=== PATIENT | male | born 1965 | race Caucasian/White ===

== ENCOUNTER 2017-04-05 12:28 | Emergency (ER) | payer SELFPAY ==
[~2017-04-05] VITALS: Ht 190.5 cm; Wt 96.5 kg
[~2017-04-05 12:28] MED LIST: AMLO5TAB2; ASPI-496 PO; HYDR12.58; INSU100I13; INSU100I18; METF750T PO; OMEP-110; SIMV20TA3 PO; VALS80TA3
[2017-04-05 13:25] LABS: HEMATOCRIT 49.4 % (39.2-51.8); HEMOGLOBIN 16.8 g/dL (13.7-18.0); WHITE BLOOD COUNT 11.8 x10^3/uL (3.4-10)
[2017-04-05] MEDS ORDERED: ONDANSETRON 2MG/ML, 2ML IVPush ONE (13:30)
[2017-04-05] MEDS ORDERED: KETOROLAC 30 MG/1 ML IVPush ONE (13:30)
[2017-04-05] MEDS ORDERED: LORazepam 2 MG/ML, 1ML IVPush ONE (13:30)
[2017-04-05 13:37] LABS: BLOOD UREA NITROGEN 16 mg/dL (7-18)
[2017-04-05 13:41] LABS: IS PT STATUS REG ER OR PRE ER? YES
[2017-04-05] MEDS ORDERED: ONDANSETRON 2MG/ML, 2ML ONE (13:44)
[2017-04-05] MEDS ORDERED: KETOROLAC 30 MG/1 ML ONE (13:44)
[2017-04-05] MEDS ORDERED: LORazepam 2 MG/ML, 1ML ONE (13:45)
[2017-04-05 13:58] VITALS: BP 147/69
== END 2017-04-05 14:53 | disposition home or self-care (01) ==
LOC: ED 14:47
DX: R07.9 Chest pain, unspecified (principal); F17.210 Nicotine dependence, cigarettes, uncomplicated; E11.9 Type 2 diabetes mellitus without complications; I10 Essential (primary) hypertension
CPT/HCPCS: 36415; 71020; 80048; 82040; 84484; 85025; 93005; 96374; 96375; 99285; J1885; J2060; J2405

== ENCOUNTER 2017-06-22 18:38 | Emergency (ER) | payer MEDICAID, OTHER ==
[~2017-06-22] VITALS: Ht 170.2 cm; Wt 98.3 kg
[2017-06-22 18:49] VITALS: BP 135/86
[2017-06-22] MEDS ORDERED: OXYcodone/APAP 5/325MG TABLET PO ONE (19:30)
[2017-06-22] MEDS ORDERED: DIAZEPAM 5 MG TABLET PO ONE (19:30)
[2017-06-22] MEDS ORDERED: KETOROLAC 30 MG/1 ML IM ONE (19:30)
[2017-06-22] MEDS ORDERED: KETOROLAC 30 MG/1 ML ONE (20:15)
[2017-06-22] MEDS ORDERED: DIAZEPAM 5 MG TABLET ONE (20:15)
[2017-06-22] MEDS ORDERED: OXYcodone/APAP 5/325MG TABLET ONE (20:15)
[2017-06-22] MEDS ORDERED: HYDROmorphone 1 MG/ML, 1ML IM ONE (21:30)
[2017-06-22] MEDS ORDERED: HYDROmorphone 2 MG/ML, 1ML ONE (22:32)
== END 2017-06-23 02:46 | disposition home or self-care (01) ==
LOC: ED 23:59
DX: S39.012A Strain of muscle, fascia and tendon of lower back, initial encounter (principal); M62.830 Muscle spasm of back; I10 Essential (primary) hypertension; E11.9 Type 2 diabetes mellitus without complications; F17.200 Nicotine dependence, unspecified, uncomplicated; Z90.49 Acquired absence of other specified parts of digestive tract; Z95.5 Presence of coronary angioplasty implant and graft
CPT/HCPCS: 72110; 72148; 96372; 99284; J1170; J1885

== ENCOUNTER 2017-07-07 16:05 | Observation (INO) | payer MEDICAID, OTHER ==
[~2017-07-07] VITALS: Ht 170.2 cm; Wt 97.8 kg
[~2017-07-07 16:05] MED LIST changes: -AMLO5TAB2; +AMLO5TAB2 PO; -HYDR12.58; +HYDR12.58 PO; -OMEP-110; +OMEP-110 PO; -VALS80TA3; +VALS80TA3 PO
[2017-07-07] MEDS ORDERED: ASPIRIN 81 MG TABLET CHEW ONE (16:24)
[2017-07-07] MEDS ORDERED: ASPIRIN 81 MG TABLET CHEW PO ONE (16:30)
[2017-07-07 16:51] LABS: BASOPHILS # (AUTO) 0.03 x10^3/uL (0-0.1); BASOPHILS % (AUTO) 0 % (0-1); EOSINOPHILS # (AUTO) 0.01 x10^3/uL (0-0.4); EOSINOPHILS % (AUTO) 0 % (1-7); LYMPHOCYTES % (AUTO) 15 % (22-44); MD NO; MEAN CORPUSCULAR HEMOGLOBIN 29.9 pg (27.5-34.5); MEAN CORPUSCULAR HGB CONC 33.3 g/dL (33.2-36.2); MEAN CORPUSCULAR VOLUME 89.7 fL (81-97); MEAN PLATELET VOLUME 8.9 fL (7.4-10.4); MONOCYTES # (AUTO) 0.37 x10^3/uL (0.2-0.8); MONOCYTES % (AUTO) 5 % (2-9); NEUTROPHILS # (AUTO) 6.38 x10^3/uL (1.8-6.8); NEUTROPHILS % (AUTO) 80 % (42-75); PLATELET COUNT 169 x10^3/uL (130-400); RED BLOOD COUNT 5.58 x10^6/uL (4.38-5.82); RED CELL DISTRIBUTION WIDTH 13.1 % (9.4-14.8)
[2017-07-07] MEDS ORDERED: INSU100V8 SQ (16:52)
[2017-07-07] MEDS ORDERED: HUM100VI6 SQ-INSULIN (16:52)
[2017-07-07] MEDS ORDERED: ONDANSETRON 2MG/ML, 2ML IVPush ONE (17:00)
[2017-07-07 17:01] LABS: ALANINE AMINOTRANSFERASE 52 U/L (12-78); ALBUMIN 4.1 g/dL (3.4-5.0); ANION GAP 10 mmol/L (5-15); CALCIUM 9.1 mg/dL (8.5-10.1); CHLORIDE 106 mmol/L (98-107); CREATININE 1.22 mg/dL (0.7-1.3)
[2017-07-07 17:05] LABS: ALKALINE PHOSPHATASE 72 U/L (45-117); BILIRUBIN,TOTAL 0.6 mg/dL (0.2-1.0); TOTAL PROTEIN 7.6 g/dL (6.4-8.2); TROPONIN I < 0.015 ng/mL (0.000-0.045)
[2017-07-07] MEDS ORDERED: MORPHINE SULFATE 4 MG/ML, 1ML ONE ×2 (17:05→17:44)
[2017-07-07] MEDS ORDERED: ONDANSETRON 2MG/ML, 2ML ONE (17:05)
[2017-07-07] MEDS: MORPHINE SULFATE 4 MG/ML, 1ML IVPush PRN ×2 (17:09→17:46)
[2017-07-07] MEDS ORDERED: BISACODYL 10 MG SUPP PR PRN (18:00)
[2017-07-07] MEDS ORDERED: NITROGLYCERIN 0.4 MG BOTTLE (25 TABS) SL PRN (18:00)
[2017-07-07] MEDS ORDERED: ONDANSETRON 2MG/ML, 2ML IVPush PRN (18:00)
[2017-07-07] MEDS ORDERED: TEMAZEPAM 15 MG CAPSULE PO PRN (18:00)
[2017-07-07] MEDS ORDERED: ENALAPRILAT 1.25 MG/ML, 2ML IVPush PRN (18:00)
[2017-07-07] MEDS ORDERED: ACETAMINOPHEN 325 MG TABLET PO PRN (18:00)
[2017-07-07] MEDS ORDERED: OXYcodone/APAP 10/325MG TABLET ONE (18:41)
[2017-07-07] MEDS ORDERED: OXYcodone/APAP 10/325MG TABLET PO ONE (19:00)
[2017-07-07 19:20] VITALS: BP 134/80
[2017-07-07] MEDS: HEPARIN 5,000 UNITS/ML, 1ML SQ SCH (19:55)
[2017-07-07 22:48] LABS: TROPONIN I < 0.015 ng/mL (0.000-0.045)
[2017-07-07] MEDS: INSULIN LISPRO 100 UNITS/ML, PEN SQ-INSULIN SCH (22:57)
[2017-07-07 23:34] LABS: MICROSCOPIC NOT IND
[2017-07-07 23:39] LABS: CULTURE INDICATED? NO
[2017-07-07] MEDS: HYDROcodone/APAP 10/325 MG TABLET PO PRN (23:52)
[2017-07-08 01:25] VITALS: BP 145/71
[2017-07-08] MEDS: HYDROcodone/APAP 10/325 MG TABLET PO PRN ×3 (03:52→14:15)
[2017-07-08] MEDS: HEPARIN 5,000 UNITS/ML, 1ML SQ SCH ×2 (03:53→12:31)
[2017-07-08 05:10] LABS: BASOPHILS # (AUTO) 0.05 x10^3/uL (0-0.1); BASOPHILS % (AUTO) 1 % (0-1); EOSINOPHILS # (AUTO) 0.08 x10^3/uL (0-0.4); EOSINOPHILS % (AUTO) 1 % (1-7); LYMPHOCYTES # (AUTO) 2.86 x10^3/uL (1-3.4); LYMPHOCYTES % (AUTO) 36 % (22-44); MD NO; MEAN CORPUSCULAR HEMOGLOBIN 30.7 pg (27.5-34.5); MEAN CORPUSCULAR HGB CONC 34.2 g/dL (33.2-36.2); MEAN CORPUSCULAR VOLUME 89.7 fL (81-97); MEAN PLATELET VOLUME 9.1 fL (7.4-10.4); MONOCYTES % (AUTO) 8 % (2-9); NEUTROPHILS # (AUTO) 4.38 x10^3/uL (1.8-6.8); NEUTROPHILS % (AUTO) 55 % (42-75); PLATELET COUNT 141 x10^3/uL (130-400); RED BLOOD COUNT 4.95 x10^6/uL (4.38-5.82); RED CELL DISTRIBUTION WIDTH 13.4 % (9.4-14.8)
[2017-07-08 05:13] LABS: ANION GAP 9 mmol/L (5-15); CALCIUM 8.7 mg/dL (8.5-10.1); CHLORIDE 106 mmol/L (98-107)
[2017-07-08 05:19] LABS: CREATININE 0.83 mg/dL (0.7-1.3); TROPONIN I < 0.015 ng/mL (0.000-0.045)
[2017-07-08 07:19] VITALS: BP 130/83
[2017-07-08] MEDS: INSULIN LISPRO 100 UNITS/ML, PEN SQ-INSULIN SCH ×2 (08:41→12:30)
[2017-07-08] MEDS ORDERED: HYDROCHLOROTHIAZIDE 12.5 MG CAPSULE PO SCH (09:00)
[2017-07-08] MEDS ORDERED: AMLODIPINE 5 MG TABLET PO SCH (09:00)
[2017-07-08] MEDS ORDERED: INSULIN GLARGINE 100 UNITS/ML, PEN SQ-INSULIN SCH (09:00)
[2017-07-08] MEDS ORDERED: OMEPRAZOLE 20 MG CAPSULE.DR PO SCH (09:00)
[2017-07-08] MEDS ORDERED: IBUPROFEN 600 MG TABLET PO SCH (09:30)
[2017-07-08] MEDS ORDERED: IBUPROFEN 200 MG TABLET ONE (09:57)
[2017-07-08 13:03] VITALS: BP 121/72
== END 2017-07-08 16:44 | disposition home or self-care (01) ==
LOC: ED 17:21 → INTOOBSV 17:22 → EDIP 17:22 → ED 17:47 → 5SO 19:42 → DCLOUNGE 07-08 16:30
PROVIDERS: ADMIT Family Medicine; ATTEND Family Medicine
DX: R07.89 Other chest pain (principal); N45.1 Epididymitis; E11.65 Type 2 diabetes mellitus with hyperglycemia; I25.10 Atherosclerotic heart disease of native coronary artery without angina pectoris; I11.9 Hypertensive heart disease without heart failure; H72.92 Unspecified perforation of tympanic membrane, left ear; E66.9 Obesity, unspecified; Z72.0 Tobacco use; Z95.5 Presence of coronary angioplasty implant and graft; Z83.3 Family history of diabetes mellitus; Z79.82 Long term (current) use of aspirin; Z79.4 Long term (current) use of insulin
CPT/HCPCS: 36415; 70450; 71045; 80048; 80053; 81003; 82962; 83735; 83880; 84484; 85025; 93005; 96372; 96374; 96375; 96376; 99285; G0378; J1644; J1815; J2405

== ENCOUNTER 2017-07-09 20:56 | Emergency (ER) | payer MEDICAID, OTHER ==
[~2017-07-09] VITALS: Ht 170.2 cm; Wt 100.0 kg
[~2017-07-09 20:56] MED LIST changes: +HUM100VI6 SQ-INSULIN; +INSU100V8 SQ
[2017-07-09] MEDS ORDERED: ASPIRIN 81 MG TABLET CHEW PO ONE (22:00)
[2017-07-09] MEDS ORDERED: SODIUM CHLORIDE FLUSH 10ML SYR IVF ONE (22:00)
[2017-07-09] MEDS ORDERED: ONDANSETRON 2MG/ML, 2ML IVPush ONE (22:00)
[2017-07-09 22:20] LABS: BASOPHILS # (AUTO) 0.03 x10^3/uL (0-0.1); BASOPHILS % (AUTO) 0 % (0-1); EOSINOPHILS # (AUTO) 0.03 x10^3/uL (0-0.4); EOSINOPHILS % (AUTO) 0 % (1-7); LYMPHOCYTES # (AUTO) 2.27 x10^3/uL (1-3.4); LYMPHOCYTES % (AUTO) 22 % (22-44); MD NO; MEAN CORPUSCULAR HEMOGLOBIN 30.8 pg (27.5-34.5); MEAN CORPUSCULAR HGB CONC 34.4 g/dL (33.2-36.2); MEAN CORPUSCULAR VOLUME 89.5 fL (81-97); MEAN PLATELET VOLUME 8.8 fL (7.4-10.4); MONOCYTES # (AUTO) 0.74 x10^3/uL (0.2-0.8); MONOCYTES % (AUTO) 7 % (2-9); NEUTROPHILS % (AUTO) 71 % (42-75); PLATELET COUNT 176 x10^3/uL (130-400); RED BLOOD COUNT 5.56 x10^6/uL (4.38-5.82); RED CELL DISTRIBUTION WIDTH 13.4 % (9.4-14.8)
[2017-07-09] MEDS ORDERED: ONDANSETRON 2MG/ML, 2ML ONE (22:23)
[2017-07-09] MEDS ORDERED: ASPIRIN 81 MG TABLET CHEW ONE (22:23)
[2017-07-09 22:31] LABS: ALBUMIN 4.1 g/dL (3.4-5.0); ANION GAP 9 mmol/L (5-15); CALCIUM 9.1 mg/dL (8.5-10.1); CHLORIDE 106 mmol/L (98-107); CREATININE 1.07 mg/dL (0.7-1.3)
[2017-07-09 22:35] LABS: TROPONIN I < 0.015 ng/mL (0.000-0.045)
[2017-07-09 22:41] LABS: MICROSCOPIC NOT IND
[2017-07-09] MEDS ORDERED: OMNIPAQUE 350 MG/ML, 100ML BOTTLE ONE (22:47)
[2017-07-09 22:54] LABS: CULTURE INDICATED? NO
[2017-07-09] MEDS ORDERED: ACETAMINOPHEN 325 MG TABLET PO ONE (23:00)
[2017-07-09] MEDS ORDERED: ACETAMINOPHEN 325 MG TABLET ONE (23:01)
[2017-07-09] MEDS ORDERED: morphine SULFATE 10 MG/ML, 1ML ONE (23:52)
[2017-07-09 23:59] VITALS: BP 126/79
[2017-07-10] MEDS ORDERED: MORPHINE SULFATE 4 MG/ML, 1ML IVPush ONE
[2017-09-01] MEDS ORDERED: BISM262T9 PO (21:35)
[2017-09-01] MEDS ORDERED: METR500T PO (21:35)
[2017-09-01] MEDS ORDERED: DOXY100C15 PO (21:35)
== END 2017-07-10 00:46 | disposition home or self-care (01) ==
LOC: ED 21:39
DX: R07.89 Other chest pain (principal); N43.3 Hydrocele, unspecified; I10 Essential (primary) hypertension; E11.9 Type 2 diabetes mellitus without complications; Z90.49 Acquired absence of other specified parts of digestive tract; Z95.5 Presence of coronary angioplasty implant and graft
CPT/HCPCS: 36415; 71045; 71275; 76870; 80048; 81003; 82040; 84484; 85025; 93005; 96374; 96375; 99285; J2405; Q9967

== ENCOUNTER 2017-08-07 15:51 | Observation (INO) | payer MEDICAID, OTHER ==
[~2017-08-07] VITALS: Ht 170.2 cm; Wt 103.0 kg
[2017-08-07 16:12] LABS: BASOPHILS # (AUTO) 0.02 x10^3/uL (0-0.1); BASOPHILS % (AUTO) 0 % (0-1); EOSINOPHILS # (AUTO) 0.01 x10^3/uL (0-0.4); EOSINOPHILS % (AUTO) 0 % (1-7); LYMPHOCYTES % (AUTO) 21 % (22-44); MD NO; MEAN CORPUSCULAR HEMOGLOBIN 28.8 pg (27.5-34.5); MEAN CORPUSCULAR HGB CONC 32.3 g/dL (33.2-36.2); MEAN CORPUSCULAR VOLUME 89.3 fL (81-97); MEAN PLATELET VOLUME 9.2 fL (7.4-10.4); MONOCYTES # (AUTO) 0.42 x10^3/uL (0.2-0.8); MONOCYTES % (AUTO) 6 % (2-9); NEUTROPHILS # (AUTO) 5.27 x10^3/uL (1.8-6.8); NEUTROPHILS % (AUTO) 73 % (42-75); PLATELET COUNT 159 x10^3/uL (130-400); RED CELL DISTRIBUTION WIDTH 13.5 % (9.4-14.8)
[2017-08-07 16:21] LABS: INTERNATIONAL NORMALIZED RATIO 1.03 (0.93-1.1); PROTHROMBIN TIME 10.6 Seconds (9.6-11.5)
[2017-08-07 16:25] LABS: ALANINE AMINOTRANSFERASE 51 U/L (12-78); ALBUMIN 3.7 g/dL (3.4-5.0); ANION GAP 9 mmol/L (5-15); CALCIUM 8.8 mg/dL (8.5-10.1); CHLORIDE 106 mmol/L (98-107); CREATININE 0.88 mg/dL (0.7-1.3)
[2017-08-07 16:29] LABS: ALKALINE PHOSPHATASE 81 U/L (45-117); BILIRUBIN,TOTAL 0.5 mg/dL (0.2-1.0); TOTAL PROTEIN 6.8 g/dL (6.4-8.2); TROPONIN I < 0.015 ng/mL (0.000-0.045)
[2017-08-07] MEDS ORDERED: SODIUM CHLORIDE FLUSH 10ML SYR IVF ONE (16:30)
[2017-08-07] MEDS ORDERED: MAALOX/HYOSCYAMINE/LIDOCAINE 45 ML BTL PO ONE (16:30)
[2017-08-07] MEDS ORDERED: ONDANSETRON 2MG/ML, 2ML IVPush ONE (16:30)
[2017-08-07] MEDS: PLEASE ENTER HEIGHT AND WEIGHT MC SCH (16:30)
[2017-08-07] MEDS ORDERED: FAMOTIDINE 20 MG/2 ML IVPush ONE (16:30)
[2017-08-07] MEDS ORDERED: MORPHINE SULFATE 4 MG/ML, 1ML IVPush PRN (16:30)
[2017-08-07] MEDS ORDERED: MAALOX/HYOSCYAMINE/LIDOCAINE 45 ML BTL ONE (16:45)
[2017-08-07] MEDS ORDERED: MORPHINE SULFATE 4 MG/ML, 1ML ONE ×2 (16:45→18:00)
[2017-08-07] MEDS ORDERED: FAMOTIDINE 20 MG/2 ML ONE (16:46)
[2017-08-07] MEDS ORDERED: AMLO5TAB2 PO (18:11)
[2017-08-07] MEDS ORDERED: LISI40TA PO (18:11)
[2017-08-07] MEDS ORDERED: HYDR12.53 PO (18:11)
[2017-08-07] MEDS ORDERED: OMEP-110 PO (18:11)
[2017-08-07] MEDS ORDERED: METF1000 PO (18:11)
[2017-08-07] MEDS ORDERED: HYDR-883 PO (18:13)
[2017-08-07] MEDS ORDERED: NITROGLYCERIN 0.4 MG/SPRAY SL PRN (19:00)
[2017-08-07] MEDS ORDERED: ONDANSETRON ODT 4 MG PO PRN (19:00)
[2017-08-07] MEDS ORDERED: NITROGLYCERIN 0.4 MG BOTTLE (25 TABS) SL PRN (19:00)
[2017-08-07] MEDS ORDERED: DOCUSATE 100 MG CAPSULE PO PRN (19:00)
[2017-08-07] MEDS ORDERED: ACETAMINOPHEN 325 MG TABLET PO PRN (19:00)
[2017-08-07] MEDS ORDERED: ENALAPRILAT 1.25 MG/ML, 2ML IVPush PRN (19:00)
[2017-08-07] MEDS ORDERED: TEMAZEPAM 15 MG CAPSULE PO PRN (19:00)
[2017-08-07 19:10] VITALS: BP 138/79
[2017-08-07] MEDS: OMEPRAZOLE 20 MG CAPSULE.DR PO SCH (21:32)
[2017-08-07] MEDS: HYDROCHLOROTHIAZIDE 25 MG TABLET PO SCH (21:33)
[2017-08-07] MEDS: INSULIN HUMULIN 70/30, 3ML PEN SQ-INSULIN SCH (22:15)
[2017-08-07 22:18] VITALS: BP 143/81
[2017-08-07 22:23] LABS: TROPONIN I < 0.015 ng/mL (0.000-0.045)
[2017-08-07 22:24] VITALS: BP 132/77
[2017-08-07 22:30] VITALS: BP 152/77
[2017-08-07 22:35] VITALS: BP 115/67
[2017-08-07 22:41] VITALS: BP 116/70
[2017-08-08] MEDS: PLEASE ENTER HEIGHT AND WEIGHT MC SCH ×3 (00:30→16:30)
[2017-08-08 01:55] VITALS: BP 130/75
[2017-08-08 04:23] LABS: BASOPHILS # (AUTO) 0.06 x10^3/uL (0-0.1); BASOPHILS % (AUTO) 1 % (0-1); EOSINOPHILS # (AUTO) 0.05 x10^3/uL (0-0.4); EOSINOPHILS % (AUTO) 1 % (1-7); LYMPHOCYTES # (AUTO) 2.48 x10^3/uL (1-3.4); LYMPHOCYTES % (AUTO) 38 % (22-44); MD NO; MEAN CORPUSCULAR HEMOGLOBIN 30.5 pg (27.5-34.5); MEAN CORPUSCULAR HGB CONC 34.5 g/dL (33.2-36.2); MEAN CORPUSCULAR VOLUME 88.3 fL (81-97); MEAN PLATELET VOLUME 8.8 fL (7.4-10.4); MONOCYTES # (AUTO) 0.57 x10^3/uL (0.2-0.8); MONOCYTES % (AUTO) 9 % (2-9); NEUTROPHILS # (AUTO) 3.31 x10^3/uL (1.8-6.8); NEUTROPHILS % (AUTO) 51 % (42-75); PLATELET COUNT 151 x10^3/uL (130-400); RED BLOOD COUNT 5.13 x10^6/uL (4.38-5.82); RED CELL DISTRIBUTION WIDTH 13.7 % (9.4-14.8)
[2017-08-08 04:34] LABS: ANION GAP 5 mmol/L (5-15); CALCIUM 8.6 mg/dL (8.5-10.1); CHLORIDE 105 mmol/L (98-107); CHOLESTEROL, TOTAL 173 mg/dL (140-239); CREATININE 0.98 mg/dL (0.7-1.3); TRIGLYCERIDES 254 mg/dL (50-200); VLDL CHOLESTEROL 51 mg/dL (0-25)
[2017-08-08 04:38] LABS: CHOL/HDL RATIO 5.1; HDL CHOL % 20 % (26-37); HDL CHOLESTEROL (DIRECT) 34 mg/dL (40-60); LDL CHOLESTEROL,CALCULATED 88 mg/dL (54-169); LDL/HDL RATIO 2.6 (0.5-3.0); TROPONIN I < 0.015 ng/mL (0.000-0.045)
[2017-08-08] MEDS: ASPIRIN 81 MG TABLET EC PO SCH (06:11)
[2017-08-08 07:23] VITALS: BP 130/79
[2017-08-08] MEDS: INSULIN HUMULIN 70/30, 3ML PEN SQ-INSULIN SCH ×3 (08:09→16:18)
[2017-08-08] MEDS ORDERED: AMLODIPINE 5 MG TABLET PO SCH (09:00)
[2017-08-08] MEDS: ISOSORBIDE MONONITRATE ER 60 MG TABLET PO SCH (09:10)
[2017-08-08] MEDS: LISINOPRIL 20 MG TABLET PO SCH ×2 (09:10→21:16)
[2017-08-08] MEDS: HYDROCHLOROTHIAZIDE 25 MG TABLET PO SCH ×2 (09:10→21:16)
[2017-08-08] MEDS: OMEPRAZOLE 20 MG CAPSULE.DR PO SCH ×2 (09:10→21:16)
[2017-08-08] MEDS: INSULIN GLARGINE 100 UNITS/ML, PEN SQ-INSULIN SCH (09:43)
[2017-08-08] MEDS ORDERED: IBUPROFEN 600 MG TABLET ONE (11:18)
[2017-08-08] MEDS: IBUPROFEN 200 MG TABLET PO SCH ×3 (11:19→21:15)
[2017-08-08 14:10] VITALS: BP 108/64
[2017-08-08] MEDS ORDERED: CALCIUM CARBONATE 500 MG TAB.CHEW PO PRN (16:30)
[2017-08-08 20:00] VITALS: BP 117/65
[2017-08-09 01:12] VITALS: BP 112/69
[2017-08-09] MEDS: ASPIRIN 81 MG TABLET EC PO SCH (05:19)
[2017-08-09 07:52] VITALS: BP 130/77
[2017-08-09] MEDS: IBUPROFEN 200 MG TABLET PO SCH (07:57)
[2017-08-09] MEDS: LISINOPRIL 20 MG TABLET PO SCH (07:57)
[2017-08-09] MEDS: ISOSORBIDE MONONITRATE ER 60 MG TABLET PO SCH (07:58)
[2017-08-09] MEDS: OMEPRAZOLE 20 MG CAPSULE.DR PO SCH (07:58)
[2017-08-09] MEDS: INSULIN GLARGINE 100 UNITS/ML, PEN SQ-INSULIN SCH (07:59)
[2017-08-09] MEDS: HYDROCHLOROTHIAZIDE 25 MG TABLET PO SCH (07:59)
[2017-08-09] MEDS: INSULIN HUMULIN 70/30, 3ML PEN SQ-INSULIN SCH ×2 (08:00→12:04)
[2017-08-09] MEDS ORDERED: ISOS60TA36 PO (12:04)
== END 2017-08-09 14:20 | disposition home or self-care (01) ==
LOC: ED 16:34 → EDIP 18:05 → INTOOBSV 18:05 → 5SO 19:31 → DCLOUNGE 08-09 14:16
PROVIDERS: ADMIT Hospitalist; ATTEND Family Medicine
DX: R07.9 Chest pain, unspecified (principal); I25.10 Atherosclerotic heart disease of native coronary artery without angina pectoris; I11.9 Hypertensive heart disease without heart failure; Z87.891 Personal history of nicotine dependence; E11.65 Type 2 diabetes mellitus with hyperglycemia; K21.9 Gastro-esophageal reflux disease without esophagitis; E78.5 Hyperlipidemia, unspecified; R00.1 Bradycardia, unspecified; Z83.3 Family history of diabetes mellitus
CPT/HCPCS: 36415; 71045; 80048; 80053; 80061; 82962; 83690; 83735; 83880; 84484; 85025; 85610; 85730; 93005; 93306; 96372; 96374; 96375; 99285; G0378; J1815; S0028

== ENCOUNTER 2017-08-16 16:48 | Inpatient (IN) | payer MEDICAID, OTHER ==
[~2017-08-16] VITALS: Ht 170.2 cm; Wt 101.0 kg
[~2017-08-16 16:48] MED LIST changes: +HYDR-883 PO; +HYDR12.53 PO; +ISOS60TA36 PO; +LISI40TA PO; +METF1000 PO
[2017-08-16] MEDS ORDERED: SODIUM CHLORIDE 0.9% 1,000 ML IV ONE (17:41)
[2017-08-16] MEDS ORDERED: SODIUM CHLORIDE 0.9% 1,000ML IVBOLUS ONE (18:00)
[2017-08-16] MEDS ORDERED: ONDANSETRON 2MG/ML, 2ML IVPush ONE (18:00)
[2017-08-16 18:08] LABS: BASOPHILS # (AUTO) 0.03 x10^3/uL (0-0.1); BASOPHILS % (AUTO) 0 % (0-1); EOSINOPHILS # (AUTO) 0.05 x10^3/uL (0-0.4); EOSINOPHILS % (AUTO) 1 % (1-7); LYMPHOCYTES # (AUTO) 1.58 x10^3/uL (1-3.4); LYMPHOCYTES % (AUTO) 23 % (22-44); MD NO; MEAN CORPUSCULAR HEMOGLOBIN 30.6 pg (27.5-34.5); MEAN CORPUSCULAR HGB CONC 34.3 g/dL (33.2-36.2); MEAN CORPUSCULAR VOLUME 89.2 fL (81-97); MEAN PLATELET VOLUME 9.5 fL (7.4-10.4); MONOCYTES # (AUTO) 0.86 x10^3/uL (0.2-0.8); MONOCYTES % (AUTO) 13 % (2-9); NEUTROPHILS # (AUTO) 4.35 x10^3/uL (1.8-6.8); NEUTROPHILS % (AUTO) 63 % (42-75); PLATELET COUNT 174 x10^3/uL (130-400); RED BLOOD COUNT 5.78 x10^6/uL (4.38-5.82); RED CELL DISTRIBUTION WIDTH 13.7 % (9.4-14.8)
[2017-08-16 18:13] LABS: ALANINE AMINOTRANSFERASE 66 U/L (12-78); ALBUMIN 4.2 g/dL (3.4-5.0); ANION GAP 10 mmol/L (5-15); CALCIUM 9.4 mg/dL (8.5-10.1); CHLORIDE 105 mmol/L (98-107); CREATININE 1.13 mg/dL (0.7-1.3)
[2017-08-16 18:16] LABS: ALKALINE PHOSPHATASE 103 U/L (45-117); BILIRUBIN,TOTAL 0.4 mg/dL (0.2-1.0); TOTAL PROTEIN 7.8 g/dL (6.4-8.2)
[2017-08-16] MEDS ORDERED: MORPHINE SULFATE 4 MG/ML, 1ML ONE ×2 (18:49→20:46)
[2017-08-16] MEDS ORDERED: ONDANSETRON 2MG/ML, 2ML ONE (18:49)
[2017-08-16] MEDS: MORPHINE SULFATE 4 MG/ML, 1ML IVPush PRN ×2 (18:58→20:50)
[2017-08-16] MEDS ORDERED: MAALOX/HYOSCYAMINE/LIDOCAINE 45 ML BTL PO ONE (19:30)
[2017-08-16] MEDS ORDERED: MAALOX/HYOSCYAMINE/LIDOCAINE 45 ML BTL ONE (19:48)
[2017-08-16] MEDS ORDERED: PROMETHAZINE 25 MG/ML, 1ML IM ONE (20:30)
[2017-08-16] MEDS ORDERED: OMNIPAQUE 350 MG/ML, 100ML BOTTLE ONE (20:45)
[2017-08-16] MEDS ORDERED: PROMETHAZINE 25 MG/ML, 1ML ONE (20:46)
[2017-08-16 21:16] LABS: MICROSCOPIC NOT IND
[2017-08-16 21:20] LABS: CULTURE INDICATED? NO
[2017-08-16] MEDS ORDERED: CLARITHROMYCIN 500 MG TABLET PO ONE (22:00)
[2017-08-16] MEDS ORDERED: PANTOPRAZOLE 40 MG IV ONE (22:01)
[2017-08-16] MEDS: AMOXICILLIN 500 MG CAPSULE PO SCH (22:21)
[2017-08-16] MEDS ORDERED: GLUCAGON 1 MG IM PRN (22:30)
[2017-08-16] MEDS ORDERED: DEXTROSE 4 GM TAB.CHEW PO PRN (22:30)
[2017-08-16] MEDS ORDERED: hydrALAzine 20 MG/ML, 1ML IVPush PRN (22:30)
[2017-08-16] MEDS ORDERED: ONDANSETRON 2MG/ML, 2ML IVPush PRN (22:30)
[2017-08-16] MEDS ORDERED: DEXTROSE 50%, 50ML SYRINGE IVPush PRN (22:30)
[2017-08-16] MEDS ORDERED: ACETAMINOPHEN 325 MG TABLET PO PRN (22:30)
[2017-08-16] MEDS: INSULIN LISPRO 100 UNITS/ML, PEN SQ-INSULIN SCH (23:00)
[2017-08-17] MEDS ORDERED: HYDR-879 PO (00:01)
[2017-08-17] MEDS: SODIUM CHLORIDE 0.9% 1,000 ML IV SCH ×3 (00:16→22:52)
[2017-08-17] MEDS ORDERED: morphine SULFATE 10 MG/ML, 1ML IVPush ONE (03:10)
[2017-08-17 03:14] VITALS: BP 125/78
[2017-08-17 06:51] VITALS: BP 137/82
[2017-08-17] MEDS ORDERED: PANTOPRAZOLE 40 MG IV IVPush SCH ×2 (07:30→09:00)
[2017-08-17] MEDS: INSULIN LISPRO 100 UNITS/ML, PEN SQ-INSULIN SCH ×4 (08:07→20:13)
[2017-08-17] MEDS: SODIUM CHLORIDE FLUSH 10ML SYR IVF SCH ×2 (09:00→20:09)
[2017-08-17] MEDS: morphine SULFATE 10 MG/ML, 1ML IVPush PRN ×2 (10:30→17:31)
[2017-08-17] MEDS: AMOXICILLIN 500 MG CAPSULE PO SCH ×2 (10:30→20:08)
[2017-08-17 13:09] VITALS: BP 127/88
[2017-08-17] MEDS ORDERED: FENTANYL PF 100 MCG/2ML ONE (15:12)
[2017-08-17] MEDS ORDERED: MIDAZOLAM 1 MG/ML, 2ML ONE (15:12)
[2017-08-17] MEDS: PANTOPRAZOLE 40 MG IV IVPush SCH (18:29)
[2017-08-17] MEDS ORDERED: HYDROcodone/APAP 10/325 MG TABLET ONE (18:50)
[2017-08-17] MEDS: HYDROcodone/APAP 10/325 MG TABLET PO PRN ×2 (18:53→20:08)
[2017-08-17 20:29] VITALS: BP 134/72
[2017-08-18] MEDS: HYDROcodone/APAP 10/325 MG TABLET PO PRN ×4 (01:28→15:02)
[2017-08-18 01:55] VITALS: BP 127/77
[2017-08-18] MEDS: PANTOPRAZOLE 40 MG IV IVPush SCH (06:20)
[2017-08-18] MEDS: SODIUM CHLORIDE FLUSH 10ML SYR IVF SCH (07:30)
[2017-08-18] MEDS: AMOXICILLIN 500 MG CAPSULE PO SCH (07:31)
[2017-08-18] MEDS: INSULIN LISPRO 100 UNITS/ML, PEN SQ-INSULIN SCH ×2 (07:31→12:18)
[2017-08-18 08:19] VITALS: BP 147/84
[2017-08-18] MEDS: SODIUM CHLORIDE 0.9% 1,000 ML IV SCH (08:30)
[2017-08-18 13:38] VITALS: BP 135/72
== END 2017-08-18 15:45 | disposition home or self-care (01) | DRG 379 ==
LOC: ED 21:12 → EDIP 21:30 → 4NOR 23:39 → DCLOUNGE 08-18 15:35
PROVIDERS: ADMIT Hospitalist; ATTEND Hospitalist
PROC: 0DJ08ZZ Inspection of Upper Intestinal Tract, Via Natural or Artificial Opening Endoscopic (ICD-10-PCS; principal; 2017-08-17 15:30)
DX: K28.0 Acute gastrojejunal ulcer with hemorrhage (principal); E11.65 Type 2 diabetes mellitus with hyperglycemia; I11.9 Hypertensive heart disease without heart failure; B96.81 Helicobacter pylori [H. pylori] as the cause of diseases classified elsewhere; E66.9 Obesity, unspecified; E78.5 Hyperlipidemia, unspecified; K31.89 Other diseases of stomach and duodenum; F17.210 Nicotine dependence, cigarettes, uncomplicated; I25.10 Atherosclerotic heart disease of native coronary artery without angina pectoris; K29.60 Other gastritis without bleeding; Z79.891 Long term (current) use of opiate analgesic; Z83.3 Family history of diabetes mellitus; Z86.19 Personal history of other infectious and parasitic diseases; Z90.49 Acquired absence of other specified parts of digestive tract; Z95.5 Presence of coronary angioplasty implant and graft; Z68.34 Body mass index [BMI] 34.0-34.9, adult
CPT/HCPCS: 36415; 74022; 74177; 76705; 80053; 81003; 82962; 83690; 85025; 86677; 96361; 96372; 96374; 96375; 96376; 99152; 99153; J2250; J2405; J2550; J3010; Q9967; C9113; J1815; J2270; J7030

== ENCOUNTER 2017-09-05 21:04 | Emergency (ER) | payer SELFPAY ==
[~2017-09-05] VITALS: Ht 170.2 cm; Wt 99.0 kg
[~2017-09-05 21:04] MED LIST changes: +BISM262T9 PO; +DOXY100C15 PO; +HYDR-879 PO; +METR500T PO
[2017-09-05 22:20] LABS: BASOPHILS # (AUTO) 0.04 x10^3/uL (0-0.1); BASOPHILS % (AUTO) 1 % (0-1); EOSINOPHILS # (AUTO) 0.06 x10^3/uL (0-0.4); EOSINOPHILS % (AUTO) 1 % (1-7); LYMPHOCYTES # (AUTO) 2.13 x10^3/uL (1-3.4); LYMPHOCYTES % (AUTO) 31 % (22-44); MD NO; MEAN CORPUSCULAR HEMOGLOBIN 29.8 pg (27.5-34.5); MEAN CORPUSCULAR HGB CONC 33.9 g/dL (33.2-36.2); MEAN CORPUSCULAR VOLUME 87.9 fL (81-97); MEAN PLATELET VOLUME 8.5 fL (7.4-10.4); MONOCYTES # (AUTO) 0.54 x10^3/uL (0.2-0.8); MONOCYTES % (AUTO) 8 % (2-9); NEUTROPHILS # (AUTO) 4.04 x10^3/uL (1.8-6.8); NEUTROPHILS % (AUTO) 59 % (42-75); PLATELET COUNT 164 x10^3/uL (130-400); RED BLOOD COUNT 5.27 x10^6/uL (4.38-5.82); RED CELL DISTRIBUTION WIDTH 13.5 % (9.4-14.8)
[2017-09-05 22:28] LABS: MICROSCOPIC NOT IND
[2017-09-05 22:31] LABS: CULTURE INDICATED? NO
[2017-09-05 22:33] LABS: ALBUMIN 3.8 g/dL (3.4-5.0); ANION GAP 9 mmol/L (5-15); CALCIUM 8.9 mg/dL (8.5-10.1); CHLORIDE 105 mmol/L (98-107)
[2017-09-05 22:39] LABS: ALANINE AMINOTRANSFERASE 59 U/L (12-78); ALKALINE PHOSPHATASE 98 U/L (45-117); BILIRUBIN,TOTAL 0.4 mg/dL (0.2-1.0); CREATININE 0.95 mg/dL (0.7-1.3); TOTAL PROTEIN 7.2 g/dL (6.4-8.2); TROPONIN I < 0.015 ng/mL (0.000-0.045)
[2017-09-05] MEDS ORDERED: MAALOX/HYOSCYAMINE/LIDOCAINE 45 ML BTL ONE (22:49)
[2017-09-05] MEDS ORDERED: MAALOX/HYOSCYAMINE/LIDOCAINE 45 ML BTL PO ONE (23:00)
[2017-09-05 23:29] VITALS: BP 121/80
== END 2017-09-05 23:32 | disposition home or self-care (01) ==
LOC: ED 22:17
DX: R10.13 Epigastric pain (principal); E78.5 Hyperlipidemia, unspecified; E11.9 Type 2 diabetes mellitus without complications; I10 Essential (primary) hypertension; Z90.49 Acquired absence of other specified parts of digestive tract; I25.10 Atherosclerotic heart disease of native coronary artery without angina pectoris; Z95.5 Presence of coronary angioplasty implant and graft
CPT/HCPCS: 36415; 74022; 80053; 81003; 83690; 83880; 84484; 85025; 93005; 99285

== ENCOUNTER 2017-09-28 13:27 | Emergency (ER) | payer MEDICARE, OTHER ==
[~2017-09-28] VITALS: Ht 170.2 cm; Wt 105.3 kg
[2017-09-28] MEDS ORDERED: NITROGLYCERIN (14:18)
[2017-09-28] MEDS ORDERED: antibiotic (14:20)
[2017-09-28] MEDS ORDERED: HYDROcodone/APAP 5/325 TABLET PO ONE (15:30)
[2017-09-28] MEDS ORDERED: MAALOX/HYOSCYAMINE/LIDOCAINE 45 ML BTL PO ONE (15:30)
[2017-09-28] MEDS ORDERED: HYDROcodone/APAP 5/325 TABLET ONE (15:39)
[2017-09-28] MEDS ORDERED: MAALOX/HYOSCYAMINE/LIDOCAINE 45 ML BTL ONE (15:40)
[2017-09-28] MEDS ORDERED: AMLO10TA2 PO (15:45)
[2017-09-28] MEDS ORDERED: LOSA1TAB25 PO (15:45)
[2017-09-28 15:53] LABS: BASOPHILS # (AUTO) 0.04 x10^3/uL (0-0.1); BASOPHILS % (AUTO) 1 % (0-1); EOSINOPHILS # (AUTO) 0.07 x10^3/uL (0-0.4); EOSINOPHILS % (AUTO) 1 % (1-7); LYMPHOCYTES # (AUTO) 2.45 x10^3/uL (1-3.4); LYMPHOCYTES % (AUTO) 34 % (22-44); MD NO; MEAN CORPUSCULAR HEMOGLOBIN 29.8 pg (27.5-34.5); MEAN CORPUSCULAR VOLUME 87.5 fL (81-97); MEAN PLATELET VOLUME 8.8 fL (7.4-10.4); MONOCYTES # (AUTO) 0.56 x10^3/uL (0.2-0.8); MONOCYTES % (AUTO) 8 % (2-9); NEUTROPHILS # (AUTO) 4.14 x10^3/uL (1.8-6.8); NEUTROPHILS % (AUTO) 57 % (42-75); PLATELET COUNT 156 x10^3/uL (130-400); RED BLOOD COUNT 5.33 x10^6/uL (4.38-5.82); RED CELL DISTRIBUTION WIDTH 13.5 % (9.4-14.8)
[2017-09-28 16:03] LABS: ALANINE AMINOTRANSFERASE 72 U/L (12-78); ALBUMIN 4.1 g/dL (3.4-5.0); ANION GAP 10 mmol/L (5-15); CALCIUM 8.8 mg/dL (8.5-10.1); CHLORIDE 98 mmol/L (98-107); CREATININE 1.01 mg/dL (0.7-1.3)
[2017-09-28 16:07] LABS: ALKALINE PHOSPHATASE 119 U/L (45-117); BILIRUBIN,TOTAL 0.3 mg/dL (0.2-1.0); TOTAL PROTEIN 7.7 g/dL (6.4-8.2); TROPONIN I < 0.015 ng/mL (0.000-0.045)
[2017-09-28 17:49] VITALS: BP 120/90
== END 2017-09-28 18:32 | disposition home or self-care (01) ==
LOC: ED 17:24
DX: K21.9 Gastro-esophageal reflux disease without esophagitis (principal); I10 Essential (primary) hypertension; R07.89 Other chest pain; E11.9 Type 2 diabetes mellitus without complications; I25.10 Atherosclerotic heart disease of native coronary artery without angina pectoris; Z90.49 Acquired absence of other specified parts of digestive tract; Z87.891 Personal history of nicotine dependence
CPT/HCPCS: 36415; 71045; 80053; 83690; 84484; 85025; 93005; 99285

== ENCOUNTER 2017-10-17 20:30 | Emergency (ER) | payer SELFPAY ==
[~2017-10-17] VITALS: Ht 167.6 cm; Wt 102.0 kg
[~2017-10-17 20:30] MED LIST changes: +AMLO10TA2 PO; +LOSA1TAB25 PO; +NITROGLYCERIN; +antibiotic
[2017-10-17] MEDS ORDERED: LISI2.5T PO (20:50)
[2017-10-17] MEDS ORDERED: HYDR12.53 PO (20:50)
[2017-10-17] MEDS ORDERED: MORPHINE SULFATE 4 MG/ML, 1ML ONE (21:08)
[2017-10-17] MEDS ORDERED: SODIUM CHLORIDE FLUSH 10ML SYR IVF ONE (21:30)
[2017-10-17] MEDS ORDERED: MORPHINE SULFATE 4 MG/ML, 1ML IVPush PRN (21:30)
[2017-10-17 21:37] LABS: BASOPHILS # (AUTO) 0.04 x10^3/uL (0-0.1); BASOPHILS % (AUTO) 1 % (0-1); EOSINOPHILS # (AUTO) 0.02 x10^3/uL (0-0.4); EOSINOPHILS % (AUTO) 0 % (1-7); LYMPHOCYTES # (AUTO) 2.16 x10^3/uL (1-3.4); LYMPHOCYTES % (AUTO) 26 % (22-44); MD NO; MEAN CORPUSCULAR HEMOGLOBIN 30.2 pg (27.5-34.5); MEAN CORPUSCULAR HGB CONC 34.3 g/dL (33.2-36.2); MEAN CORPUSCULAR VOLUME 88.1 fL (81-97); MEAN PLATELET VOLUME 9.6 fL (7.4-10.4); MONOCYTES # (AUTO) 0.67 x10^3/uL (0.2-0.8); MONOCYTES % (AUTO) 8 % (2-9); NEUTROPHILS # (AUTO) 5.35 x10^3/uL (1.8-6.8); NEUTROPHILS % (AUTO) 65 % (42-75); PLATELET COUNT 163 x10^3/uL (130-400); RED CELL DISTRIBUTION WIDTH 13.9 % (9.4-14.8)
[2017-10-17 21:46] LABS: ALBUMIN 3.9 g/dL (3.4-5.0); ANION GAP 13 mmol/L (5-15); CALCIUM 9.2 mg/dL (8.5-10.1); CHLORIDE 107 mmol/L (98-107)
[2017-10-17 21:48] VITALS: BP 142/70
[2017-10-17 21:51] LABS: ALANINE AMINOTRANSFERASE 106 U/L (12-78); ALKALINE PHOSPHATASE 89 U/L (45-117); BILIRUBIN,TOTAL 0.6 mg/dL (0.2-1.0); CREATININE 0.96 mg/dL (0.7-1.3); TROPONIN I < 0.015 ng/mL (0.000-0.045)
== END 2017-10-17 22:38 | disposition home or self-care (01) ==
LOC: ED 21:22
DX: R07.2 Precordial pain (principal); I25.2 Old myocardial infarction; I25.10 Atherosclerotic heart disease of native coronary artery without angina pectoris
CPT/HCPCS: 36415; 71045; 80053; 83880; 84484; 85025; 93005; 96374

== ENCOUNTER 2017-11-06 12:33 | Emergency (ER) | payer SELFPAY ==
[~2017-11-06] VITALS: Ht 167.6 cm; Wt 93.0 kg
[~2017-11-06 12:33] MED LIST changes: +LISI2.5T PO
[2017-11-06 12:42] VITALS: BP 142/79
[2017-11-06] MEDS ORDERED: METO25TA35 PO (12:45)
[2017-11-06] MEDS ORDERED: MORPHINE SULFATE 4 MG/ML, 1ML IVPush PRN (13:00)
[2017-11-06] MEDS ORDERED: SODIUM CHLORIDE FLUSH 10ML SYR IVF ONE (13:00)
[2017-11-06] MEDS ORDERED: ONDANSETRON ODT 4 MG PO ONE (13:00)
[2017-11-06] MEDS ORDERED: MORPHINE SULFATE 4 MG/ML, 1ML ONE (13:04)
[2017-11-06] MEDS ORDERED: ONDANSETRON ODT 4 MG ONE (13:04)
[2017-11-06 13:14] LABS: BASOPHILS # (AUTO) 0.03 x10^3/uL (0-0.1); BASOPHILS % (AUTO) 1 % (0-1); EOSINOPHILS # (AUTO) 0.03 x10^3/uL (0-0.4); EOSINOPHILS % (AUTO) 1 % (1-7); LYMPHOCYTES # (AUTO) 1.43 x10^3/uL (1-3.4); LYMPHOCYTES % (AUTO) 24 % (22-44); MD NO; MEAN CORPUSCULAR HEMOGLOBIN 30.5 pg (27.5-34.5); MEAN CORPUSCULAR HGB CONC 34.6 g/dL (33.2-36.2); MEAN CORPUSCULAR VOLUME 88.3 fL (81-97); MEAN PLATELET VOLUME 9.2 fL (7.4-10.4); MONOCYTES # (AUTO) 0.39 x10^3/uL (0.2-0.8); MONOCYTES % (AUTO) 7 % (2-9); NEUTROPHILS # (AUTO) 4.14 x10^3/uL (1.8-6.8); NEUTROPHILS % (AUTO) 69 % (42-75); PLATELET COUNT 148 x10^3/uL (130-400); RED BLOOD COUNT 5.15 x10^6/uL (4.38-5.82); RED CELL DISTRIBUTION WIDTH 13.5 % (9.4-14.8)
[2017-11-06 13:24] LABS: ALANINE AMINOTRANSFERASE 69 U/L (12-78); ALBUMIN 3.8 g/dL (3.4-5.0); ANION GAP 10 mmol/L (5-15); CALCIUM 8.9 mg/dL (8.5-10.1); CHLORIDE 106 mmol/L (98-107); CREATININE 0.95 mg/dL (0.7-1.3)
[2017-11-06 13:29] LABS: ALKALINE PHOSPHATASE 97 U/L (45-117); BILIRUBIN,TOTAL 0.4 mg/dL (0.2-1.0); TROPONIN I < 0.015 ng/mL (0.000-0.045)
== END 2017-11-06 15:04 | disposition home or self-care (01) ==
LOC: ED 13:54
DX: R07.89 Other chest pain (principal); K21.9 Gastro-esophageal reflux disease without esophagitis; I25.10 Atherosclerotic heart disease of native coronary artery without angina pectoris; E78.5 Hyperlipidemia, unspecified; E11.65 Type 2 diabetes mellitus with hyperglycemia; I10 Essential (primary) hypertension
CPT/HCPCS: 36415; 71045; 80053; 83880; 84484; 85025; 93005; 96374; 99285; Q0162

== ENCOUNTER 2017-11-09 14:16 | Emergency (ER) | payer MEDICAID ==
[~2017-11-09] VITALS: Ht 172.7 cm; Wt 100.0 kg
[~2017-11-09 14:16] MED LIST changes: +METO25TA35 PO
[2017-11-09] MEDS ORDERED: KETOROLAC 30 MG/1 ML ONE (14:54)
[2017-11-09] MEDS ORDERED: MORPHINE SULFATE 4 MG/ML, 1ML ONE (14:55)
[2017-11-09] MEDS ORDERED: MAALOX/HYOSCYAMINE/LIDOCAINE 45 ML BTL ONE (14:55)
[2017-11-09] MEDS ORDERED: MORPHINE SULFATE 4 MG/ML, 1ML IVPush PRN (15:00)
[2017-11-09] MEDS ORDERED: KETOROLAC 30 MG/1 ML IVPush ONE (15:00)
[2017-11-09] MEDS ORDERED: MAALOX/HYOSCYAMINE/LIDOCAINE 45 ML BTL PO ONE (15:00)
[2017-11-09 15:23] LABS: BASOPHILS # (AUTO) 0.04 x10^3/uL (0-0.1); BASOPHILS % (AUTO) 1 % (0-1); EOSINOPHILS # (AUTO) 0.01 x10^3/uL (0-0.4); EOSINOPHILS % (AUTO) 0 % (1-7); LYMPHOCYTES # (AUTO) 1.45 x10^3/uL (1-3.4); LYMPHOCYTES % (AUTO) 20 % (22-44); MD NO; MEAN CORPUSCULAR HEMOGLOBIN 30.6 pg (27.5-34.5); MEAN CORPUSCULAR HGB CONC 34.4 g/dL (33.2-36.2); MEAN CORPUSCULAR VOLUME 88.8 fL (81-97); MEAN PLATELET VOLUME 9.6 fL (7.4-10.4); MONOCYTES # (AUTO) 0.57 x10^3/uL (0.2-0.8); MONOCYTES % (AUTO) 8 % (2-9); NEUTROPHILS # (AUTO) 5.26 x10^3/uL (1.8-6.8); NEUTROPHILS % (AUTO) 72 % (42-75); PLATELET COUNT 153 x10^3/uL (130-400); RED CELL DISTRIBUTION WIDTH 14.4 % (9.4-14.8)
[2017-11-09 15:34] LABS: ANION GAP 11 mmol/L (5-15); CALCIUM 8.9 mg/dL (8.5-10.1); CHLORIDE 109 mmol/L (98-107)
[2017-11-09 15:38] LABS: ALANINE AMINOTRANSFERASE 70 U/L (12-78); ALBUMIN 3.6 g/dL (3.4-5.0); CREATININE 0.95 mg/dL (0.7-1.3); TROPONIN I < 0.015 ng/mL (0.000-0.045)
[2017-11-09 15:40] LABS: ALKALINE PHOSPHATASE 85 U/L (45-117); BILIRUBIN,TOTAL 0.4 mg/dL (0.2-1.0); TOTAL PROTEIN 6.6 g/dL (6.4-8.2)
[2017-11-09 15:55] LABS: D-DIMER < 0.19 ug/mlFEU (0.00-0.52); INTERNATIONAL NORMALIZED RATIO 1.02 (0.93-1.1); PARTIAL THROMBOPLASTIN TIME 25 Seconds (25-31); PROTHROMBIN TIME 10.6 Seconds (9.6-11.5)
[2017-11-09] MEDS ORDERED: HYDROmorphone 2 MG/ML, 1ML ONE (16:32)
[2017-11-09] MEDS ORDERED: HYDROmorphone 1 MG/ML, 1ML IV ONE (17:00)
[2017-11-09 17:09] VITALS: BP 158/75
== END 2017-11-09 17:12 | disposition home or self-care (01) ==
LOC: ED 17:06
DX: M94.0 Chondrocostal junction syndrome [Tietze] (principal); E11.9 Type 2 diabetes mellitus without complications; E78.5 Hyperlipidemia, unspecified; I10 Essential (primary) hypertension; I25.10 Atherosclerotic heart disease of native coronary artery without angina pectoris; K21.9 Gastro-esophageal reflux disease without esophagitis; Z90.49 Acquired absence of other specified parts of digestive tract; Z87.891 Personal history of nicotine dependence
CPT/HCPCS: 36415; 71045; 80053; 83880; 84484; 85025; 85379; 85610; 85730; 93005; 96374; 96375; 99285; J1170; J1885

== ENCOUNTER 2017-12-23 12:21 | Emergency (ER) | payer SELFPAY ==
[~2017-12-23] VITALS: Ht 170.2 cm; Wt 102.1 kg
[2017-12-23 13:22] LABS: BASOPHILS # (AUTO) 0.04 x10^3/uL (0-0.1); BASOPHILS % (AUTO) 1 % (0-1); EOSINOPHILS # (AUTO) 0.02 x10^3/uL (0-0.4); EOSINOPHILS % (AUTO) 0 % (1-7); LYMPHOCYTES # (AUTO) 1.26 x10^3/uL (1-3.4); LYMPHOCYTES % (AUTO) 24 % (22-44); MD NO; MEAN CORPUSCULAR HEMOGLOBIN 29.9 pg (27.5-34.5); MEAN CORPUSCULAR HGB CONC 34.3 g/dL (33.2-36.2); MEAN CORPUSCULAR VOLUME 87.1 fL (81-97); MEAN PLATELET VOLUME 9.5 fL (7.4-10.4); MONOCYTES # (AUTO) 0.42 x10^3/uL (0.2-0.8); MONOCYTES % (AUTO) 8 % (2-9); NEUTROPHILS # (AUTO) 3.53 x10^3/uL (1.8-6.8); NEUTROPHILS % (AUTO) 67 % (42-75); PLATELET COUNT 123 x10^3/uL (130-400); RED BLOOD COUNT 5.23 x10^6/uL (4.38-5.82); RED CELL DISTRIBUTION WIDTH 13.5 % (9.4-14.8)
[2017-12-23] MEDS ORDERED: DIPHENHYDRAMINE 50 MG/ML, 1ML ONE (13:22)
[2017-12-23] MEDS ORDERED: MORPHINE SULFATE 4 MG/ML, 1ML ONE ×2 (13:23→14:57)
[2017-12-23] MEDS ORDERED: SODIUM CHLORIDE FLUSH 10ML SYR IVF ONE (13:30)
[2017-12-23] MEDS ORDERED: DIPHENHYDRAMINE 50 MG/ML, 1ML IVPush ONE (13:30)
[2017-12-23] MEDS ORDERED: SODIUM CHLORIDE 0.9% 1,000ML IVBOLUS ONE (13:30)
[2017-12-23 13:33] LABS: ALANINE AMINOTRANSFERASE 54 U/L (12-78); ALBUMIN 3.8 g/dL (3.4-5.0); ANION GAP 10 mmol/L (5-15); CALCIUM 8.7 mg/dL (8.5-10.1); CHLORIDE 102 mmol/L (98-107)
[2017-12-23] MEDS: MORPHINE SULFATE 4 MG/ML, 1ML IVPush PRN ×2 (13:34→15:00)
[2017-12-23 13:35] LABS: ALKALINE PHOSPHATASE 102 U/L (45-117); BILIRUBIN,TOTAL 0.5 mg/dL (0.2-1.0); TOTAL PROTEIN 6.8 g/dL (6.4-8.2)
[2017-12-23 13:59] LABS: MICROSCOPIC NOT IND
[2017-12-23 14:06] LABS: CULTURE INDICATED? NO
[2017-12-23] MEDS ORDERED: OMNIPAQUE 350 MG/ML, 100ML BOTTLE ONE (14:13)
[2017-12-23 15:50] VITALS: BP 150/77
== END 2017-12-23 16:00 | disposition home or self-care (01) ==
LOC: ED 13:49
DX: R10.32 Left lower quadrant pain (principal); I10 Essential (primary) hypertension; E78.5 Hyperlipidemia, unspecified; I25.119 Atherosclerotic heart disease of native coronary artery with unspecified angina pectoris; E11.65 Type 2 diabetes mellitus with hyperglycemia; F17.200 Nicotine dependence, unspecified, uncomplicated
CPT/HCPCS: 36415; 74177; 80053; 81003; 82962; 83690; 85025; 93005; 96361; 96374; 96375; 96376; 99285; J1200; J7030; Q9967

== ENCOUNTER 2018-01-03 19:36 | Emergency (ER) | payer SELFPAY ==
[~2018-01-03] VITALS: Ht 170.2 cm; Wt 98.9 kg
[2018-01-03 20:29] LABS: BASOPHILS # (AUTO) 0.06 x10^3/uL (0-0.1); BASOPHILS % (AUTO) 1 % (0-1); EOSINOPHILS # (AUTO) 0.04 x10^3/uL (0-0.4); EOSINOPHILS % (AUTO) 0 % (1-7); LYMPHOCYTES # (AUTO) 1.95 x10^3/uL (1-3.4); LYMPHOCYTES % (AUTO) 23 % (22-44); MD NO; MEAN CORPUSCULAR HEMOGLOBIN 30.1 pg (27.5-34.5); MEAN CORPUSCULAR HGB CONC 34.1 g/dL (33.2-36.2); MEAN CORPUSCULAR VOLUME 88.2 fL (81-97); MEAN PLATELET VOLUME 9.4 fL (7.4-10.4); MONOCYTES % (AUTO) 9 % (2-9); NEUTROPHILS # (AUTO) 5.83 x10^3/uL (1.8-6.8); NEUTROPHILS % (AUTO) 67 % (42-75); PLATELET COUNT 166 x10^3/uL (130-400); RED BLOOD COUNT 5.56 x10^6/uL (4.38-5.82); RED CELL DISTRIBUTION WIDTH 14.2 % (9.4-14.8)
[2018-01-03 20:39] LABS: ALANINE AMINOTRANSFERASE 52 U/L (12-78); ALBUMIN 4.1 g/dL (3.4-5.0); ANION GAP 12 mmol/L (5-15); CALCIUM 9.3 mg/dL (8.5-10.1); CHLORIDE 109 mmol/L (98-107); CREATININE 1.15 mg/dL (0.7-1.3)
[2018-01-03 20:41] LABS: ALKALINE PHOSPHATASE 125 U/L (45-117); BILIRUBIN,TOTAL 0.4 mg/dL (0.2-1.0); TOTAL PROTEIN 7.7 g/dL (6.4-8.2)
[2018-01-03] MEDS ORDERED: MORPHINE SULFATE 4 MG/ML, 1ML IVPush ONE ×2 (21:00→22:30)
[2018-01-03] MEDS ORDERED: ONDANSETRON ODT 4 MG ONE (21:01)
[2018-01-03] MEDS ORDERED: MORPHINE SULFATE 4 MG/ML, 1ML ONE (21:01)
[2018-01-03] MEDS ORDERED: ONDANSETRON ODT 4 MG PO ONE (21:30)
[2018-01-03 21:34] LABS: HCT (SEDRATE) 49.1 % (39.2-51.8)
[2018-01-03] MEDS ORDERED: OMNIPAQUE 350 MG/ML, 100ML BOTTLE ONE (21:37)
[2018-01-03 21:56] VITALS: BP 124/64
== END 2018-01-03 22:29 | disposition home or self-care (01) ==
LOC: ED 22:15
DX: G43.C0 Periodic headache syndromes in child or adult, not intractable (principal); E11.65 Type 2 diabetes mellitus with hyperglycemia; I10 Essential (primary) hypertension; I25.10 Atherosclerotic heart disease of native coronary artery without angina pectoris; K21.9 Gastro-esophageal reflux disease without esophagitis
CPT/HCPCS: 36415; 70450; 70496; 70498; 80053; 85025; 85651; 93005; 96374; 99285; Q0162; Q9967

== ENCOUNTER 2018-01-04 18:34 | Emergency (ER) | payer OTHER ==
[~2018-01-04] VITALS: Ht 170.2 cm; Wt 99.6 kg
[2018-01-04] MEDS ORDERED: ONDANSETRON ODT 4 MG ONE (19:47)
[2018-01-04] MEDS ORDERED: GABAPENTIN 300 MG CAPSULE ONE (19:47)
[2018-01-04] MEDS ORDERED: GABAPENTIN 300 MG CAPSULE PO ONE (20:00)
[2018-01-04] MEDS ORDERED: ONDANSETRON ODT 4 MG PO ONE (20:00)
[2018-01-04] MEDS ORDERED: SODIUM CHLORIDE 0.9% 1,000ML IVBOLUS ONE (20:00)
[2018-01-04] MEDS ORDERED: SODIUM CHLORIDE FLUSH 10ML SYR IVF ONE (20:00)
[2018-01-04] MEDS ORDERED: CAPSAICIN CRM 0.075%, 60GM TP ONE (20:00)
[2018-01-04 20:07] LABS: BASOPHILS # (AUTO) 0.08 x10^3/uL (0-0.1); BASOPHILS % (AUTO) 1 % (0-1); EOSINOPHILS # (AUTO) 0.04 x10^3/uL (0-0.4); EOSINOPHILS % (AUTO) 1 % (1-7); LYMPHOCYTES # (AUTO) 1.68 x10^3/uL (1-3.4); LYMPHOCYTES % (AUTO) 23 % (22-44); MD NO; MEAN CORPUSCULAR HEMOGLOBIN 30.3 pg (27.5-34.5); MEAN CORPUSCULAR HGB CONC 34.6 g/dL (33.2-36.2); MEAN CORPUSCULAR VOLUME 87.6 fL (81-97); MEAN PLATELET VOLUME 9.5 fL (7.4-10.4); MONOCYTES # (AUTO) 0.64 x10^3/uL (0.2-0.8); MONOCYTES % (AUTO) 9 % (2-9); NEUTROPHILS # (AUTO) 4.77 x10^3/uL (1.8-6.8); NEUTROPHILS % (AUTO) 66 % (42-75); PLATELET COUNT 162 x10^3/uL (130-400); RED BLOOD COUNT 5.36 x10^6/uL (4.38-5.82); RED CELL DISTRIBUTION WIDTH 13.4 % (9.4-14.8)
[2018-01-04 20:15] LABS: ALBUMIN 3.9 g/dL (3.4-5.0); ANION GAP 8 mmol/L (5-15); CALCIUM 9.3 mg/dL (8.5-10.1); CHLORIDE 110 mmol/L (98-107); CREATININE 1.41 mg/dL (0.7-1.3)
[2018-01-04] MEDS ORDERED: CAPSAICIN CRM 0.025%, 60GM TP ONE (21:00)
[2018-01-04] MEDS ORDERED: PROCHLORPERAZINE 5 MG/ML, 2ML ONE (21:02)
[2018-01-04] MEDS ORDERED: DIPHENHYDRAMINE 50 MG/ML, 1ML ONE (21:02)
[2018-01-04] MEDS ORDERED: DIPHENHYDRAMINE 50 MG/ML, 1ML IVPush ONE (21:30)
[2018-01-04] MEDS ORDERED: PROCHLORPERAZINE 5 MG/ML, 2ML IVPush ONE (21:30)
[2018-01-04 22:25] VITALS: BP 158/76
== END 2018-01-04 22:27 | disposition home or self-care (01) ==
LOC: ED 19:22
DX: R51 Headache (principal); R11.2 Nausea with vomiting, unspecified; E11.9 Type 2 diabetes mellitus without complications; I10 Essential (primary) hypertension; E78.5 Hyperlipidemia, unspecified
CPT/HCPCS: 36415; 80048; 82040; 85025; 96374; 96375; 99284; J0780; J1200; J7030; Q0162

== ENCOUNTER 2018-01-19 20:32 | Emergency (ER) | payer SELFPAY ==
[~2018-01-19] VITALS: Ht 170.2 cm; Wt 101.0 kg
[2018-01-19] MEDS ORDERED: MECLIZINE CHEWABLE 25 MG TAB ONE (21:29)
[2018-01-19] MEDS ORDERED: LORazepam 1MG TABLET ONE (21:29)
[2018-01-19] MEDS ORDERED: HYDROcodone/APAP 5/325 TABLET ONE (21:29)
[2018-01-19] MEDS ORDERED: MECLIZINE CHEWABLE 25 MG TAB PO ONE (21:30)
[2018-01-19] MEDS ORDERED: HYDROcodone/APAP 5/325 TABLET PO ONE (21:30)
[2018-01-19] MEDS ORDERED: LIDOCAINE 1%, 10ML INFIL ONE (21:30)
[2018-01-19] MEDS ORDERED: LORazepam 1MG TABLET PO ONE (21:30)
[2018-01-19 21:35] LABS: BASOPHILS # (AUTO) 0.03 x10^3/uL (0-0.1); BASOPHILS % (AUTO) 1 % (0-1); EOSINOPHILS # (AUTO) 0.04 x10^3/uL (0-0.4); EOSINOPHILS % (AUTO) 1 % (1-7); LYMPHOCYTES # (AUTO) 1.94 x10^3/uL (1-3.4); LYMPHOCYTES % (AUTO) 31 % (22-44); MD NO; MEAN CORPUSCULAR HEMOGLOBIN 30.5 pg (27.5-34.5); MEAN CORPUSCULAR HGB CONC 34.8 g/dL (33.2-36.2); MEAN CORPUSCULAR VOLUME 87.7 fL (81-97); MEAN PLATELET VOLUME 8.9 fL (7.4-10.4); MONOCYTES # (AUTO) 0.62 x10^3/uL (0.2-0.8); MONOCYTES % (AUTO) 10 % (2-9); NEUTROPHILS % (AUTO) 58 % (42-75); PLATELET COUNT 129 x10^3/uL (130-400); RED BLOOD COUNT 5.42 x10^6/uL (4.38-5.82); RED CELL DISTRIBUTION WIDTH 13.4 % (9.4-14.8)
[2018-01-19] MEDS ORDERED: LIDOCAINE-MPF 1%, 2ML ONE (21:37)
[2018-01-19 21:42] LABS: ANION GAP 7 mmol/L (5-15); CALCIUM 8.9 mg/dL (8.5-10.1); CHLORIDE 103 mmol/L (98-107)
[2018-01-19 21:46] LABS: INTERNATIONAL NORMALIZED RATIO 0.97 (0.93-1.1)
[2018-01-19 22:42] LABS: GLUCOSE, CSF 148 mg/dL (40-80); TOTAL PROTEIN,CSF 82 mg/dL (15-45)
[2018-01-19 23:05] VITALS: BP 137/89
== END 2018-01-19 23:05 ==
LOC: ED 21:51
DX: G43.C1 Periodic headache syndromes in child or adult, intractable (principal); E11.65 Type 2 diabetes mellitus with hyperglycemia; I10 Essential (primary) hypertension; K21.9 Gastro-esophageal reflux disease without esophagitis; E78.5 Hyperlipidemia, unspecified; I25.10 Atherosclerotic heart disease of native coronary artery without angina pectoris
CPT/HCPCS: 36415; 62270; 70450; 80048; 82040; 82945; 84157; 85025; 85610; 85730; 87070; 87205; 87252; 89051; 93005; 99285

== ENCOUNTER 2018-01-29 14:23 | Observation (INO) | payer MEDICAID, OTHER ==
[~2018-01-29] VITALS: Ht 170.2 cm; Wt 99.5 kg
[2018-01-29] MEDS ORDERED: METOCLOPRAMIDE 5 MG/ML, 2ML IVPush ONE (15:00)
[2018-01-29] MEDS ORDERED: MORPHINE SULFATE 4 MG/ML, 1ML IVPush PRN (15:00)
[2018-01-29] MEDS ORDERED: SODIUM CHLORIDE FLUSH 10ML SYR IVF ONE (15:00)
[2018-01-29] MEDS ORDERED: DIPHENHYDRAMINE 50 MG/ML, 1ML IVPush ONE (15:00)
[2018-01-29 15:16] LABS: BASOPHILS # (AUTO) 0.04 x10^3/uL (0-0.1); BASOPHILS % (AUTO) 1 % (0-1); EOSINOPHILS # (AUTO) 0.02 x10^3/uL (0-0.4); EOSINOPHILS % (AUTO) 0 % (1-7); LYMPHOCYTES # (AUTO) 1.36 x10^3/uL (1-3.4); LYMPHOCYTES % (AUTO) 22 % (22-44); MD NO; MEAN CORPUSCULAR HEMOGLOBIN 29.9 pg (27.5-34.5); MEAN CORPUSCULAR HGB CONC 34.5 g/dL (33.2-36.2); MEAN CORPUSCULAR VOLUME 86.6 fL (81-97); MEAN PLATELET VOLUME 9.8 fL (7.4-10.4); MONOCYTES # (AUTO) 0.43 x10^3/uL (0.2-0.8); MONOCYTES % (AUTO) 7 % (2-9); NEUTROPHILS # (AUTO) 4.37 x10^3/uL (1.8-6.8); NEUTROPHILS % (AUTO) 70 % (42-75); PLATELET COUNT 125 x10^3/uL (130-400); RED BLOOD COUNT 5.37 x10^6/uL (4.38-5.82); RED CELL DISTRIBUTION WIDTH 13.1 % (9.4-14.8)
[2018-01-29 15:17] LABS: HCT (SEDRATE) 46.4 % (39.2-51.8)
[2018-01-29] MEDS ORDERED: DIPHENHYDRAMINE 50 MG/ML, 1ML ONE (15:19)
[2018-01-29] MEDS ORDERED: METOCLOPRAMIDE 5 MG/ML, 2ML ONE (15:19)
[2018-01-29] MEDS ORDERED: MORPHINE SULFATE 4 MG/ML, 1ML ONE (15:20)
[2018-01-29 15:27] LABS: ALANINE AMINOTRANSFERASE 55 U/L (12-78); ALBUMIN 3.8 g/dL (3.4-5.0); ANION GAP 11 mmol/L (5-15); CALCIUM 8.5 mg/dL (8.5-10.1); CHLORIDE 104 mmol/L (98-107); CREATININE 0.82 mg/dL (0.7-1.3)
[2018-01-29 15:32] LABS: ALKALINE PHOSPHATASE 101 U/L (45-117); BILIRUBIN,TOTAL 0.5 mg/dL (0.2-1.0); TOTAL PROTEIN 7.2 g/dL (6.4-8.2); TROPONIN I < 0.015 ng/mL (0.000-0.045)
[2018-01-29] MEDS ORDERED: ONDANSETRON ODT 4 MG PO PRN (18:30)
[2018-01-29] MEDS ORDERED: LABETALOL 5MG/ML, 20ML IVPush PRN (18:30)
[2018-01-29] MEDS ORDERED: ASA/APAP/ CAFFEINE TABLET PO PRN (18:30)
[2018-01-29] MEDS ORDERED: ACETAMINOPHEN 325 MG TABLET PO PRN (18:30)
[2018-01-29] MEDS ORDERED: morphine SULFATE 10 MG/ML, 1ML IVPush PRN (18:30)
[2018-01-29] MEDS ORDERED: NITROGLYCERIN 0.4 MG/SPRAY SL PRN (18:30)
[2018-01-29] MEDS ORDERED: NITROGLYCERIN 0.4 MG BOTTLE (25 TABS) SL PRN (18:30)
[2018-01-29] MEDS ORDERED: hydrALAzine 20 MG/ML, 1ML IVPush PRN (18:30)
[2018-01-29] MEDS ORDERED: ONDANSETRON 2MG/ML, 2ML IVPush PRN (18:30)
[2018-01-29 18:41] VITALS: BP 128/69
[2018-01-29 20:52] LABS: TROPONIN I < 0.015 ng/mL (0.000-0.045)
[2018-01-29 20:54] LABS: AMPHETAMINE SCREEN, URINE Negative (Negative); BARBITURATE SCREEN, URINE Negative (Negative); BENZODIAZEPINE SCREEN, URINE Negative (Negative); CANNABINOID SCREEN, URINE Negative (Negative); COCAINE SCREEN, URINE Negative (Negative); METHADONE SCREEN, URINE Negative (Negative); OPIATE SCREEN, URINE Positive (Negative)
[2018-01-29] MEDS ORDERED: OMEPRAZOLE 20 MG CAPSULE.DR PO SCH (21:00)
[2018-01-29 21:56] VITALS: BP 151/69
[2018-01-29] MEDS: HEPARIN 5,000 UNITS/ML, 1ML SQ SCH (21:59)
[2018-01-29] MEDS: HYDROcodone/APAP 5/325 TABLET PO PRN (21:59)
[2018-01-29] MEDS: OMEPRAZOLE 20 MG CAPSULE.DR PO SCH (21:59)
[2018-01-29] MEDS: METOPROLOL TARTRATE 25 MG TABLET PO SCH (21:59)
[2018-01-29] MEDS: INSULIN LISPRO 100 UNITS/ML, PEN SQ-INSULIN SCH (22:39)
[2018-01-30 02:36] VITALS: BP 141/68
[2018-01-30] MEDS: HYDROcodone/APAP 5/325 TABLET PO PRN ×3 (02:39→13:36)
[2018-01-30 02:46] LABS: BASOPHILS # (AUTO) 0.04 x10^3/uL (0-0.1); BASOPHILS % (AUTO) 1 % (0-1); EOSINOPHILS # (AUTO) 0.04 x10^3/uL (0-0.4); EOSINOPHILS % (AUTO) 1 % (1-7); LYMPHOCYTES # (AUTO) 1.97 x10^3/uL (1-3.4); LYMPHOCYTES % (AUTO) 35 % (22-44); MD NO; MEAN CORPUSCULAR HGB CONC 34.6 g/dL (33.2-36.2); MEAN CORPUSCULAR VOLUME 86.7 fL (81-97); MEAN PLATELET VOLUME 9.4 fL (7.4-10.4); MONOCYTES # (AUTO) 0.48 x10^3/uL (0.2-0.8); MONOCYTES % (AUTO) 9 % (2-9); NEUTROPHILS # (AUTO) 3.07 x10^3/uL (1.8-6.8); NEUTROPHILS % (AUTO) 55 % (42-75); PLATELET COUNT 109 x10^3/uL (130-400); RED BLOOD COUNT 5.05 x10^6/uL (4.38-5.82); RED CELL DISTRIBUTION WIDTH 13.4 % (9.4-14.8)
[2018-01-30 03:01] LABS: ANION GAP 6 mmol/L (5-15); CALCIUM 8.3 mg/dL (8.5-10.1); CHLORIDE 110 mmol/L (98-107); CHOLESTEROL, TOTAL 174 mg/dL (140-239); CREATININE 0.93 mg/dL (0.7-1.3)
[2018-01-30 03:04] LABS: TROPONIN I < 0.015 ng/mL (0.000-0.045)
[2018-01-30 03:06] LABS: HEMOGLOBIN A1C 10.1 % (4.2-6.3)
[2018-01-30 03:11] LABS: CHOL/HDL RATIO 5.8; HDL CHOL % 17 % (26-37); HDL CHOLESTEROL (DIRECT) 30 mg/dL (40-60); THYROID STIMULATING HORMONE 0.637 mIU/L (0.358-3.740); TRIGLYCERIDES 421 mg/dL (50-200)
[2018-01-30] MEDS: HEPARIN 5,000 UNITS/ML, 1ML SQ SCH ×2 (05:50→13:35)
[2018-01-30 06:35] VITALS: BP 132/70
[2018-01-30] MEDS: OMEPRAZOLE 20 MG CAPSULE.DR PO SCH ×2 (08:11→17:07)
[2018-01-30] MEDS: INSULIN LISPRO 100 UNITS/ML, PEN SQ-INSULIN SCH ×4 (08:14→17:07)
[2018-01-30] MEDS ORDERED: REGADENOSON 0.4 MG/5 ML SYRINGE ONE (08:47)
[2018-01-30] MEDS ORDERED: INSULIN GLARGINE 100 UNITS/ML, PEN SQ-INSULIN SCH (09:00)
[2018-01-30] MEDS ORDERED: LOSARTAN 50MG TABLET PO SCH (09:00)
[2018-01-30] MEDS ORDERED: AMLODIPINE 5 MG TABLET PO SCH (09:00)
[2018-01-30] MEDS ORDERED: HYDROCHLOROTHIAZIDE 12.5 MG CAPSULE PO SCH (09:00)
[2018-01-30] MEDS: METOPROLOL TARTRATE 25 MG TABLET PO SCH (09:00)
[2018-01-30 12:34] VITALS: BP 130/78
[2018-01-30] MEDS ORDERED: MAALOX/HYOSCYAMINE/LIDOCAINE 45 ML BTL PO ONE (15:45)
[2018-01-30] MEDS ORDERED: INSU100I11 SQ-INSULIN (16:02)
[2018-01-30] MEDS ORDERED: ONDA4TAB13 PO (16:02)
[2018-01-30] MEDS ORDERED: NITR0.4T SL (16:02)
[2018-01-30] MEDS ORDERED: SUCR1TAB33 PO (16:02)
[2018-01-30] MEDS ORDERED: INSU100V8 SQ (16:02)
[2018-01-30] MEDS ORDERED: ATOR40TA78 PO (16:02)
[2018-01-30] MEDS ORDERED: OMEP-110 PO (16:02)
[2018-01-30] MEDS ORDERED: METO25TA35 PO (16:02)
[2018-01-30] MEDS ORDERED: GABA300C10 PO (17:52)
[2018-01-30] MEDS ORDERED: METOPROLOL TARTRATE 25 MG TABLET PO SCH (18:00)
[2018-01-30] MEDS ORDERED: ATORVASTATIN 40 MG TABLET PO SCH (21:00)
[2018-01-31] MEDS ORDERED: INSULIN GLARGINE 100 UNITS/ML, PEN SQ-INSULIN SCH (09:00)
== END 2018-01-30 18:56 | disposition home or self-care (01) ==
LOC: ED 15:25 → 5SO 16:13 → INTOOBSV 16:13
PROVIDERS: ADMIT Internal Medicine; ATTEND Internal Medicine
DX: R07.89 Other chest pain (principal); I25.10 Atherosclerotic heart disease of native coronary artery without angina pectoris; I11.9 Hypertensive heart disease without heart failure; E11.65 Type 2 diabetes mellitus with hyperglycemia; E78.5 Hyperlipidemia, unspecified; E66.9 Obesity, unspecified; G43.909 Migraine, unspecified, not intractable, without status migrainosus; F17.200 Nicotine dependence, unspecified, uncomplicated
CPT/HCPCS: 36415; 71045; 78452; 80048; 80053; 80061; 80307; 82962; 83036; 83690; 83880; 84443; 84484; 85025; 85610; 85651; 85730; 93005; 93017; 93306; 96372; 99285; A9502; G0378; J1644; J1815; J2785

== ENCOUNTER 2018-06-24 17:52 | Emergency (ER) | payer MEDICAID, OTHER ==
[~2018-06-24] VITALS: Ht 167.6 cm; Wt 106.0 kg
[~2018-06-24 17:52] MED LIST changes: +AMLO-150 PO; -AMLO10TA2 PO; +AMLO10TA6 PO; -AMLO5TAB2 PO; +ATOR40TA78 PO; +GABA300C10 PO; +HYDR-3622 PO; +HYDR-3652 PO; -HYDR-879 PO; -HYDR-883 PO; +HYDR12.517 PO; -HYDR12.53 PO; -HYDR12.58 PO; +HYDROCHLOROTH12.5 MG PO; +INSU100I11 SQ-INSULIN; +NITR0.4T SL; +ONDA4TAB13 PO; +SUCR1TAB33 PO
[2018-06-24] MEDS ORDERED: SODIUM CHLORIDE FLUSH 10ML SYR IVF ONE (18:30)
--- NOTE | 2018-06-24 18:34 | NUR ---
IV ESTABLISHED, LABS DRAWN AND SENT TO LAB
[2018-06-24 18:42] LABS: BASOPHILS # (AUTO) 0.06 x10^3/uL (0-0.1); BASOPHILS % (AUTO) 1 % (0-1); EOSINOPHILS # (AUTO) 0.07 x10^3/uL (0-0.4); EOSINOPHILS % (AUTO) 1 % (1-7); LYMPHOCYTES # (AUTO) 1.39 x10^3/uL (1-3.4); LYMPHOCYTES % (AUTO) 21 % (22-44); MD NO; MEAN CORPUSCULAR HEMOGLOBIN 29.7 pg (27.5-34.5); MEAN CORPUSCULAR HGB CONC 34.4 g/dL (33.2-36.2); MEAN CORPUSCULAR VOLUME 86.3 fL (81-97); MEAN PLATELET VOLUME 9.4 fL (7.4-10.4); MONOCYTES # (AUTO) 0.69 x10^3/uL (0.2-0.8); MONOCYTES % (AUTO) 10 % (2-9); NEUTROPHILS # (AUTO) 4.54 x10^3/uL (1.8-6.8); NEUTROPHILS % (AUTO) 67 % (42-75); PLATELET COUNT 137 x10^3/uL (130-400); RED CELL DISTRIBUTION WIDTH 14.9 % (9.4-14.8)
[2018-06-24 18:50] LABS: ALBUMIN 3.9 g/dL (3.4-5.0); ANION GAP 7 mmol/L (5-15); CALCIUM 8.9 mg/dL (8.5-10.1); CHLORIDE 105 mmol/L (98-107)
[2018-06-24] MEDS ORDERED: OMNIPAQUE 350 MG/ML, 75ML BOTTLE ONE (19:05)
[2018-06-24] MEDS ORDERED: HYDROmorphone 2 MG/ML, 1ML IVPush ONE (20:00)
[2018-06-24] MEDS ORDERED: HYDROmorphone 2 MG/ML, 1ML ONE (20:00)
[2018-06-24 20:07] VITALS: BP 168/78
--- NOTE | 2018-06-24 20:26 | NUR ---
PT REPORTS MILD IMPROVEMENT IN PAIN WITH MEDICATION. SPO2 >90% ON RA. RR WNL. DC EDUCATION PROVIDED, PT DEMONSTRATES UNDERSTANDING. PT AMBULATED STEADILY TO DC WITH RN AND SON. SON TO TRANSPORT PT HOME
== END 2018-06-24 20:28 | disposition home or self-care (01) ==
LOC: ED 18:12
DX: K02.9 Dental caries, unspecified (principal); K04.7 Periapical abscess without sinus; K21.9 Gastro-esophageal reflux disease without esophagitis; I10 Essential (primary) hypertension; I25.10 Atherosclerotic heart disease of native coronary artery without angina pectoris; E11.9 Type 2 diabetes mellitus without complications; Z87.11 Personal history of peptic ulcer disease; Z87.19 Personal history of other diseases of the digestive system; Z90.49 Acquired absence of other specified parts of digestive tract; Z87.891 Personal history of nicotine dependence
CPT/HCPCS: 36415; 70487; 80048; 82040; 85025; 96374; 99284; J1170; Q9967

== ENCOUNTER 2018-10-17 14:08 | Emergency (ER) | payer SELFPAY ==
[~2018-10-17] VITALS: Ht 167.6 cm; Wt 102.9 kg
[~2018-10-17 14:08] MED LIST changes: -AMLO10TA6 PO; +AMLO10TA8 PO
[2018-10-17 14:11] VITALS: BP 155/97
[2018-10-17] MEDS ORDERED: ACETAMINOPHEN 500 MG TABLET PO ONE (14:30)
[2018-10-17] MEDS ORDERED: ASPIRIN 81 MG TABLET CHEW PO ONE (14:30)
[2018-10-17] MEDS ORDERED: CYCLOBENZAPRINE 10 MG TABLET PO ONE (14:30)
[2018-10-17] MEDS ORDERED: ACETAMINOPHEN 500 MG TABLET ONE (14:49)
[2018-10-17] MEDS ORDERED: CYCLOBENZAPRINE 10 MG TABLET ONE (14:49)
[2018-10-17] MEDS ORDERED: ASPIRIN 81 MG TABLET CHEW ONE (14:49)
[2018-10-17 14:52] LABS: BASOPHILS # (AUTO) 0.05 x10^3/uL (0-0.1); BASOPHILS % (AUTO) 1 % (0-1); EOSINOPHILS # (AUTO) 0.01 x10^3/uL (0-0.4); EOSINOPHILS % (AUTO) 0 % (1-7); LYMPHOCYTES # (AUTO) 1.24 x10^3/uL (1-3.4); LYMPHOCYTES % (AUTO) 21 % (22-44); MD NO; MEAN CORPUSCULAR HGB CONC 33.5 g/dL (33.2-36.2); MEAN CORPUSCULAR VOLUME 86.8 fL (81-97); MEAN PLATELET VOLUME 9.4 fL (7.4-10.4); MONOCYTES % (AUTO) 7 % (2-9); NEUTROPHILS # (AUTO) 4.33 x10^3/uL (1.8-6.8); NEUTROPHILS % (AUTO) 72 % (42-75); PLATELET COUNT 140 x10^3/uL (130-400); RED BLOOD COUNT 5.38 x10^6/uL (4.38-5.82); RED CELL DISTRIBUTION WIDTH 14.2 % (9.4-14.8)
[2018-10-17 14:56] LABS: ALANINE AMINOTRANSFERASE 49 U/L (12-78); ALBUMIN 4.2 g/dL (3.4-5.0); ANION GAP 11 mmol/L (5-15); CHLORIDE 108 mmol/L (98-107); CREATININE 0.87 mg/dL (0.7-1.3)
[2018-10-17 15:01] LABS: ALKALINE PHOSPHATASE 108 U/L (45-117); BILIRUBIN,TOTAL 0.7 mg/dL (0.2-1.0); TOTAL PROTEIN 7.5 g/dL (6.4-8.2); TROPONIN I < 0.015 ng/mL (0.000-0.045)
[2018-10-17] MEDS ORDERED: ONDANSETRON ODT 4 MG ONE (15:01)
--- NOTE | 2018-10-17 15:17 | NUR ---
VOMITED AFTER TYLENOL/FLEXERIL. ZOFRAN GIVEN PER
[2018-10-17] MEDS ORDERED: ONDANSETRON ODT 4 MG PO ONE (15:30)
[2018-10-17] MEDS ORDERED: SODIUM CHLORIDE 0.9% 1,000ML IVBOLUS ONE (15:30)
== END 2018-10-17 16:30 | disposition home or self-care (01) ==
LOC: ED 16:15
DX: M94.0 Chondrocostal junction syndrome [Tietze] (principal); G89.4 Chronic pain syndrome; R07.2 Precordial pain; E86.0 Dehydration; E11.65 Type 2 diabetes mellitus with hyperglycemia; E78.5 Hyperlipidemia, unspecified; E11.9 Type 2 diabetes mellitus without complications; I10 Essential (primary) hypertension; I25.10 Atherosclerotic heart disease of native coronary artery without angina pectoris; K21.9 Gastro-esophageal reflux disease without esophagitis; Z90.49 Acquired absence of other specified parts of digestive tract; Z88.1 Allergy status to other antibiotic agents; Z88.8 Allergy status to other drugs, medicaments and biological substances
CPT/HCPCS: 36415; 71045; 80053; 83735; 84484; 85025; 93005; 96360; 99284; J7030; Q0162

== ENCOUNTER 2018-11-17 20:27 | Inpatient (IN) | payer MEDICAID, OTHER ==
[~2018-11-17] VITALS: Ht 167.6 cm; Wt 99.0 kg
[~2018-11-17 20:27] MED LIST changes: -NITR0.4T SL; +NITR0.4T41 SL
--- NOTE | 2018-11-17 20:41 | NUR ---
EKG COMPLETED IN TRIAGE, REVIEWED BY EDMD.
[2018-11-17 21:15] LABS: BASOPHILS # (AUTO) 0.05 x10^3/uL (0-0.1); BASOPHILS % (AUTO) 1 % (0-1); EOSINOPHILS # (AUTO) 0.03 x10^3/uL (0-0.4); EOSINOPHILS % (AUTO) 0 % (1-7); LYMPHOCYTES # (AUTO) 1.51 x10^3/uL (1-3.4); LYMPHOCYTES % (AUTO) 18 % (22-44); MD NO; MEAN CORPUSCULAR HEMOGLOBIN 29.4 pg (27.5-34.5); MEAN CORPUSCULAR HGB CONC 33.2 g/dL (33.2-36.2); MEAN CORPUSCULAR VOLUME 88.4 fL (81-97); MEAN PLATELET VOLUME 9.7 fL (7.4-10.4); MONOCYTES # (AUTO) 0.65 x10^3/uL (0.2-0.8); MONOCYTES % (AUTO) 8 % (2-9); NEUTROPHILS # (AUTO) 6.11 x10^3/uL (1.8-6.8); NEUTROPHILS % (AUTO) 73 % (42-75); PLATELET COUNT 130 x10^3/uL (130-400); RED BLOOD COUNT 5.47 x10^6/uL (4.38-5.82); RED CELL DISTRIBUTION WIDTH 14.2 % (9.4-14.8)
[2018-11-17 21:24] LABS: ALBUMIN 4.1 g/dL (3.4-5.0); ANION GAP 8 mmol/L (5-15); CALCIUM 8.9 mg/dL (8.5-10.1); CHLORIDE 105 mmol/L (98-107); CREATININE 1.15 mg/dL (0.7-1.3)
[2018-11-17 21:28] LABS: TROPONIN I < 0.015 ng/mL (0.000-0.045)
[2018-11-17] MEDS ORDERED: MAALOX/HYOSCYAMINE/LIDOCAINE 45 ML BTL ONE (22:16)
--- NOTE | 2018-11-17 22:20 | NUR ---
PT MEDICATED WITH ORDRED GI COCKTAIL. PT ON ALL MONITORS. CALL LIGHT WITHIN REACH. WILL CONTINUE TO MONITOR.
[2018-11-17] MEDS ORDERED: MAALOX/HYOSCYAMINE/LIDOCAINE 45 ML BTL PO ONE (22:30)
[2018-11-17] MEDS ORDERED: ONDANSETRON ODT 4 MG ONE (23:08)
--- NOTE | 2018-11-17 23:14 | NUR ---
PT MEDICATED FOR NAUSEA PT VOMITED UP GI COCKTAIL. ERP ABLE TO COMMUNICATE WITH PT THAT HE WILL BE ADMITTED TO HOSPITAL. ALL PT QUESTIONS ANSWERED.
[2018-11-17 23:28] LABS: BILIRUBIN, DIRECT 0.1 mg/dL (0.1-0.2)
[2018-11-17 23:30] LABS: BILIRUBIN,INDIRECT 0.3 mg/dL (0.0-2.0); BILIRUBIN,TOTAL 0.4 mg/dL (0.2-1.0); TOTAL PROTEIN 7.3 g/dL (6.4-8.2)
[2018-11-17] MEDS ORDERED: ONDANSETRON ODT 4 MG PO ONE (23:30)
--- NOTE | 2018-11-17 23:33 | NUR ---
REPORT TO ZOILA IQBAL FOR ROOM 503
[2018-11-17 23:50] VITALS: BP 146/89
[2018-11-18] MEDS ORDERED: LIDODERM 5% PATCH TD PRN
[2018-11-18] MEDS ORDERED: ENALAPRILAT 1.25 MG/ML, 2ML IVPush PRN
[2018-11-18] MEDS ORDERED: ONDANSETRON 2MG/ML, 2ML IVPush PRN
[2018-11-18] MEDS ORDERED: GABAPENTIN 300 MG CAPSULE PO PRN
[2018-11-18] MEDS ORDERED: ENOXAPARIN 40 MG/0.4 ML SQ SCH
[2018-11-18] MEDS ORDERED: hydrALAzine 20 MG/ML, 1ML IVPush PRN
[2018-11-18] MEDS ORDERED: ATORVASTATIN 40 MG TABLET PO SCH
[2018-11-18] MEDS ORDERED: ACETAMINOPHEN 325 MG TABLET PO PRN
[2018-11-18] MEDS: OMEPRAZOLE 20 MG CAPSULE.DR PO SCH ×2 (00:11→08:48)
[2018-11-18] MEDS: morphine SULFATE 10 MG/ML, 1ML IVPush PRN ×3 (00:11→13:01)
[2018-11-18 00:24] LABS: HEMOGLOBIN A1C 9.8 % (4.2-6.3)
[2018-11-18] MEDS ORDERED: HYDROcodone/APAP 10/325 MG TABLET PO PRN (01:00)
[2018-11-18] MEDS: HYDROcodone/APAP 10/325 MG TABLET PO PRN ×4 (01:05→11:16)
[2018-11-18 02:47] VITALS: BP 163/79
[2018-11-18 03:14] LABS: TROPONIN I < 0.015 ng/mL (0.000-0.045)
[2018-11-18] MEDS ORDERED: ASPIRIN 325 MG TABLET EC PO SCH (06:00)
[2018-11-18 06:35] VITALS: BP 145/68
[2018-11-18 08:37] LABS: TROPONIN I < 0.015 ng/mL (0.000-0.045)
[2018-11-18] MEDS ORDERED: OMNIPAQUE 350 MG/ML, 100ML BOTTLE ONE (08:47)
[2018-11-18] MEDS ORDERED: CIPROFLOXACIN LACTATE 200 MG in DEXTROSE 5% 100 ML IV SCH (09:00)
[2018-11-18] MEDS ORDERED: LOSARTAN 50MG TABLET PO SCH (09:00)
[2018-11-18] MEDS ORDERED: HYDROCHLOROTHIAZIDE 12.5 MG CAPSULE PO SCH (09:00)
[2018-11-18] MEDS ORDERED: INSULIN GLARGINE 100 UNITS/ML, PEN SQ-INSULIN SCH ×3 (09:00)
[2018-11-18] MEDS ORDERED: AMLODIPINE 10 MG TAB PO SCH (09:00)
[2018-11-18 10:58] LABS: RAPID INFLUENZA A Negative (Negative); RAPID INFLUENZA B Negative (Negative)
[2018-11-18] MEDS ORDERED: INSULIN LISPRO 100 UNITS/ML, PEN SQ-INSULIN SCH ×2 (11:00)
[2018-11-18] MEDS ORDERED: INSU100V8 SQ (11:55)
[2018-11-18] MEDS ORDERED: CIPR500T3 PO (11:55)
[2018-11-18] MEDS ORDERED: METO25TA35 PO (11:55)
[2018-11-18 14:05] VITALS: BP 137/71
== END 2018-11-18 14:20 | disposition home or self-care (01) | DRG 313 ==
LOC: ED 22:38 → EDIP 23:17 → 5SO 23:47 → DCLOUNGE 11-18 14:14
PROVIDERS: ADMIT Family Medicine; ATTEND Internal Medicine
DX: R07.9 Chest pain, unspecified (principal); E11.65 Type 2 diabetes mellitus with hyperglycemia; E66.9 Obesity, unspecified; E78.00 Pure hypercholesterolemia, unspecified; E78.5 Hyperlipidemia, unspecified; F17.210 Nicotine dependence, cigarettes, uncomplicated; I10 Essential (primary) hypertension; I25.10 Atherosclerotic heart disease of native coronary artery without angina pectoris; K21.9 Gastro-esophageal reflux disease without esophagitis; G89.29 Other chronic pain; J20.9 Acute bronchitis, unspecified; Z79.4 Long term (current) use of insulin; Z82.49 Family history of ischemic heart disease and other diseases of the circulatory system; Z86.19 Personal history of other infectious and parasitic diseases; Z83.3 Family history of diabetes mellitus; Z90.49 Acquired absence of other specified parts of digestive tract; Z88.1 Allergy status to other antibiotic agents; Z88.8 Allergy status to other drugs, medicaments and biological substances; Z71.3 Dietary counseling and surveillance; Z68.35 Body mass index [BMI] 35.0-35.9, adult
CPT/HCPCS: 36415; 71045; 71275; 80048; 80076; 82040; 82962; 83036; 83690; 84484; 85025; 85379; 87400; 93005; 99285; G0378; J1650; J2405; Q0162; Q9967; J0744; J1815; J2270

== ENCOUNTER 2018-12-12 21:13 | Inpatient (IN) | payer MEDICAID, OTHER ==
[~2018-12-12] VITALS: Ht 170.2 cm; Wt 98.7 kg
[~2018-12-12 21:13] MED LIST changes: +CIPR500T3 PO
--- NOTE | 2018-12-12 21:47 | NUR ---
PT IS HERE FOR LEFT EAR PAIN X 1 DAY. PT REPORTS THAT THE PAIN IS GIVING HIM A HEADACHE. PT DENIES ANY TRUAMA. PT HAS POOR CONTORLLED DIABETES-2. PT REPORTS SOME DIZZY SPELLS EARLIER TODAY. PT RESTING IN BED AND NAND. VSS.
[2018-12-12] MEDS ORDERED: MORPHINE SULFATE 4 MG/ML, 1ML IVPush PRN (22:00)
[2018-12-12] MEDS ORDERED: ONDANSETRON 2MG/ML, 2ML IVPush ONE (22:00)
--- NOTE | 2018-12-12 22:03 | NUR ---
PT MOVED TO ROOM 22, PT HAVING TENDER MANDIBULARE JOINT. PT TO HAVE PIV PLACED.
[2018-12-12] MEDS ORDERED: ONDANSETRON 2MG/ML, 2ML ONE (22:19)
[2018-12-12] MEDS ORDERED: MORPHINE SULFATE 4 MG/ML, 1ML ONE (22:20)
--- NOTE | 2018-12-12 22:30 | NUR ---
PIV PLACED AND PT MEDICATED PER EMAR.
[2018-12-12 22:35] LABS: BASOPHILS # (AUTO) 0.03 x10^3/uL (0-0.1); BASOPHILS % (AUTO) 0 % (0-1); EOSINOPHILS # (AUTO) 0.03 x10^3/uL (0-0.4); EOSINOPHILS % (AUTO) 1 % (1-7); LYMPHOCYTES # (AUTO) 1.54 x10^3/uL (1-3.4); LYMPHOCYTES % (AUTO) 22 % (22-44); MD NO; MEAN CORPUSCULAR HEMOGLOBIN 29.6 pg (27.5-34.5); MEAN CORPUSCULAR HGB CONC 32.9 g/dL (33.2-36.2); MEAN CORPUSCULAR VOLUME 89.9 fL (81-97); MEAN PLATELET VOLUME 9.1 fL (7.4-10.4); MONOCYTES # (AUTO) 0.41 x10^3/uL (0.2-0.8); MONOCYTES % (AUTO) 6 % (2-9); NEUTROPHILS # (AUTO) 4.92 x10^3/uL (1.8-6.8); NEUTROPHILS % (AUTO) 71 % (42-75); PLATELET COUNT 120 x10^3/uL (130-400); RED BLOOD COUNT 5.43 x10^6/uL (4.38-5.82); RED CELL DISTRIBUTION WIDTH 14.5 % (9.4-14.8)
--- NOTE | 2018-12-12 22:38 | NUR ---
CT PENDING LAB/CREATINE
[2018-12-12 22:39] LABS: ANION GAP 9 mmol/L (5-15); CALCIUM 9.1 mg/dL (8.5-10.1); CHLORIDE 109 mmol/L (98-107); CREATININE 0.98 mg/dL (0.7-1.3)
[2018-12-12] MEDS ORDERED: OMNIPAQUE 350 MG/ML, 100ML BOTTLE ONE (23:19)
--- NOTE | 2018-12-13 00:13 | NUR ---
PT WALKED TO BATHROOM. PT RESTING. LATASHA.
[2018-12-13] MEDS ORDERED: AMPICILLIN/SULBACTAM 3 GM in SODIUM CHLORIDE 0.9% 100 ML IV ONE (00:30)
[2018-12-13] MEDS ORDERED: VANCOMYCIN PER PHARMACY MC PRN (01:00)
[2018-12-13] MEDS ORDERED: CIPROFLOXACIN DEXAMETHASONE EAR SUSP 7.5ML LEFT EAR SCH ×2 (01:00→09:00)
[2018-12-13] MEDS ORDERED: NITROGLYCERIN SINGLE TAB 0.4 MG SL PRN (01:30)
[2018-12-13] MEDS ORDERED: PHARMACOKINETIC MONITORING MC PRN (01:30)
[2018-12-13] MEDS ORDERED: PHARMACOKINETIC CONSULTATION MC ONE (01:30)
[2018-12-13 01:40] VITALS: BP 136/78
[2018-12-13] MEDS: OXYcodone IR 5MG TABLET PO PRN ×3 (01:55→22:12)
[2018-12-13] MEDS: CEFTRIAXONE PMX 2GM/50ML 50 ML IV SCH (01:56)
[2018-12-13] MEDS: SODIUM CHLORIDE 0.9% 1,000 ML IV SCH ×2 (01:56→20:05)
[2018-12-13 02:10] LABS: HEMOGLOBIN A1C 9.5 % (4.2-6.3)
[2018-12-13] MEDS: VANCOMYCIN 1,700 MG in SODIUM CHLORIDE 0.9% 250 ML IV SCH ×2 (03:18→14:23)
[2018-12-13] MEDS: morphine SULFATE 10 MG/ML, 1ML IVPush PRN ×5 (03:18→20:36)
[2018-12-13 06:09] VITALS: BP 148/79
[2018-12-13] MEDS: METOPROLOL TARTRATE 25 MG TABLET PO SCH ×2 (06:15→17:31)
[2018-12-13] MEDS: OMEPRAZOLE 20 MG CAPSULE.DR PO SCH ×2 (07:43→20:30)
[2018-12-13] MEDS: AMLODIPINE 10 MG TAB PO SCH (07:43)
[2018-12-13] MEDS: LOSARTAN 50MG TABLET PO SCH (07:43)
[2018-12-13] MEDS ORDERED: INSULIN GLARGINE HUM REC ANLOG 50 UNIT SQ SCH (09:00)
[2018-12-13] MEDS: INSULIN LISPRO 100 UNITS/ML, PEN SQ-INSULIN SCH ×4 (09:10→20:36)
[2018-12-13] MEDS: FLUTICASONE NASAL SPRAY 16GM NAS SCH ×2 (10:46→20:30)
[2018-12-13] MEDS: SODIUM CHLORIDE NASAL SPRAY 45ML BOTTLE NAS SCH ×2 (10:46→20:30)
[2018-12-13] MEDS: INSULIN GLARGINE 100 UNITS/ML, PEN SQ-INSULIN SCH (10:46)
[2018-12-13] MEDS: ENOXAPARIN 40 MG/0.4 ML SQ SCH (10:47)
[2018-12-13 13:03] VITALS: BP 137/73
[2018-12-13 19:01] VITALS: BP 130/74
[2018-12-13] MEDS: ATORVASTATIN 40 MG TABLET PO SCH (20:30)
[2018-12-13] MEDS: ACETAMINOPHEN 325 MG TABLET PO PRN (22:12)
[2018-12-14] MEDS: morphine SULFATE 10 MG/ML, 1ML IVPush PRN ×7 (01:01→22:17)
[2018-12-14] MEDS: CEFTRIAXONE PMX 2GM/50ML 50 ML IV SCH (01:02)
[2018-12-14 01:31] VITALS: BP 140/71
[2018-12-14] MEDS: VANCOMYCIN 1,700 MG in SODIUM CHLORIDE 0.9% 250 ML IV SCH (02:16)
[2018-12-14 06:13] LABS: ALBUMIN 3.2 g/dL (3.4-5.0); ANION GAP 8 mmol/L (5-15); CALCIUM 8.6 mg/dL (8.5-10.1); CHLORIDE 109 mmol/L (98-107)
[2018-12-14 06:16] LABS: ALANINE AMINOTRANSFERASE 30 U/L (12-78); ALKALINE PHOSPHATASE 89 U/L (45-117); BILIRUBIN,TOTAL 0.6 mg/dL (0.2-1.0); CREATININE 0.75 mg/dL (0.7-1.3); TOTAL PROTEIN 6.1 g/dL (6.4-8.2)
[2018-12-14] MEDS: INSULIN LISPRO 100 UNITS/ML, PEN SQ-INSULIN SCH ×4 (06:17→22:08)
[2018-12-14] MEDS: METOPROLOL TARTRATE 25 MG TABLET PO SCH ×2 (06:17→18:02)
[2018-12-14] MEDS: OXYcodone IR 5MG TABLET PO PRN ×2 (06:20→12:46)
[2018-12-14] MEDS: ACETAMINOPHEN 325 MG TABLET PO PRN (06:20)
[2018-12-14 06:38] VITALS: BP 130/73
[2018-12-14 07:43] LABS: MD YES; MEAN CORPUSCULAR HGB CONC 32.9 g/dL (33.2-36.2); MEAN CORPUSCULAR VOLUME 88.1 fL (81-97); MEAN PLATELET VOLUME 8.9 fL (7.4-10.4); PLATELET COUNT 93 x10^3/uL (130-400); RED BLOOD COUNT 4.77 x10^6/uL (4.38-5.82); RED CELL DISTRIBUTION WIDTH 14.3 % (9.4-14.8)
[2018-12-14 07:46] LABS: BASOS#(MANUAL) 0.11 x10^3/uL (0-0.1); BASOS% (MANUAL) 2 % (0-1); EOS#(MANUAL) 0.05 x10^3/uL (0.0-0.4); EOS% (MANUAL) 1 % (1-7); LYMPH#(MANUAL) 1.91 x10^3/uL (1-3.4); LYMPHS% (MANUAL) 36 % (22-44); MONOS#(MANUAL) 0.27 x10^3/uL (0.3-2.7); MONOS% (MANUAL) 5 % (2-9); SEG#(MANUAL) 2.97 x10^3/uL (1.8-6.8); SEGS% (MANUAL) 56 % (42-75)
[2018-12-14 07:47] LABS: <PLATELET ESTIMATE> DECREASED; <PLT MORPHOLOGY> NORMAL PLT MORPH; <RBC MORPHOLOGY> NORMAL
[2018-12-14 07:48] LABS: HEMOGRAM NOTE RECHECKED
[2018-12-14] MEDS: LOSARTAN 50MG TABLET PO SCH (08:16)
[2018-12-14] MEDS: FLUTICASONE NASAL SPRAY 16GM NAS SCH ×2 (08:16→22:07)
[2018-12-14] MEDS: AMLODIPINE 10 MG TAB PO SCH (08:16)
[2018-12-14] MEDS: SODIUM CHLORIDE NASAL SPRAY 45ML BOTTLE NAS SCH ×2 (08:16→22:07)
[2018-12-14] MEDS: OMEPRAZOLE 20 MG CAPSULE.DR PO SCH ×2 (08:16→22:08)
[2018-12-14] MEDS: INSULIN GLARGINE 100 UNITS/ML, PEN SQ-INSULIN SCH (08:16)
[2018-12-14] MEDS: ENOXAPARIN 40 MG/0.4 ML SQ SCH (08:22)
[2018-12-14 10:22] LABS: HCT (SEDRATE) 42.9 % (39.2-51.8)
[2018-12-14] MEDS: SODIUM CHLORIDE 0.9% 1,000 ML IV SCH (11:18)
[2018-12-14 12:25] VITALS: BP 142/83
[2018-12-14] MEDS ORDERED: MORPHINE SULFATE 4 MG/ML, 1ML ONE (14:27)
[2018-12-14] MEDS: CEFEPIME 2 GM in DEXTROSE 5% 100 ML IV SCH ×2 (14:29→22:09)
[2018-12-14] MEDS ORDERED: GADOBUTROL 10 MMOL/10 ML PFS ONE (17:09)
[2018-12-14] MEDS: HYDROcodone/APAP 10/325 MG TABLET PO PRN (18:01)
[2018-12-14 20:14] VITALS: BP 126/58
[2018-12-14] MEDS: ATORVASTATIN 40 MG TABLET PO SCH (22:08)
[2018-12-15] MEDS: HYDROcodone/APAP 10/325 MG TABLET PO PRN ×4 (00:03→19:13)
[2018-12-15 01:36] VITALS: BP 149/77
[2018-12-15] MEDS: morphine SULFATE 10 MG/ML, 1ML IVPush PRN ×5 (02:13→21:02)
[2018-12-15 05:25] LABS: MEAN CORPUSCULAR HEMOGLOBIN 29.4 pg (27.5-34.5); MEAN CORPUSCULAR HGB CONC 33.5 g/dL (33.2-36.2); MEAN CORPUSCULAR VOLUME 87.9 fL (81-97); MEAN PLATELET VOLUME 9.1 fL (7.4-10.4); PLATELET COUNT 92 x10^3/uL (130-400); RED BLOOD COUNT 4.75 x10^6/uL (4.38-5.82); RED CELL DISTRIBUTION WIDTH 14.1 % (9.4-14.8)
[2018-12-15 05:30] LABS: ANION GAP 8 mmol/L (5-15); CALCIUM 8.4 mg/dL (8.5-10.1); CHLORIDE 112 mmol/L (98-107)
[2018-12-15 06:07] LABS: BASOPHILS # (AUTO) 0.01 x10^3/uL (0-0.1); BASOPHILS % (AUTO) 0 % (0-1); EOSINOPHILS # (AUTO) 0.09 x10^3/uL (0-0.4); EOSINOPHILS % (AUTO) 2 % (1-7); LYMPHOCYTES # (AUTO) 1.59 x10^3/uL (1-3.4); LYMPHOCYTES % (AUTO) 37 % (22-44); MD SCAN; MONOCYTES # (AUTO) 0.38 x10^3/uL (0.2-0.8); MONOCYTES % (AUTO) 9 % (2-9); NEUTROPHILS # (AUTO) 2.25 x10^3/uL (1.8-6.8); NEUTROPHILS % (AUTO) 52 % (42-75)
[2018-12-15 06:22] VITALS: BP 150/83
[2018-12-15] MEDS: METOPROLOL TARTRATE 25 MG TABLET PO SCH (06:28)
[2018-12-15] MEDS: SODIUM CHLORIDE 0.9% 1,000 ML IV SCH ×2 (06:28→20:50)
[2018-12-15] MEDS: CEFEPIME 2 GM in DEXTROSE 5% 100 ML IV SCH ×3 (06:28→22:12)
[2018-12-15] MEDS: INSULIN LISPRO 100 UNITS/ML, PEN SQ-INSULIN SCH ×4 (06:30→20:50)
[2018-12-15] MEDS: LOSARTAN 50MG TABLET PO SCH (08:54)
[2018-12-15] MEDS: OMEPRAZOLE 20 MG CAPSULE.DR PO SCH ×2 (08:54→20:49)
[2018-12-15] MEDS: SODIUM CHLORIDE NASAL SPRAY 45ML BOTTLE NAS SCH ×2 (08:55→20:50)
[2018-12-15] MEDS: INSULIN GLARGINE 100 UNITS/ML, PEN SQ-INSULIN SCH (08:55)
[2018-12-15] MEDS: FLUTICASONE NASAL SPRAY 16GM NAS SCH ×2 (08:55→20:49)
[2018-12-15] MEDS: ENOXAPARIN 40 MG/0.4 ML SQ SCH (08:55)
[2018-12-15] MEDS: AMLODIPINE 10 MG TAB PO SCH (08:58)
[2018-12-15 14:02] VITALS: BP 163/89
[2018-12-15 19:51] VITALS: BP 173/73
[2018-12-15] MEDS: ATORVASTATIN 40 MG TABLET PO SCH (20:49)
[2018-12-16] MEDS: morphine SULFATE 10 MG/ML, 1ML IVPush PRN ×5 (00:39→22:05)
[2018-12-16 01:40] VITALS: BP 177/94
[2018-12-16] MEDS: HYDROcodone/APAP 10/325 MG TABLET PO PRN ×3 (01:46→20:08)
[2018-12-16 01:56] VITALS: BP 164/80
[2018-12-16] MEDS: ACETAMINOPHEN 325 MG TABLET PO PRN (04:21)
[2018-12-16 04:35] LABS: MEAN CORPUSCULAR HEMOGLOBIN 29.6 pg (27.5-34.5); MEAN CORPUSCULAR HGB CONC 33.4 g/dL (33.2-36.2); MEAN CORPUSCULAR VOLUME 88.8 fL (81-97); MEAN PLATELET VOLUME 9.5 fL (7.4-10.4); PLATELET COUNT 96 x10^3/uL (130-400); RED BLOOD COUNT 4.87 x10^6/uL (4.38-5.82); RED CELL DISTRIBUTION WIDTH 14.2 % (9.4-14.8)
[2018-12-16 04:39] LABS: ANION GAP 7 mmol/L (5-15); CALCIUM 8.4 mg/dL (8.5-10.1); CHLORIDE 111 mmol/L (98-107)
[2018-12-16 04:42] LABS: C-REACTIVE PROTEIN, QUANT 0.06 mg/dL (0.02-0.49); CREATININE 0.78 mg/dL (0.7-1.3)
[2018-12-16 04:57] LABS: HCT (SEDRATE) 43.3 % (39.2-51.8)
[2018-12-16] MEDS: CEFEPIME 2 GM in DEXTROSE 5% 100 ML IV SCH ×3 (06:02→22:05)
[2018-12-16 06:59] LABS: BASOPHILS # (AUTO) 0.03 x10^3/uL (0-0.1); BASOPHILS % (AUTO) 1 % (0-1); EOSINOPHILS # (AUTO) 0.11 x10^3/uL (0-0.4); EOSINOPHILS % (AUTO) 3 % (1-7); LYMPHOCYTES # (AUTO) 1.61 x10^3/uL (1-3.4); LYMPHOCYTES % (AUTO) 37 % (22-44); MD SCAN; MONOCYTES # (AUTO) 0.44 x10^3/uL (0.2-0.8); MONOCYTES % (AUTO) 10 % (2-9); NEUTROPHILS # (AUTO) 2.21 x10^3/uL (1.8-6.8); NEUTROPHILS % (AUTO) 50 % (42-75)
[2018-12-16 08:10] VITALS: BP 165/94
[2018-12-16 08:40] VITALS: BP 160/83
[2018-12-16] MEDS: ENOXAPARIN 40 MG/0.4 ML SQ SCH (08:55)
[2018-12-16] MEDS: INSULIN GLARGINE 100 UNITS/ML, PEN SQ-INSULIN SCH (08:55)
[2018-12-16] MEDS: SODIUM CHLORIDE NASAL SPRAY 45ML BOTTLE NAS SCH ×2 (08:56→20:14)
[2018-12-16] MEDS: FLUTICASONE NASAL SPRAY 16GM NAS SCH ×2 (08:56→20:14)
[2018-12-16] MEDS: INSULIN LISPRO 100 UNITS/ML, PEN SQ-INSULIN SCH ×4 (08:56→20:14)
[2018-12-16] MEDS: OMEPRAZOLE 20 MG CAPSULE.DR PO SCH ×2 (08:57→20:07)
[2018-12-16] MEDS: LOSARTAN 50MG TABLET PO SCH (09:07)
[2018-12-16] MEDS: AMLODIPINE 10 MG TAB PO SCH (09:08)
[2018-12-16] MEDS: SODIUM CHLORIDE 0.9% 1,000 ML IV SCH (12:31)
[2018-12-16 13:54] VITALS: BP 149/79
[2018-12-16 18:51] VITALS: BP 172/81
[2018-12-16] MEDS: ATORVASTATIN 40 MG TABLET PO SCH (20:08)
[2018-12-17 01:50] VITALS: BP 173/98
[2018-12-17 02:14] VITALS: BP 156/83
[2018-12-17] MEDS: SODIUM CHLORIDE 0.9% 1,000 ML IV SCH (02:15)
[2018-12-17] MEDS: HYDROcodone/APAP 10/325 MG TABLET PO PRN ×2 (04:57→11:49)
[2018-12-17 05:03] LABS: BASOPHILS # (AUTO) 0.03 x10^3/uL (0-0.1); BASOPHILS % (AUTO) 1 % (0-1); EOSINOPHILS # (AUTO) 0.11 x10^3/uL (0-0.4); EOSINOPHILS % (AUTO) 2 % (1-7); LYMPHOCYTES # (AUTO) 1.72 x10^3/uL (1-3.4); LYMPHOCYTES % (AUTO) 34 % (22-44); MD NO; MEAN CORPUSCULAR HGB CONC 33.7 g/dL (33.2-36.2); MEAN CORPUSCULAR VOLUME 88.9 fL (81-97); MEAN PLATELET VOLUME 9.3 fL (7.4-10.4); MONOCYTES # (AUTO) 0.42 x10^3/uL (0.2-0.8); MONOCYTES % (AUTO) 8 % (2-9); NEUTROPHILS # (AUTO) 2.75 x10^3/uL (1.8-6.8); NEUTROPHILS % (AUTO) 55 % (42-75); PLATELET COUNT 101 x10^3/uL (130-400); RED BLOOD COUNT 4.91 x10^6/uL (4.38-5.82); RED CELL DISTRIBUTION WIDTH 14.4 % (9.4-14.8)
[2018-12-17 05:12] LABS: HCT (SEDRATE) 43.6 % (39.2-51.8)
[2018-12-17 05:17] LABS: ANION GAP 10 mmol/L (5-15); CHLORIDE 113 mmol/L (98-107)
[2018-12-17] MEDS: CEFEPIME 2 GM in DEXTROSE 5% 100 ML IV SCH ×2 (05:38→14:14)
[2018-12-17 07:02] VITALS: BP 155/82
[2018-12-17] MEDS: FLUTICASONE NASAL SPRAY 16GM NAS SCH (08:51)
[2018-12-17] MEDS: INSULIN GLARGINE 100 UNITS/ML, PEN SQ-INSULIN SCH (08:52)
[2018-12-17] MEDS: INSULIN LISPRO 100 UNITS/ML, PEN SQ-INSULIN SCH ×2 (08:52→11:59)
[2018-12-17] MEDS: OMEPRAZOLE 20 MG CAPSULE.DR PO SCH (08:53)
[2018-12-17] MEDS: AMLODIPINE 10 MG TAB PO SCH (08:53)
[2018-12-17] MEDS: LOSARTAN 50MG TABLET PO SCH (08:53)
[2018-12-17] MEDS: SODIUM CHLORIDE NASAL SPRAY 45ML BOTTLE NAS SCH (08:54)
[2018-12-17] MEDS: ENOXAPARIN 40 MG/0.4 ML SQ SCH (08:54)
[2018-12-17] MEDS: morphine SULFATE 10 MG/ML, 1ML IVPush PRN (09:03)
[2018-12-17] MEDS ORDERED: OMNIPAQUE 350 MG/ML, 100ML BOTTLE ONE (09:28)
[2018-12-17 12:25] VITALS: BP 156/81
[2018-12-17] MEDS ORDERED: CIPR7.5D OT ×3 (14:37→16:20)
[2018-12-17] MEDS ORDERED: AMOX1TAB64 PO (14:37)
[2018-12-17] MEDS: ACETAMINOPHEN 325 MG TABLET PO PRN (15:08)
== END 2018-12-17 16:33 | disposition home or self-care (01) | DRG 153 ==
LOC: ED 22:02 → 4NOR 12-13 00:56 → ED 12-13 06:25 → 4WST 12-15 12:33
PROVIDERS: ADMIT Family Medicine; ATTEND Family Medicine
DX: H70.002 Acute mastoiditis without complications, left ear (principal); F11.20 Opioid dependence, uncomplicated; H66.92 Otitis media, unspecified, left ear; N61.0 Mastitis without abscess; D69.6 Thrombocytopenia, unspecified; E11.65 Type 2 diabetes mellitus with hyperglycemia; E78.5 Hyperlipidemia, unspecified; E87.6 Hypokalemia; F17.200 Nicotine dependence, unspecified, uncomplicated; F41.1 Generalized anxiety disorder; G89.29 Other chronic pain; H72.92 Unspecified perforation of tympanic membrane, left ear; H91.90 Unspecified hearing loss, unspecified ear; I10 Essential (primary) hypertension; I25.10 Atherosclerotic heart disease of native coronary artery without angina pectoris; J32.0 Chronic maxillary sinusitis; K21.9 Gastro-esophageal reflux disease without esophagitis; Z79.4 Long term (current) use of insulin; Z83.3 Family history of diabetes mellitus; Z87.11 Personal history of peptic ulcer disease; Z90.49 Acquired absence of other specified parts of digestive tract; Z88.8 Allergy status to other drugs, medicaments and biological substances; Z79.899 Other long term (current) drug therapy
CPT/HCPCS: 36415; 70460; 70480; 70553; 72127; 80048; 80053; 82040; 82962; 83036; 85025; 85651; 86140; 87081; 96365; 96375; A9585; G0378; J0295; J0696; J1650; J2405; J3370; Q9967; J1815; J2270; J7030; J7050

== ENCOUNTER 2018-12-21 12:09 | Emergency (ER) | payer MEDICAID ==
[~2018-12-21] VITALS: Ht 170.2 cm; Wt 98.0 kg
[~2018-12-21 12:09] MED LIST changes: +AMOX1TAB64 PO; +CIPR7.5D OT
--- NOTE | 2018-12-21 13:11 | NUR ---
PT AMBULATORY WITH STEADY GAIT TO ROOM AT THIS TIME.
--- NOTE | 2018-12-21 13:13 | NUR ---
53 y/o male PRESENTS TO ED WITH C/O LEFT EAR PAIN AND DRAINAGE. per son "He has an ear infection going on. He was here about a week ago and admitted for 5 days. HE GOT DISCHARGED TUESDAY. WE HAVE BEEN TAKING ABX AT HOME AND IT SEEMS TO BE WORSE. THERE IS MORE DISCHARGE FROM HIS EAR." NO ACUTE DISTRESS NOTED. NO C/O TRAUMA, SYNCOPE.
[2018-12-21] MEDS ORDERED: MORPHINE SULFATE 4 MG/ML, 1ML IVPush PRN (13:30)
[2018-12-21] MEDS ORDERED: ONDANSETRON 2MG/ML, 2ML IVPush ONE (13:30)
[2018-12-21] MEDS ORDERED: SODIUM CHLORIDE FLUSH 10ML SYR IVF ONE (13:30)
[2018-12-21 13:38] LABS: BASOPHILS # (AUTO) 0.05 x10^3/uL (0-0.1); BASOPHILS % (AUTO) 1 % (0-1); EOSINOPHILS # (AUTO) 0.01 x10^3/uL (0-0.4); EOSINOPHILS % (AUTO) 0 % (1-7); LYMPHOCYTES % (AUTO) 19 % (22-44); MD NO; MEAN CORPUSCULAR HEMOGLOBIN 29.2 pg (27.5-34.5); MEAN CORPUSCULAR HGB CONC 33.4 g/dL (33.2-36.2); MEAN CORPUSCULAR VOLUME 87.4 fL (81-97); MEAN PLATELET VOLUME 9.2 fL (7.4-10.4); MONOCYTES # (AUTO) 0.44 x10^3/uL (0.2-0.8); MONOCYTES % (AUTO) 6 % (2-9); NEUTROPHILS # (AUTO) 5.14 x10^3/uL (1.8-6.8); NEUTROPHILS % (AUTO) 74 % (42-75); PLATELET COUNT 141 x10^3/uL (130-400); RED BLOOD COUNT 5.41 x10^6/uL (4.38-5.82); RED CELL DISTRIBUTION WIDTH 14.5 % (9.4-14.8)
[2018-12-21 13:45] LABS: ALBUMIN 4.2 g/dL (3.4-5.0); ANION GAP 8 mmol/L (5-15); CALCIUM 9.2 mg/dL (8.5-10.1); CHLORIDE 105 mmol/L (98-107)
[2018-12-21 13:49] LABS: ALANINE AMINOTRANSFERASE 40 U/L (12-78); ALKALINE PHOSPHATASE 128 U/L (45-117); BILIRUBIN,TOTAL 0.6 mg/dL (0.2-1.0); CREATININE 1.09 mg/dL (0.7-1.3); TOTAL PROTEIN 7.6 g/dL (6.4-8.2)
[2018-12-21] MEDS ORDERED: OXYcodone/APAP 10/325MG TABLET ONE (13:53)
[2018-12-21] MEDS ORDERED: DIAZEPAM 5 MG TABLET ONE (13:53)
--- NOTE | 2018-12-21 13:57 | NUR ---
PT RESTING ONGURNEY. MEDICATIONS ADMINISTERED PER EMAR. FAMILY BEDSIDE. NO ACUTE DSITRESS NOTED. NO OTHER NEEDS REQUESTED AT THIS TIME.
[2018-12-21] MEDS ORDERED: DIAZEPAM 5 MG TABLET PO ONE (14:00)
[2018-12-21] MEDS ORDERED: OXYcodone/APAP 10/325MG TABLET PO ONE (14:00)
--- NOTE | 2018-12-21 14:05 | NUR ---
PT PLACED ON CONT PULSE OX,NIBP.
--- NOTE | 2018-12-21 14:31 | NUR ---
PT STATES "I'M FEELING THE SAME." FAMILY BEDSIDE. NO ACUTE DISTRESS NOTED.
[2018-12-21] MEDS ORDERED: MECLIZINE CHEWABLE 25 MG TAB PO ONE (15:00)
[2018-12-21] MEDS ORDERED: MECLIZINE CHEWABLE 25 MG TAB ONE (15:27)
[2018-12-21 15:28] VITALS: BP 144/69
--- NOTE | 2018-12-21 15:29 | NUR ---
PT RESTING ON GURNEY. FAMILY BEDSIDE. NO ACUTE DISTRESS NOTED. NO OTHER NEEDS REQUESTED AT THIS TIME. MEDICATION ADMINISTERED PER EMAR.
--- NOTE | 2018-12-21 16:10 | NUR ---
PT STATES MEDICATION HELPED AND HE FEELS BETTER.
--- NOTE | 2018-12-21 16:25 | NUR ---
Patient/Caregiver given discharge instructions and they have confirmed that they understand the instructions. Patient ambulatory with steady gait. PT LEFT WITH ALL PERSONAL BELONGINGS.
== END 2018-12-21 16:28 | disposition home or self-care (01) ==
LOC: ED 13:11
DX: H72.92 Unspecified perforation of tympanic membrane, left ear (principal); H81.12 Benign paroxysmal vertigo, left ear; K21.9 Gastro-esophageal reflux disease without esophagitis; I25.10 Atherosclerotic heart disease of native coronary artery without angina pectoris; I10 Essential (primary) hypertension; E11.65 Type 2 diabetes mellitus with hyperglycemia
CPT/HCPCS: 36415; 80053; 85025; 99284

== ENCOUNTER 2018-12-26 09:46 | Inpatient (IN) | payer MEDICAID ==
[~2018-12-26] VITALS: Ht 167.6 cm; Wt 101.9 kg
--- NOTE | 2018-12-26 09:53 | NUR ---
EKG IN TRIAGE
[2018-12-26] MEDS ORDERED: ASPI-496 PO (10:29)
[2018-12-26 10:53] LABS: BASOPHILS # (AUTO) 0.04 x10^3/uL (0-0.1); BASOPHILS % (AUTO) 1 % (0-1); EOSINOPHILS # (AUTO) 0.01 x10^3/uL (0-0.4); EOSINOPHILS % (AUTO) 0 % (1-7); LYMPHOCYTES # (AUTO) 0.76 x10^3/uL (1-3.4); LYMPHOCYTES % (AUTO) 13 % (22-44); MD NO; MEAN CORPUSCULAR HEMOGLOBIN 29.1 pg (27.5-34.5); MEAN CORPUSCULAR HGB CONC 33.3 g/dL (33.2-36.2); MEAN CORPUSCULAR VOLUME 87.5 fL (81-97); MEAN PLATELET VOLUME 9.1 fL (7.4-10.4); MONOCYTES # (AUTO) 0.33 x10^3/uL (0.2-0.8); MONOCYTES % (AUTO) 6 % (2-9); NEUTROPHILS # (AUTO) 4.76 x10^3/uL (1.8-6.8); NEUTROPHILS % (AUTO) 81 % (42-75); PLATELET COUNT 144 x10^3/uL (130-400); RED BLOOD COUNT 5.21 x10^6/uL (4.38-5.82); RED CELL DISTRIBUTION WIDTH 14.3 % (9.4-14.8)
[2018-12-26] MEDS ORDERED: NITROGLYCERIN SINGLE TAB 0.4 MG SL ONE (10:57)
[2018-12-26] MEDS: NITROGLYCERIN SINGLE TAB 0.4 MG SL PRN ×2 (10:59→11:18)
--- NOTE | 2018-12-26 11:02 | NUR ---
Medicated for 8/10 chest pain, vss.
[2018-12-26 11:03] LABS: ALBUMIN 4.1 g/dL (3.4-5.0); ANION GAP 9 mmol/L (5-15); CALCIUM 9.2 mg/dL (8.5-10.1); CHLORIDE 109 mmol/L (98-107); CREATININE 1.12 mg/dL (0.7-1.3)
[2018-12-26 11:08] LABS: TROPONIN I < 0.015 ng/mL (0.000-0.045)
--- NOTE | 2018-12-26 11:21 | NUR ---
PIV placed, states no change in pain, repeat SL nitro administered, vss.
[2018-12-26] MEDS ORDERED: morphine SULFATE 10 MG/ML, 1ML IVPush ONE (12:00)
[2018-12-26] MEDS ORDERED: LACTATED RINGERS 1,000 ML IVBOLUS ONE (12:00)
--- NOTE | 2018-12-26 12:09 | NUR ---
LUNCH RN: PT MEDICATED PER EMAR.
[2018-12-26] MEDS ORDERED: MORPHINE SULFATE 4 MG/ML, 1ML ONE (12:29)
--- NOTE | 2018-12-26 12:36 | NUR ---
PT MEDICATED WITH MORPHINE FOR PAIN CONTROL.
--- NOTE | 2018-12-26 12:36 | NUR ---
Report called to recieving Ana Paula Gonzalez. Pt recieved medication for unrelieved pain, vss.
[2018-12-26 13:00] VITALS: BP 170/83
[2018-12-26] MEDS ORDERED: ONDANSETRON 2MG/ML, 2ML IVPush PRN (13:30)
[2018-12-26] MEDS ORDERED: NITROGLYCERIN 0.4 MG BOTTLE (25 TABS) SL PRN (13:30)
[2018-12-26] MEDS ORDERED: DEXTROSE 50%, 50ML SYRINGE IVPush PRN (13:30)
[2018-12-26] MEDS ORDERED: NITROGLYCERIN 0.4 MG/SPRAY SL PRN (13:30)
[2018-12-26] MEDS ORDERED: ACETAMINOPHEN 325 MG TABLET PO PRN (13:30)
[2018-12-26] MEDS ORDERED: LABETALOL 5MG/ML, 20ML IVPush PRN (13:30)
[2018-12-26] MEDS ORDERED: GLUCAGON 1 MG IM PRN (13:30)
[2018-12-26] MEDS ORDERED: DEXTROSE 4 GM TAB.CHEW PO PRN (13:30)
[2018-12-26] MEDS ORDERED: ENALAPRILAT 1.25 MG/ML, 2ML IVPush PRN (13:30)
[2018-12-26 13:52] LABS: TROPONIN I < 0.015 ng/mL (0.000-0.045)
[2018-12-26 14:46] VITALS: BP 151/75
[2018-12-26] MEDS: HYDROcodone/APAP 10/325 MG TABLET PO PRN ×2 (15:08→22:09)
[2018-12-26] MEDS: ENOXAPARIN 40 MG/0.4 ML SQ SCH (15:08)
[2018-12-26 15:42] VITALS: BP 166/87
[2018-12-26] MEDS: INSULIN LISPRO 100 UNITS/ML, PEN SQ-INSULIN SCH ×2 (17:39→21:24)
[2018-12-26] MEDS: METOPROLOL TARTRATE 25 MG TABLET PO SCH (17:40)
[2018-12-26 19:24] VITALS: BP 156/82
[2018-12-26 19:26] LABS: TROPONIN I < 0.015 ng/mL (0.000-0.045)
[2018-12-26] MEDS: ATORVASTATIN 40 MG TABLET PO SCH (20:00)
[2018-12-26] MEDS: MORPHINE SULFATE 4 MG/ML, 1ML IVPush PRN (20:01)
[2018-12-26] MEDS: SODIUM CHLORIDE FLUSH 10ML SYR IVF SCH (21:23)
[2018-12-26] MEDS: INSULIN GLARGINE 100 UNITS/ML, PEN SQ-INSULIN SCH (21:23)
[2018-12-27 00:55] VITALS: BP 153/78
[2018-12-27] MEDS: HYDROcodone/APAP 10/325 MG TABLET PO PRN ×4 (04:37→23:24)
[2018-12-27] MEDS: METOPROLOL TARTRATE 25 MG TABLET PO SCH ×2 (05:42→17:06)
[2018-12-27 06:08] LABS: ALANINE AMINOTRANSFERASE 32 U/L (12-78); ALBUMIN 3.4 g/dL (3.4-5.0); ANION GAP 8 mmol/L (5-15); CALCIUM 8.8 mg/dL (8.5-10.1); CHLORIDE 108 mmol/L (98-107); CHOLESTEROL, TOTAL 135 mg/dL (140-239); CREATININE 0.71 mg/dL (0.7-1.3)
[2018-12-27 06:11] LABS: BASOPHILS # (AUTO) 0.05 x10^3/uL (0-0.1); BASOPHILS % (AUTO) 1 % (0-1); EOSINOPHILS # (AUTO) 0.07 x10^3/uL (0-0.4); EOSINOPHILS % (AUTO) 1 % (1-7); LYMPHOCYTES # (AUTO) 1.75 x10^3/uL (1-3.4); LYMPHOCYTES % (AUTO) 34 % (22-44); MD NO; MEAN CORPUSCULAR HEMOGLOBIN 29.9 pg (27.5-34.5); MEAN CORPUSCULAR HGB CONC 33.3 g/dL (33.2-36.2); MEAN CORPUSCULAR VOLUME 89.8 fL (81-97); MONOCYTES # (AUTO) 0.41 x10^3/uL (0.2-0.8); MONOCYTES % (AUTO) 8 % (2-9); NEUTROPHILS # (AUTO) 2.93 x10^3/uL (1.8-6.8); NEUTROPHILS % (AUTO) 56 % (42-75); PLATELET COUNT 113 x10^3/uL (130-400); RED CELL DISTRIBUTION WIDTH 14.6 % (9.4-14.8)
[2018-12-27 06:16] LABS: ALKALINE PHOSPHATASE 92 U/L (45-117); BILIRUBIN,TOTAL 0.6 mg/dL (0.2-1.0); CHOL/HDL RATIO 3.3; HDL CHOL % 30 % (26-37); HDL CHOLESTEROL (DIRECT) 41 mg/dL (40-60); LDL CHOLESTEROL,CALCULATED 72 mg/dL (54-169); LDL/HDL RATIO 1.8 (0.5-3.0); THYROID STIMULATING HORMONE 0.621 mIU/L (0.358-3.740); TOTAL PROTEIN 6.5 g/dL (6.4-8.2); TRIGLYCERIDES 109 mg/dL (50-200); VLDL CHOLESTEROL 22 mg/dL (0-25)
[2018-12-27 06:55] VITALS: BP 167/84
[2018-12-27] MEDS: INSULIN LISPRO 100 UNITS/ML, PEN SQ-INSULIN SCH ×4 (07:00→21:40)
[2018-12-27] MEDS ORDERED: POTASSIUM CHLORIDE 40 MEQ in SODIUM CHLORIDE 0.9% 500 ML IV ONE (08:00)
[2018-12-27] MEDS ORDERED: MAGNESIUM SULFATE PMX 2GM/50ML 50 ML IV ONE (08:00)
[2018-12-27] MEDS ORDERED: REGADENOSON 0.4 MG/5 ML SYRINGE ONE (09:20)
[2018-12-27] MEDS: ASPIRIN 81 MG TABLET EC PO SCH (11:20)
[2018-12-27] MEDS: LOSARTAN 50MG TABLET PO SCH (11:20)
[2018-12-27] MEDS: HYDROCHLOROTHIAZIDE 12.5 MG CAPSULE PO SCH (11:20)
[2018-12-27] MEDS: AMLODIPINE 10 MG TAB PO SCH (11:20)
[2018-12-27] MEDS: SODIUM CHLORIDE FLUSH 10ML SYR IVF SCH ×2 (11:32→21:35)
[2018-12-27] MEDS: INSULIN GLARGINE 100 UNITS/ML, PEN SQ-INSULIN SCH ×2 (11:32→21:39)
[2018-12-27 12:46] VITALS: BP 176/85
[2018-12-27] MEDS ORDERED: ENALAPRILAT 1.25 MG/ML, 1ML ONE (13:04)
[2018-12-27 13:45] VITALS: BP 168/81
[2018-12-27] MEDS: MORPHINE SULFATE 4 MG/ML, 1ML IVPush PRN (14:00)
[2018-12-27] MEDS: ENOXAPARIN 40 MG/0.4 ML SQ SCH (17:05)
[2018-12-27 19:22] VITALS: BP 172/74
[2018-12-27] MEDS ORDERED: PHARMACOKINETIC CONSULTATION MC ONE (19:30)
[2018-12-27] MEDS ORDERED: VANCOMYCIN PER PHARMACY MC PRN (19:30)
[2018-12-27] MEDS ORDERED: VANCOMYCIN PMX 1GM/200ML 200 ML IV ONE (19:30)
[2018-12-27] MEDS ORDERED: PHARMACOKINETIC MONITORING MC PRN (19:30)
[2018-12-27] MEDS: PIPERACILLIN/TAZO/PMX 3.375GM 50 ML IV SCH (21:34)
[2018-12-27] MEDS: ATORVASTATIN 40 MG TABLET PO SCH (21:35)
[2018-12-27] MEDS: VANCOMYCIN 1,800 MG in SODIUM CHLORIDE 0.9% 250 ML IV SCH (23:24)
[2018-12-28 01:13] VITALS: BP 135/71
[2018-12-28] MEDS: PIPERACILLIN/TAZO/PMX 3.375GM 50 ML IV SCH ×4 (04:20→21:31)
[2018-12-28 04:55] LABS: BASOPHILS # (AUTO) 0.03 x10^3/uL (0-0.1); BASOPHILS % (AUTO) 1 % (0-1); EOSINOPHILS # (AUTO) 0.08 x10^3/uL (0-0.4); EOSINOPHILS % (AUTO) 2 % (1-7); LYMPHOCYTES # (AUTO) 1.99 x10^3/uL (1-3.4); LYMPHOCYTES % (AUTO) 40 % (22-44); MD NO; MEAN PLATELET VOLUME 8.9 fL (7.4-10.4); MONOCYTES # (AUTO) 0.52 x10^3/uL (0.2-0.8); MONOCYTES % (AUTO) 10 % (2-9); NEUTROPHILS # (AUTO) 2.37 x10^3/uL (1.8-6.8); NEUTROPHILS % (AUTO) 48 % (42-75); PLATELET COUNT 119 x10^3/uL (130-400); RED CELL DISTRIBUTION WIDTH 14.3 % (9.4-14.8)
[2018-12-28 05:04] LABS: ANION GAP 6 mmol/L (5-15); CALCIUM 8.8 mg/dL (8.5-10.1); CHLORIDE 107 mmol/L (98-107); CREATININE 0.86 mg/dL (0.7-1.3)
[2018-12-28] MEDS: HYDROcodone/APAP 10/325 MG TABLET PO PRN ×4 (05:24→23:08)
[2018-12-28] MEDS: METOPROLOL TARTRATE 25 MG TABLET PO SCH ×2 (05:51→16:45)
[2018-12-28] MEDS: INSULIN LISPRO 100 UNITS/ML, PEN SQ-INSULIN SCH ×4 (07:00→21:30)
[2018-12-28 07:21] VITALS: BP 142/82
[2018-12-28] MEDS: INSULIN GLARGINE 100 UNITS/ML, PEN SQ-INSULIN SCH ×2 (08:20→21:31)
[2018-12-28] MEDS: HYDROCHLOROTHIAZIDE 12.5 MG CAPSULE PO SCH (08:21)
[2018-12-28] MEDS: LOSARTAN 50MG TABLET PO SCH (08:21)
[2018-12-28] MEDS: SODIUM CHLORIDE FLUSH 10ML SYR IVF SCH ×2 (08:21→21:31)
[2018-12-28] MEDS: ASPIRIN 81 MG TABLET EC PO SCH (08:21)
[2018-12-28] MEDS: AMLODIPINE 10 MG TAB PO SCH (08:21)
[2018-12-28 13:29] VITALS: BP 145/79
[2018-12-28] MEDS: VANCOMYCIN 1,800 MG in SODIUM CHLORIDE 0.9% 250 ML IV SCH (14:25)
[2018-12-28] MEDS: ENOXAPARIN 40 MG/0.4 ML SQ SCH (16:45)
[2018-12-28 19:16] VITALS: BP_SYST 120; BP_SYST 144; BP_DIAS 78; BP_DIAS 79
[2018-12-28] MEDS: ATORVASTATIN 40 MG TABLET PO SCH (21:30)
[2018-12-29 00:34] VITALS: BP 124/76
[2018-12-29] MEDS: PIPERACILLIN/TAZO/PMX 3.375GM 50 ML IV SCH ×4 (04:37→23:04)
[2018-12-29] MEDS: HYDROcodone/APAP 10/325 MG TABLET PO PRN ×4 (05:11→23:04)
[2018-12-29 05:47] LABS: ANION GAP 8 mmol/L (5-15); BASOPHILS # (AUTO) 0.04 x10^3/uL (0-0.1); BASOPHILS % (AUTO) 1 % (0-1); CALCIUM 8.8 mg/dL (8.5-10.1); CHLORIDE 106 mmol/L (98-107); EOSINOPHILS # (AUTO) 0.06 x10^3/uL (0-0.4); EOSINOPHILS % (AUTO) 1 % (1-7); LYMPHOCYTES # (AUTO) 1.76 x10^3/uL (1-3.4); LYMPHOCYTES % (AUTO) 38 % (22-44); MD NO; MEAN CORPUSCULAR HEMOGLOBIN 29.7 pg (27.5-34.5); MEAN CORPUSCULAR HGB CONC 33.2 g/dL (33.2-36.2); MEAN CORPUSCULAR VOLUME 89.5 fL (81-97); MEAN PLATELET VOLUME 9.4 fL (7.4-10.4); MONOCYTES # (AUTO) 0.47 x10^3/uL (0.2-0.8); MONOCYTES % (AUTO) 10 % (2-9); NEUTROPHILS # (AUTO) 2.35 x10^3/uL (1.8-6.8); NEUTROPHILS % (AUTO) 50 % (42-75); PLATELET COUNT 115 x10^3/uL (130-400); RED BLOOD COUNT 4.88 x10^6/uL (4.38-5.82); RED CELL DISTRIBUTION WIDTH 14.1 % (9.4-14.8)
[2018-12-29 05:48] LABS: CREATININE 0.89 mg/dL (0.7-1.3)
[2018-12-29] MEDS: METOPROLOL TARTRATE 25 MG TABLET PO SCH ×2 (06:00→17:08)
[2018-12-29 07:01] VITALS: BP 135/82
[2018-12-29] MEDS: HYDROCHLOROTHIAZIDE 12.5 MG CAPSULE PO SCH (08:25)
[2018-12-29] MEDS: VANCOMYCIN 1,800 MG in SODIUM CHLORIDE 0.9% 250 ML IV SCH (08:25)
[2018-12-29] MEDS: AMLODIPINE 10 MG TAB PO SCH (08:26)
[2018-12-29] MEDS: ASPIRIN 81 MG TABLET EC PO SCH (08:26)
[2018-12-29] MEDS: LOSARTAN 50MG TABLET PO SCH (08:26)
[2018-12-29] MEDS: INSULIN LISPRO 100 UNITS/ML, PEN SQ-INSULIN SCH ×4 (08:26→20:24)
[2018-12-29] MEDS: SODIUM CHLORIDE FLUSH 10ML SYR IVF SCH ×2 (08:27→20:23)
[2018-12-29] MEDS: INSULIN GLARGINE 100 UNITS/ML, PEN SQ-INSULIN SCH ×2 (08:27→20:24)
[2018-12-29 13:29] VITALS: BP 134/86
[2018-12-29 13:58] VITALS: BP 149/77
[2018-12-29] MEDS: MECLIZINE 25 MG TABLET PO SCH ×2 (16:19→20:22)
[2018-12-29] MEDS: ENOXAPARIN 40 MG/0.4 ML SQ SCH (16:19)
[2018-12-29] MEDS: CIPROFLOXACIN DEXAMETHASONE EAR SUSP 7.5ML EACH EAR SCH ×2 (16:19→23:04)
[2018-12-29 19:02] VITALS: BP 149/77
[2018-12-29] MEDS: ATORVASTATIN 40 MG TABLET PO SCH (20:22)
[2018-12-30 02:23] VITALS: BP 137/73
[2018-12-30] MEDS: VANCOMYCIN 1,800 MG in SODIUM CHLORIDE 0.9% 250 ML IV SCH ×2 (02:56→20:00)
[2018-12-30] MEDS: PIPERACILLIN/TAZO/PMX 3.375GM 50 ML IV SCH ×4 (04:37→22:57)
[2018-12-30] MEDS: CIPROFLOXACIN DEXAMETHASONE EAR SUSP 7.5ML EACH EAR SCH ×4 (05:13→22:58)
[2018-12-30] MEDS: METOPROLOL TARTRATE 25 MG TABLET PO SCH ×3 (05:13→17:10)
[2018-12-30] MEDS: HYDROcodone/APAP 10/325 MG TABLET PO PRN ×4 (05:14→22:59)
[2018-12-30 05:15] VITALS: BP 144/77
[2018-12-30 06:29] VITALS: BP 146/87
[2018-12-30 07:42] LABS: ANION GAP 6 mmol/L (5-15); CALCIUM 8.7 mg/dL (8.5-10.1); CHLORIDE 108 mmol/L (98-107)
[2018-12-30 07:53] LABS: BASOPHILS # (AUTO) 0.02 x10^3/uL (0-0.1); BASOPHILS % (AUTO) 1 % (0-1); EOSINOPHILS # (AUTO) 0.05 x10^3/uL (0-0.4); EOSINOPHILS % (AUTO) 1 % (1-7); LYMPHOCYTES # (AUTO) 1.74 x10^3/uL (1-3.4); LYMPHOCYTES % (AUTO) 44 % (22-44); MD NO; MEAN CORPUSCULAR HEMOGLOBIN 28.7 pg (27.5-34.5); MEAN CORPUSCULAR HGB CONC 32.6 g/dL (33.2-36.2); MEAN CORPUSCULAR VOLUME 88.1 fL (81-97); MEAN PLATELET VOLUME 9.4 fL (7.4-10.4); MONOCYTES # (AUTO) 0.42 x10^3/uL (0.2-0.8); MONOCYTES % (AUTO) 11 % (2-9); NEUTROPHILS # (AUTO) 1.72 x10^3/uL (1.8-6.8); NEUTROPHILS % (AUTO) 44 % (42-75); PLATELET COUNT 111 x10^3/uL (130-400); RED BLOOD COUNT 4.73 x10^6/uL (4.38-5.82); RED CELL DISTRIBUTION WIDTH 14.4 % (9.4-14.8)
[2018-12-30] MEDS: INSULIN LISPRO 100 UNITS/ML, PEN SQ-INSULIN SCH ×4 (08:16→20:15)
[2018-12-30] MEDS: MECLIZINE 25 MG TABLET PO SCH ×3 (08:17→20:15)
[2018-12-30] MEDS: LOSARTAN 50MG TABLET PO SCH (08:17)
[2018-12-30] MEDS: AMLODIPINE 10 MG TAB PO SCH (08:17)
[2018-12-30] MEDS: HYDROCHLOROTHIAZIDE 12.5 MG CAPSULE PO SCH (08:17)
[2018-12-30] MEDS: ASPIRIN 81 MG TABLET EC PO SCH (08:18)
[2018-12-30] MEDS: SODIUM CHLORIDE FLUSH 10ML SYR IVF SCH ×2 (08:19→20:16)
[2018-12-30] MEDS: INSULIN GLARGINE 100 UNITS/ML, PEN SQ-INSULIN SCH ×2 (08:19→20:14)
[2018-12-30 12:15] VITALS: BP 131/70
[2018-12-30] MEDS ORDERED: VANCOMYCIN 1,800 MG in SODIUM CHLORIDE 0.9% 250 ML IV SCH (15:00)
[2018-12-30] MEDS: ENOXAPARIN 40 MG/0.4 ML SQ SCH (16:00)
[2018-12-30 19:01] VITALS: BP 124/83
[2018-12-30] MEDS: ATORVASTATIN 40 MG TABLET PO SCH (20:15)
[2018-12-31] VITALS (7 sets, daily range): BP systolic 124–166; BP diastolic 56–84
[2018-12-31] MEDS: MORPHINE SULFATE 4 MG/ML, 1ML IVPush PRN ×3 (02:38→21:37)
[2018-12-31] MEDS: PIPERACILLIN/TAZO/PMX 3.375GM 50 ML IV SCH ×4 (04:42→23:57)
[2018-12-31] MEDS: CIPROFLOXACIN DEXAMETHASONE EAR SUSP 7.5ML EACH EAR SCH ×4 (04:42→23:57)
[2018-12-31 05:23] LABS: BASOPHILS # (AUTO) 0.04 x10^3/uL (0-0.1); BASOPHILS % (AUTO) 1 % (0-1); EOSINOPHILS # (AUTO) 0.07 x10^3/uL (0-0.4); EOSINOPHILS % (AUTO) 2 % (1-7); LYMPHOCYTES # (AUTO) 1.97 x10^3/uL (1-3.4); LYMPHOCYTES % (AUTO) 43 % (22-44); MD NO; MEAN CORPUSCULAR HEMOGLOBIN 29.2 pg (27.5-34.5); MEAN CORPUSCULAR VOLUME 88.5 fL (81-97); MEAN PLATELET VOLUME 9.2 fL (7.4-10.4); MONOCYTES # (AUTO) 0.45 x10^3/uL (0.2-0.8); MONOCYTES % (AUTO) 10 % (2-9); NEUTROPHILS # (AUTO) 2.01 x10^3/uL (1.8-6.8); NEUTROPHILS % (AUTO) 44 % (42-75); PLATELET COUNT 121 x10^3/uL (130-400); RED BLOOD COUNT 4.81 x10^6/uL (4.38-5.82); RED CELL DISTRIBUTION WIDTH 14.4 % (9.4-14.8)
[2018-12-31] MEDS: HYDROcodone/APAP 10/325 MG TABLET PO PRN ×3 (05:26→18:04)
[2018-12-31 05:35] LABS: ANION GAP 6 mmol/L (5-15); CALCIUM 8.7 mg/dL (8.5-10.1); CHLORIDE 107 mmol/L (98-107)
[2018-12-31 05:37] LABS: CREATININE 0.77 mg/dL (0.7-1.3)
[2018-12-31] MEDS: METOPROLOL TARTRATE 25 MG TABLET PO SCH ×2 (06:00→18:05)
[2018-12-31] MEDS: VANCOMYCIN 1,800 MG in SODIUM CHLORIDE 0.9% 250 ML IV SCH ×2 (08:22→20:16)
[2018-12-31] MEDS: INSULIN LISPRO 100 UNITS/ML, PEN SQ-INSULIN SCH ×4 (08:23→21:34)
[2018-12-31] MEDS: ASPIRIN 81 MG TABLET EC PO SCH (10:00)
[2018-12-31] MEDS: HYDROCHLOROTHIAZIDE 12.5 MG CAPSULE PO SCH (10:00)
[2018-12-31] MEDS: INSULIN GLARGINE 100 UNITS/ML, PEN SQ-INSULIN SCH ×2 (10:00→21:33)
[2018-12-31] MEDS: AMLODIPINE 10 MG TAB PO SCH (10:00)
[2018-12-31] MEDS: LOSARTAN 50MG TABLET PO SCH (10:00)
[2018-12-31] MEDS: MECLIZINE 25 MG TABLET PO SCH ×3 (10:00→21:34)
[2018-12-31] MEDS: SODIUM CHLORIDE FLUSH 10ML SYR IVF SCH ×2 (10:01→20:16)
[2018-12-31] MEDS: ENOXAPARIN 40 MG/0.4 ML SQ SCH (17:00)
[2018-12-31] MEDS: ATORVASTATIN 40 MG TABLET PO SCH (21:34)
[2018-12-31] MEDS: LACTOBACILLUS CHEW TABLET PO SCH (21:34)
[2019-01-01] MEDS: HYDROcodone/APAP 10/325 MG TABLET PO PRN ×3 (00:07→11:50)
[2019-01-01 01:21] VITALS: BP 139/77
[2019-01-01] MEDS: MORPHINE SULFATE 4 MG/ML, 1ML IVPush PRN (02:39)
[2019-01-01 05:32] VITALS: BP 144/77
[2019-01-01] MEDS: METOPROLOL TARTRATE 25 MG TABLET PO SCH (05:35)
[2019-01-01] MEDS: CIPROFLOXACIN DEXAMETHASONE EAR SUSP 7.5ML EACH EAR SCH ×2 (05:35→11:03)
[2019-01-01] MEDS: PIPERACILLIN/TAZO/PMX 3.375GM 50 ML IV SCH ×2 (05:35→11:49)
[2019-01-01 05:46] LABS: BASOPHILS # (AUTO) 0.03 x10^3/uL (0-0.1); BASOPHILS % (AUTO) 1 % (0-1); EOSINOPHILS # (AUTO) 0.08 x10^3/uL (0-0.4); EOSINOPHILS % (AUTO) 2 % (1-7); LYMPHOCYTES % (AUTO) 41 % (22-44); MD NO; MEAN CORPUSCULAR HEMOGLOBIN 29.7 pg (27.5-34.5); MEAN CORPUSCULAR HGB CONC 33.1 g/dL (33.2-36.2); MEAN CORPUSCULAR VOLUME 89.7 fL (81-97); MEAN PLATELET VOLUME 9.4 fL (7.4-10.4); MONOCYTES # (AUTO) 0.53 x10^3/uL (0.2-0.8); MONOCYTES % (AUTO) 10 % (2-9); NEUTROPHILS # (AUTO) 2.35 x10^3/uL (1.8-6.8); NEUTROPHILS % (AUTO) 46 % (42-75); PLATELET COUNT 123 x10^3/uL (130-400); RED BLOOD COUNT 4.88 x10^6/uL (4.38-5.82); RED CELL DISTRIBUTION WIDTH 14.4 % (9.4-14.8)
[2019-01-01 05:55] LABS: CHLORIDE 110 mmol/L (98-107)
[2019-01-01 06:01] LABS: ALANINE AMINOTRANSFERASE 37 U/L (12-78); ALBUMIN 3.7 g/dL (3.4-5.0); ALKALINE PHOSPHATASE 99 U/L (45-117); ANION GAP 6 mmol/L (5-15); BILIRUBIN,TOTAL 0.3 mg/dL (0.2-1.0); CALCIUM 8.9 mg/dL (8.5-10.1); CREATININE 0.92 mg/dL (0.7-1.3); TOTAL PROTEIN 6.8 g/dL (6.4-8.2)
[2019-01-01] MEDS: INSULIN LISPRO 100 UNITS/ML, PEN SQ-INSULIN SCH ×2 (07:00→11:03)
[2019-01-01] MEDS: VANCOMYCIN 1,800 MG in SODIUM CHLORIDE 0.9% 250 ML IV SCH (08:02)
[2019-01-01 08:21] VITALS: BP 169/91
[2019-01-01] MEDS: SODIUM CHLORIDE FLUSH 10ML SYR IVF SCH (09:00)
[2019-01-01] MEDS: AMLODIPINE 10 MG TAB PO SCH (09:45)
[2019-01-01] MEDS: LOSARTAN 50MG TABLET PO SCH (09:45)
[2019-01-01] MEDS: ASPIRIN 81 MG TABLET EC PO SCH (09:45)
[2019-01-01] MEDS: INSULIN GLARGINE 100 UNITS/ML, PEN SQ-INSULIN SCH (09:46)
[2019-01-01] MEDS: LACTOBACILLUS CHEW TABLET PO SCH (09:46)
[2019-01-01] MEDS: HYDROCHLOROTHIAZIDE 12.5 MG CAPSULE PO SCH (09:46)
[2019-01-01] MEDS: MECLIZINE 25 MG TABLET PO SCH (09:47)
[2019-01-01 14:56] VITALS: BP 144/68
[2019-01-01] MEDS ORDERED: INSU100V8 SQ (16:01)
[2019-01-01] MEDS ORDERED: LACT1TAB13 PO (16:01)
[2019-01-01] MEDS ORDERED: CIPR7.5D EACH EAR (16:01)
[2019-01-01] MEDS ORDERED: AMOX1TAB12 PO (16:01)
[2019-01-01] MEDS ORDERED: INSU100I11 SQ-INSULIN (16:01)
== END 2019-01-01 16:53 | disposition home or self-care (01) | DRG 303 ==
LOC: ED 10:04 → EDIP 11:59 → 5SO 13:22 → 3NE 12-29 13:41 → DCLOUNGE 01-01 16:41
PROVIDERS: ADMIT Hospitalist; ATTEND Internal Medicine
DX: I25.119 Atherosclerotic heart disease of native coronary artery with unspecified angina pectoris (principal); H70.002 Acute mastoiditis without complications, left ear; E11.65 Type 2 diabetes mellitus with hyperglycemia; E66.9 Obesity, unspecified; Z68.36 Body mass index [BMI] 36.0-36.9, adult; B96.81 Helicobacter pylori [H. pylori] as the cause of diseases classified elsewhere; E78.5 Hyperlipidemia, unspecified; E83.42 Hypomagnesemia; E87.6 Hypokalemia; H70.12 Chronic mastoiditis, left ear; I10 Essential (primary) hypertension; K21.9 Gastro-esophageal reflux disease without esophagitis; Z86.19 Personal history of other infectious and parasitic diseases; Z88.5 Allergy status to narcotic agent; Z88.8 Allergy status to other drugs, medicaments and biological substances; Z87.891 Personal history of nicotine dependence
CPT/HCPCS: 36415; 70450; 71045; 78452; 80048; 80053; 80061; 80202; 82040; 82962; 83735; 84100; 84443; 84484; 85025; 87040; 93005; 93017; 96374; 99285; G0378; J1650; J2543; J2785; J3370; J3480; A9502; C9898; J1815; J2270; J3475; J7040; J7050; J7120

== ENCOUNTER 2019-01-15 15:29 | Emergency (ER) | payer SELFPAY ==
[~2019-01-15] VITALS: Ht 170.2 cm; Wt 101.4 kg
[2019-01-15 17:39] VITALS: BP 123/69
== END 2019-01-15 17:52 | disposition home or self-care (01) ==
LOC: ED 17:46
DX: R07.2 Precordial pain (principal); M79.18 Myalgia, other site; E87.6 Hypokalemia; E78.5 Hyperlipidemia, unspecified; I10 Essential (primary) hypertension; K21.9 Gastro-esophageal reflux disease without esophagitis; I25.10 Atherosclerotic heart disease of native coronary artery without angina pectoris; E11.9 Type 2 diabetes mellitus without complications; Z90.49 Acquired absence of other specified parts of digestive tract
CPT/HCPCS: 36415; 80048; 83735; 84484; 93005; 96374; 96375; 99284; J2060; J2270

== ENCOUNTER 2019-01-18 13:52 | Emergency (ER) | payer MEDICAID ==
[~2019-01-18] VITALS: Ht 167.6 cm; Wt 100.0 kg
[~2019-01-18 13:52] MED LIST changes: +AMOX1TAB12 PO; +CIPR7.5D EACH EAR; +LACT1TAB13 PO
[2019-01-18] MEDS ORDERED: LORazepam 2 MG/ML, 1ML IVPush ONE (14:30)
[2019-01-18] MEDS ORDERED: SODIUM CHLORIDE FLUSH 10ML SYR IVF ONE (14:30)
[2019-01-18] MEDS ORDERED: LORazepam 2 MG/ML, 1ML ONE (14:39)
--- NOTE | 2019-01-18 14:53 | NUR ---
PT ON HEART MONITOR, BP CUFF, PULSE OX. VSS/UPDATED IN COMPUTER. IV PLACED, ATIVAN GIVEN PER ERP ORDER. PT RESTING/EYES CLOSED AT THIS TIME. CALL LIGHT WITHIN REACH.
[2019-01-18 15:01] LABS: ALBUMIN 3.6 g/dL (3.4-5.0); ANION GAP 8 mmol/L (5-15); CALCIUM 8.8 mg/dL (8.5-10.1); CHLORIDE 111 mmol/L (98-107); CREATININE 0.84 mg/dL (0.7-1.3)
[2019-01-18 15:02] LABS: BASOPHILS # (AUTO) 0.03 x10^3/uL (0-0.1); BASOPHILS % (AUTO) 1 % (0-1); EOSINOPHILS # (AUTO) 0.01 x10^3/uL (0-0.4); EOSINOPHILS % (AUTO) 0 % (1-7); LYMPHOCYTES # (AUTO) 1.27 x10^3/uL (1-3.4); LYMPHOCYTES % (AUTO) 21 % (22-44); MD NO; MEAN CORPUSCULAR HEMOGLOBIN 28.6 pg (27.5-34.5); MEAN CORPUSCULAR VOLUME 86.6 fL (81-97); MEAN PLATELET VOLUME 8.8 fL (7.4-10.4); MONOCYTES # (AUTO) 0.43 x10^3/uL (0.2-0.8); MONOCYTES % (AUTO) 7 % (2-9); NEUTROPHILS # (AUTO) 4.22 x10^3/uL (1.8-6.8); NEUTROPHILS % (AUTO) 71 % (42-75); PLATELET COUNT 143 x10^3/uL (130-400); RED BLOOD COUNT 5.05 x10^6/uL (4.38-5.82); RED CELL DISTRIBUTION WIDTH 14.9 % (9.4-14.8)
[2019-01-18 15:04] LABS: TROPONIN I < 0.015 ng/mL (0.000-0.045)
--- NOTE | 2019-01-18 15:21 | NUR ---
ALL RESULTS BACK, PT FOR RECHECK. PT STATES ATIVAN DID NOT HELP, STATES PAIN IS WORSE /10.
[2019-01-18] MEDS ORDERED: ONDANSETRON 2MG/ML, 2ML IVPush ONE (16:00)
[2019-01-18] MEDS ORDERED: MORPHINE SULFATE 4 MG/ML, 1ML IVPush PRN (16:00)
[2019-01-18] MEDS ORDERED: MORPHINE SULFATE 4 MG/ML, 1ML ONE (16:21)
[2019-01-18] MEDS ORDERED: ONDANSETRON 2MG/ML, 2ML ONE (16:21)
--- NOTE | 2019-01-18 16:25 | NUR ---
PT REMEDICATED FOR 8/10 L CHEST, L ARM, L LEG PAIN RATED 8/10. VSS/UPDATED IN COMPUTER.
[2019-01-18] MEDS ORDERED: KETAMINE 10 MG/ML, 20ML IV ONE (18:00)
[2019-01-18] MEDS ORDERED: KETAMINE 10 MG/ML, 20ML ONE (18:13)
--- NOTE | 2019-01-18 18:23 | NUR ---
KETAMINE GIVEN SLOW/DILUTED IVP PER ERP ORDER FOR 610 PAIN CONTROL. FAMILY AT BS, CALL LIGHT WITHIN REACH.
--- NOTE | 2019-01-18 18:54 | NUR ---
PT STATES PAIN A LITTLE BIT BETTER, NOW RATING PAIN AT 4/10.
[2019-01-18 19:05] VITALS: BP 139/76
[2019-01-30] MEDS ORDERED: AMLO10TA8 PO (17:59)
[2019-02-24] MEDS ORDERED: METH4TAB6 PO (11:23)
[2019-02-24] MEDS ORDERED: GABA-826 PO (11:23)
[2019-02-24] MEDS ORDERED: ISOS30TA8 PO (11:26)
== END 2019-01-18 19:09 | disposition home or self-care (01) ==
LOC: ED 16:33
DX: G89.29 Other chronic pain (principal); R07.89 Other chest pain; I10 Essential (primary) hypertension; E11.65 Type 2 diabetes mellitus with hyperglycemia
CPT/HCPCS: 36415; 71045; 80048; 82040; 83880; 84484; 85025; 93005; 96374; 96375; 99284; J2060; J2270; J2405

== ENCOUNTER 2019-01-30 17:39 | Emergency (ER) | payer SELFPAY ==
[~2019-01-30] VITALS: Ht 170.2 cm; Wt 103.6 kg
[2019-01-30 18:35] VITALS: BP 157/75
== END 2019-01-30 20:02 | disposition home or self-care (01) ==
LOC: ED 19:02
DX: R07.89 Other chest pain (principal); I10 Essential (primary) hypertension; R42 Dizziness and giddiness; R51 Headache; E11.9 Type 2 diabetes mellitus without complications
CPT/HCPCS: 36415; 71045; 80053; 84484; 85025; 93005; 99284

== ENCOUNTER 2019-04-28 17:28 | Observation (INO) | payer MEDICAID ==
[~2019-04-28] VITALS: Ht 170.2 cm; Wt 103.5 kg
[~2019-04-28 17:28] MED LIST changes: +GABA-826 PO; +ISOS30TA8 PO; +METH4TAB6 PO
[2019-04-28] MEDS ORDERED: ONDANSETRON 2MG/ML, 2ML IVPush ONE (18:30)
[2019-04-28] MEDS ORDERED: SODIUM CHLORIDE FLUSH 10ML SYR IVF ONE (18:30)
[2019-04-28] MEDS ORDERED: NITROGLYCERIN SINGLE TAB 0.4 MG SL PRN (18:30)
[2019-04-28] MEDS ORDERED: ONDANSETRON 2MG/ML, 2ML ONE (18:35)
[2019-04-28] MEDS ORDERED: MORPHINE SULFATE 4 MG/ML, 1ML ONE (18:35)
[2019-04-28] MEDS ORDERED: NITROGLYCERIN SINGLE TAB 0.4 MG SL ONE (18:35)
[2019-04-28 18:41] LABS: BASOPHILS # (AUTO) 0.02 x10^3/uL (0-0.1); BASOPHILS % (AUTO) 1 % (0-1); EOSINOPHILS # (AUTO) 0.02 x10^3/uL (0-0.4); EOSINOPHILS % (AUTO) 1 % (1-7); LYMPHOCYTES % (AUTO) 34 % (22-44); MD NO; MEAN CORPUSCULAR HEMOGLOBIN 28.9 pg (27.5-34.5); MEAN CORPUSCULAR HGB CONC 33.6 g/dL (33.2-36.2); MEAN CORPUSCULAR VOLUME 86.2 fL (81-97); MONOCYTES # (AUTO) 0.44 x10^3/uL (0.2-0.8); MONOCYTES % (AUTO) 8 % (2-9); NEUTROPHILS # (AUTO) 3.08 x10^3/uL (1.8-6.8); NEUTROPHILS % (AUTO) 57 % (42-75); PLATELET COUNT 136 x10^3/uL (130-400); RED BLOOD COUNT 4.99 x10^6/uL (4.38-5.82); RED CELL DISTRIBUTION WIDTH 15.5 % (9.4-14.8)
[2019-04-28] MEDS: MORPHINE SULFATE 4 MG/ML, 1ML IVPush PRN ×2 (18:43→20:54)
[2019-04-28 18:52] LABS: ALANINE AMINOTRANSFERASE 50 U/L (12-78); ALBUMIN 3.5 g/dL (3.4-5.0); ANION GAP 9 mmol/L (5-15); CALCIUM 8.3 mg/dL (8.5-10.1); CHLORIDE 107 mmol/L (98-107); CREATININE 1.04 mg/dL (0.7-1.3)
[2019-04-28 18:57] LABS: ALKALINE PHOSPHATASE 117 U/L (45-117); BILIRUBIN,TOTAL 0.3 mg/dL (0.2-1.0); TOTAL PROTEIN 6.6 g/dL (6.4-8.2); TROPONIN I < 0.015 ng/mL (0.000-0.045)
--- NOTE | 2019-04-28 18:58 | NUR ---
PT HAS CO CHEST DISCOMFORT RADIATING TO LEFT ARM, INTERMITTENT AND SOB SINCE YESTERDAY. PT TOOK NITRO YESTERDAY AND RELIVED SOME. NO RELIEF TODAY SO DECIDED TO COME IN. PT HAS HX OF CVA W WEAKNESS TO LEFT ARM. CLINICAL ASSISTANT PROFESSOR APPLIED, VS STABLE. IV ESTABLISHED AND MEDICATED PER ORDERS. SON ASSISTING W TRANSLATIONS
[2019-04-28] MEDS ORDERED: ASPIRIN 81 MG TABLET CHEW PO ONE (19:30)
[2019-04-28] MEDS ORDERED: ASPIRIN 81 MG TABLET EC ONE (19:41)
[2019-04-28] MEDS ORDERED: ASPIRIN 81 MG TABLET CHEW ONE (19:44)
--- NOTE | 2019-04-28 19:45 | NUR ---
PT STATES CHEST PAIN IS RELIEVED, BUT W SOME DISCOMFORT. MEDICATED W ASA
[2019-04-28] MEDS ORDERED: SODIUM CHLORIDE FLUSH 10ML SYR IVF PRN (20:30)
--- NOTE | 2019-04-28 20:51 | NUR ---
REPORT TO AJ
[2019-04-28 21:30] VITALS: BP 124/65
[2019-04-28] MEDS ORDERED: NITROGLYCERIN 0.4 MG BOTTLE (25 TABS) SL PRN (21:30)
[2019-04-28] MEDS ORDERED: LIDODERM 5% PATCH TD PRN (21:30)
[2019-04-28] MEDS ORDERED: ENOXAPARIN 40 MG/0.4 ML SQ SCH (21:30)
[2019-04-28] MEDS ORDERED: ATORVASTATIN 40 MG TABLET PO SCH (21:30)
[2019-04-28] MEDS ORDERED: ONDANSETRON 2MG/ML, 2ML IVPush PRN (21:30)
[2019-04-28] MEDS ORDERED: ENALAPRILAT 1.25 MG/ML, 2ML IVPush PRN (21:30)
[2019-04-28] MEDS: GABAPENTIN 100 MG CAPSULE PO SCH (21:30)
[2019-04-28] MEDS ORDERED: ATORVASTATIN 40 MG TABLET ONE (21:39)
[2019-04-28] MEDS ORDERED: ENOXAPARIN 40 MG/0.4 ML ONE (21:40)
[2019-04-28] MEDS ORDERED: HYDROcodone/APAP 10/325 MG TABLET ONE (21:40)
[2019-04-28] MEDS: HYDROcodone/APAP 10/325 MG TABLET PO PRN (21:45)
[2019-04-28] MEDS: ISOSORBIDE MONONITRATE ER 30 MG TABLET PO SCH (22:02)
[2019-04-28] MEDS: INSULIN GLARGINE 100 UNITS/ML, PEN SQ-INSULIN SCH (22:03)
[2019-04-28 22:04] LABS: HEMOGLOBIN A1C 8.8 % (4.2-6.3)
[2019-04-28] MEDS ORDERED: FLU VACC QS2019-20 36MOS UP/PF 0.5 ML IM-VACC ONE (23:00)
[2019-04-29] MEDS: HYDROcodone/APAP 10/325 MG TABLET PO PRN ×4 (02:16→15:16)
[2019-04-29 02:22] VITALS: BP 128/77
[2019-04-29 02:26] LABS: CHOL/HDL RATIO 5.1; LDL/HDL RATIO 3.2 (0.5-3.0)
[2019-04-29 02:38] LABS: TROPONIN I < 0.015 ng/mL (0.000-0.045)
[2019-04-29 07:33] VITALS: BP 136/71
[2019-04-29] MEDS: INSULIN LISPRO 100 UNITS/ML, PEN SQ-INSULIN SCH ×3 (08:20→17:04)
[2019-04-29 08:23] LABS: TROPONIN I < 0.015 ng/mL (0.000-0.045)
[2019-04-29] MEDS: INSULIN GLARGINE 100 UNITS/ML, PEN SQ-INSULIN SCH (08:27)
[2019-04-29] MEDS: GABAPENTIN 100 MG CAPSULE PO SCH ×2 (08:28→17:03)
[2019-04-29] MEDS: OMEPRAZOLE 20 MG CAPSULE.DR PO SCH ×2 (08:28→17:17)
[2019-04-29] MEDS: ISOSORBIDE MONONITRATE ER 30 MG TABLET PO SCH (08:29)
[2019-04-29] MEDS ORDERED: AMLODIPINE 10 MG TAB PO SCH (09:00)
[2019-04-29] MEDS ORDERED: ASPIRIN 81 MG TABLET EC PO SCH (09:00)
[2019-04-29] MEDS ORDERED: LOSARTAN 50MG TABLET PO SCH (09:00)
[2019-04-29] MEDS ORDERED: HYDROCHLOROTHIAZIDE 12.5 MG CAPSULE PO SCH (09:00)
[2019-04-29] MEDS ORDERED: SENNA/DOCUSATE TABLET PO SCH (09:00)
[2019-04-29] MEDS ORDERED: LIDODERM REMOVE PATCH NOTE XX SCH (09:30)
[2019-04-29 14:10] VITALS: BP 137/68
[2019-04-29] MEDS ORDERED: ISOS30TA8 PO (16:11)
[2019-04-30] MEDS ORDERED: AMLODIPINE 10 MG TAB PO SCH (09:00)
== END 2019-04-29 17:20 | disposition home or self-care (01) ==
LOC: MERGE 17:28 → EDBD 17:28 → ED 20:36 → EDIP 20:37 → INTOOBSV 20:37 → 5SO 21:35
PROVIDERS: ADMIT Family Medicine; ATTEND Family Medicine
DX: R07.9 Chest pain, unspecified (principal); I25.119 Atherosclerotic heart disease of native coronary artery with unspecified angina pectoris; I10 Essential (primary) hypertension; E66.9 Obesity, unspecified; Z68.37 Body mass index [BMI] 37.0-37.9, adult; E11.65 Type 2 diabetes mellitus with hyperglycemia; M54.5 Low back pain; G89.29 Other chronic pain; E78.5 Hyperlipidemia, unspecified; F11.20 Opioid dependence, uncomplicated; F17.210 Nicotine dependence, cigarettes, uncomplicated; F41.1 Generalized anxiety disorder
CPT/HCPCS: 36415; 70450; 71045; 80053; 80061; 82962; 83036; 83690; 84484; 85025; 90471; 90686; 93005; 96372; 96374; 96375; 99284; G0378; J1650; J1815; J2270; J2405

== ENCOUNTER 2019-05-11 00:39 | Emergency (ER) | payer MEDICAID ==
[2019-05-11] MEDS ORDERED: ONDANSETRON ODT 4 MG ONE (01:26)
[2019-05-11] MEDS ORDERED: MAALOX/HYOSCYAMINE/LIDOCAINE 45 ML BTL ONE (01:27)
--- NOTE | 2019-05-11 01:47 | NUR ---
AMBULATORY TO RESTROOM. URINE COLLECTED & SENT. MEDS PER MAR. REF DOWN TIME FORMS.
[2019-05-11 02:18] LABS: BASOPHILS # (AUTO) 0.02 x10^3/uL (0-0.1); BASOPHILS % (AUTO) 1 % (0-1); EOSINOPHILS # (AUTO) 0.04 x10^3/uL (0-0.4); EOSINOPHILS % (AUTO) 1 % (1-7); LYMPHOCYTES % (AUTO) 38 % (22-44); MD NO; MEAN CORPUSCULAR HEMOGLOBIN 28.3 pg (27.5-34.5); MEAN CORPUSCULAR HGB CONC 33.1 g/dL (33.2-36.2); MEAN CORPUSCULAR VOLUME 85.5 fL (81-97); MEAN PLATELET VOLUME 8.8 fL (7.4-10.4); MONOCYTES # (AUTO) 0.47 x10^3/uL (0.2-0.8); MONOCYTES % (AUTO) 11 % (2-9); NEUTROPHILS # (AUTO) 2.27 x10^3/uL (1.8-6.8); NEUTROPHILS % (AUTO) 50 % (42-75); PLATELET COUNT 136 x10^3/uL (130-400); RED BLOOD COUNT 5.04 x10^6/uL (4.38-5.82); RED CELL DISTRIBUTION WIDTH 14.8 % (9.4-14.8)
[2019-05-11 02:30] LABS: ALANINE AMINOTRANSFERASE 52 U/L (12-78); ALBUMIN 3.6 g/dL (3.4-5.0); ANION GAP 6 mmol/L (5-15); CALCIUM 8.7 mg/dL (8.5-10.1); CHLORIDE 104 mmol/L (98-107); CREATININE 0.88 mg/dL (0.7-1.3)
[2019-05-11 02:35] LABS: ALKALINE PHOSPHATASE 130 U/L (45-117); BILIRUBIN,TOTAL 0.3 mg/dL (0.2-1.0); TROPONIN I < 0.015 ng/mL (0.000-0.045)
[2019-05-11] MEDS ORDERED: HYDROcodone/APAP 5/325 TABLET PO ONE (03:00)
[2019-05-11] MEDS ORDERED: HYDROcodone/APAP 5/325 TABLET ONE (03:03)
[2019-05-11 03:10] VITALS: BP 168/78
[2019-05-11 17:06] LABS: MICROSCOPIC NOT IND
[2019-05-11 17:07] LABS: CULTURE INDICATED? NO
== END 2019-05-11 03:12 | disposition home or self-care (01) ==
LOC: ED 03:03
DX: K29.00 Acute gastritis without bleeding (principal); I10 Essential (primary) hypertension; E11.65 Type 2 diabetes mellitus with hyperglycemia; I25.10 Atherosclerotic heart disease of native coronary artery without angina pectoris; K21.9 Gastro-esophageal reflux disease without esophagitis; E78.5 Hyperlipidemia, unspecified; F17.200 Nicotine dependence, unspecified, uncomplicated
CPT/HCPCS: 36415; 80053; 81003; 83690; 84484; 85025; 93005; 99284

== ENCOUNTER 2019-06-26 23:48 | Emergency (ER) | payer MEDICAID ==
[~2019-06-26] VITALS: Ht 167.6 cm; Wt 107.0 kg
[2019-06-27] MEDS ORDERED: SODIUM CHLORIDE FLUSH 10ML SYR IVF ONE (00:30)
[2019-06-27 01:18] LABS: BASOPHILS # (AUTO) 0.05 x10^3/uL (0-0.1); BASOPHILS % (AUTO) 1 % (0-1); EOSINOPHILS # (AUTO) 0.05 x10^3/uL (0-0.4); EOSINOPHILS % (AUTO) 1 % (1-7); LYMPHOCYTES # (AUTO) 2.03 x10^3/uL (1-3.4); LYMPHOCYTES % (AUTO) 31 % (22-44); MD NO; MEAN CORPUSCULAR VOLUME 84.9 fL (81-97); MEAN PLATELET VOLUME 9.6 fL (7.4-10.4); MONOCYTES % (AUTO) 9 % (2-9); NEUTROPHILS # (AUTO) 3.93 x10^3/uL (1.8-6.8); NEUTROPHILS % (AUTO) 59 % (42-75); PLATELET COUNT 145 x10^3/uL (130-400); RED CELL DISTRIBUTION WIDTH 15.3 % (9.4-14.8)
[2019-06-27 01:25] LABS: ALANINE AMINOTRANSFERASE 57 U/L (12-78); ALBUMIN 3.9 g/dL (3.4-5.0); ANION GAP 7 mmol/L (5-15); CALCIUM 9.6 mg/dL (8.5-10.1); CHLORIDE 103 mmol/L (98-107); CREATININE 1.09 mg/dL (0.7-1.3)
[2019-06-27 01:28] LABS: ALKALINE PHOSPHATASE 131 U/L (45-117); BILIRUBIN,TOTAL 0.3 mg/dL (0.2-1.0); TOTAL PROTEIN 7.5 g/dL (6.4-8.2)
--- NOTE | 2019-06-27 03:20 | NUR ---
pt to room from lobby
--- NOTE | 2019-06-27 03:23 | NUR ---
First contact w/ pt. Pt presents to ed c/o ULQ abd painxmultiple weeks. Pain worse after eating. Pt states "streaks" of potentially blood in stool. Denies any loose stools. Able to tolerate po intake. Denies sob. States pain "is always there, but worse when i eat." Monitoring applied. Vss. Call light within reach. Awaiting md assessment.
[2019-06-27 03:49] LABS: MICROSCOPIC NOT IND
--- NOTE | 2019-06-27 04:02 | NUR ---
Pt to ct. UA sent to lab.
[2019-06-27] MEDS ORDERED: ONDANSETRON 2MG/ML, 2ML ONE (04:13)
[2019-06-27] MEDS ORDERED: MORPHINE SULFATE 4 MG/ML, 1ML ONE ×2 (04:13→04:19)
[2019-06-27 04:16] LABS: CULTURE INDICATED? NO
--- NOTE | 2019-06-27 04:27 | NUR ---
Top of morphine glass bottle shattered and Razia IQBAL witnessed waste of morphine.
[2019-06-27] MEDS ORDERED: ONDANSETRON 2MG/ML, 2ML IVPush ONE (04:30)
[2019-06-27] MEDS ORDERED: MORPHINE SULFATE 4 MG/ML, 1ML IVPush ONE (04:30)
[2019-06-27] MEDS ORDERED: OMNIPAQUE 350 MG/ML, 100ML BOTTLE ONE (04:57)
--- NOTE | 2019-06-27 04:59 | NUR ---
ASSUMING CARE OF PT. FROM RASHEED BABCOCK AT THIS. AWAITING CT RESULTS.
[2019-06-27] MEDS ORDERED: MAALOX/HYOSCYAMINE/LIDOCAINE 45 ML BTL ONE (05:17)
[2019-06-27 05:21] VITALS: BP 147/67
[2019-06-27] MEDS ORDERED: MAALOX/HYOSCYAMINE/LIDOCAINE 45 ML BTL PO ONE (05:30)
== END 2019-06-27 06:09 | disposition home or self-care (01) ==
LOC: ED 06-27 06:03
DX: K29.00 Acute gastritis without bleeding (principal); I25.10 Atherosclerotic heart disease of native coronary artery without angina pectoris; I10 Essential (primary) hypertension; E78.5 Hyperlipidemia, unspecified; E11.9 Type 2 diabetes mellitus without complications; F17.200 Nicotine dependence, unspecified, uncomplicated; Z90.49 Acquired absence of other specified parts of digestive tract
CPT/HCPCS: 36415; 74177; 80053; 81003; 83690; 85025; 96374; 96375; 99284; J2270; J2405; Q9967

== ENCOUNTER 2019-07-01 20:19 | Emergency (ER) | payer MEDICAID ==
[~2019-07-01] VITALS: Ht 170.2 cm; Wt 109.5 kg
--- NOTE | 2019-07-01 21:43 | NUR ---
PT PRESENTING TO ER FOR LEFT SIDE ABD PAIN, HX OF REFLUX, STS PAIN WORSENS AFTER EATING. SEEN HERE 06/26 FOR SAME PRESCRIBED PRILOSEC, STS STILL HAVING PAIN. CONNECTED TO MONITORING, VSS, SLIGHT HTN, HX OF HTN. FAMILY AT BEDSIDE. ORDERS RECEIVED FROM MD. CALL LIGHT WITHIN REACH. BLANKET PROVIDED FOR COMFORT.
[2019-07-01] MEDS ORDERED: MAALOX/HYOSCYAMINE/LIDOCAINE 45 ML BTL ONE (21:46)
--- NOTE | 2019-07-01 21:59 | NUR ---
LABS COLLECTED AND SENT. PT MEDICATED PER MAR
[2019-07-01] MEDS ORDERED: SUCRALFATE 1 GM/10 ML UDC PO SCH (22:00)
[2019-07-01] MEDS ORDERED: MAALOX/HYOSCYAMINE/LIDOCAINE 45 ML BTL PO ONE (22:00)
[2019-07-01 22:04] LABS: BASOPHILS # (AUTO) 0.03 x10^3/uL (0-0.1); BASOPHILS % (AUTO) 1 % (0-1); EOSINOPHILS # (AUTO) 0.03 x10^3/uL (0-0.4); EOSINOPHILS % (AUTO) 1 % (1-7); LYMPHOCYTES # (AUTO) 1.96 x10^3/uL (1-3.4); LYMPHOCYTES % (AUTO) 40 % (22-44); MD NO; MEAN CORPUSCULAR HEMOGLOBIN 27.7 pg (27.5-34.5); MEAN CORPUSCULAR HGB CONC 33.1 g/dL (33.2-36.2); MEAN CORPUSCULAR VOLUME 83.8 fL (81-97); MONOCYTES # (AUTO) 0.52 x10^3/uL (0.2-0.8); MONOCYTES % (AUTO) 11 % (2-9); NEUTROPHILS # (AUTO) 2.41 x10^3/uL (1.8-6.8); NEUTROPHILS % (AUTO) 49 % (42-75); PLATELET COUNT 120 x10^3/uL (130-400); RED BLOOD COUNT 5.03 x10^6/uL (4.38-5.82); RED CELL DISTRIBUTION WIDTH 14.9 % (9.4-14.8)
--- NOTE | 2019-07-01 22:05 | NUR ---
PT MEDICATED PER EMAR. RESTING ON GURNEY W/ FAMILY AT BEDSIDE. DENIES FURTHER NEEDS AT THIS TIME. CALL LIGHT IN REACH.
[2019-07-01 22:17] LABS: ALANINE AMINOTRANSFERASE 55 U/L (12-78); ALBUMIN 3.7 g/dL (3.4-5.0); ANION GAP 7 mmol/L (5-15); CHLORIDE 104 mmol/L (98-107)
[2019-07-01 22:19] LABS: ALKALINE PHOSPHATASE 110 U/L (45-117); BILIRUBIN,TOTAL 0.4 mg/dL (0.2-1.0); TOTAL PROTEIN 6.9 g/dL (6.4-8.2)
--- NOTE | 2019-07-01 22:35 | NUR ---
ALL RESULTS BACK. PT UP FOR RECHECK. PT STATES HE DOES NOT FEEL ANY BETTER SINCE LAST MED. PROVIDER UPDATED.
[2019-07-01 23:43] VITALS: BP 132/74
== END 2019-07-01 23:46 | disposition home or self-care (01) ==
LOC: ED 21:54
DX: R10.13 Epigastric pain (principal); G89.29 Other chronic pain; R10.12 Left upper quadrant pain; F17.200 Nicotine dependence, unspecified, uncomplicated; K21.9 Gastro-esophageal reflux disease without esophagitis; I25.10 Atherosclerotic heart disease of native coronary artery without angina pectoris; I10 Essential (primary) hypertension; E11.9 Type 2 diabetes mellitus without complications; E78.5 Hyperlipidemia, unspecified; Z90.49 Acquired absence of other specified parts of digestive tract
CPT/HCPCS: 36415; 80053; 83690; 85025; 99283

== ENCOUNTER 2019-08-03 22:41 | Emergency (ER) | payer MEDICAID, OTHER ==
[~2019-08-03] VITALS: Ht 167.6 cm; Wt 127.3 kg
[~2019-08-03 22:41] MED LIST changes: +SIMV20TA19 PO; -SIMV20TA3 PO
--- NOTE | 2019-08-03 22:55 | NUR ---
PT BIB EMS WITH C/O CHEST PAIN STARTING 2 HOURS AGO, REPRORTS PRESSURE ACROSS CHEST, ALSO "FEELS LIKE HEARTBURN", PT DENIES N/V. PT SON REPORTS HX OF STENT PLACEMENT. EMS REPORTS BS 271, HAS DIABETES. PT CONNECTED TO ALL MONITORING, CALL LIGHT WITHIN REACH, ALL SAFETY MEASURES IN PLACE.
[2019-08-03] MEDS ORDERED: IBUPROFEN 200 MG TABLET PO ONE (23:00)
[2019-08-03] MEDS ORDERED: DIAZEPAM 5 MG TABLET PO ONE (23:00)
[2019-08-03 23:10] LABS: BASOPHILS # (AUTO) 0.02 x10^3/uL (0-0.1); BASOPHILS % (AUTO) 1 % (0-1); EOSINOPHILS # (AUTO) 0.03 x10^3/uL (0-0.4); EOSINOPHILS % (AUTO) 1 % (1-7); LYMPHOCYTES # (AUTO) 1.78 x10^3/uL (1-3.4); LYMPHOCYTES % (AUTO) 37 % (22-44); MD NO; MEAN CORPUSCULAR HEMOGLOBIN 28.4 pg (27.5-34.5); MEAN CORPUSCULAR HGB CONC 34.4 g/dL (33.2-36.2); MEAN CORPUSCULAR VOLUME 82.6 fL (81-97); MEAN PLATELET VOLUME 9.3 fL (7.4-10.4); MONOCYTES # (AUTO) 0.38 x10^3/uL (0.2-0.8); MONOCYTES % (AUTO) 8 % (2-9); NEUTROPHILS # (AUTO) 2.64 x10^3/uL (1.8-6.8); NEUTROPHILS % (AUTO) 55 % (42-75); PLATELET COUNT 126 x10^3/uL (130-400); RED BLOOD COUNT 4.82 x10^6/uL (4.38-5.82); RED CELL DISTRIBUTION WIDTH 15.1 % (9.4-14.8)
[2019-08-03] MEDS ORDERED: DIAZEPAM 5 MG TABLET ONE (23:21)
[2019-08-03] MEDS ORDERED: IBUPROFEN 200 MG TABLET ONE (23:21)
[2019-08-03 23:22] LABS: ALANINE AMINOTRANSFERASE 73 U/L (12-78); ALBUMIN 3.5 g/dL (3.4-5.0); ANION GAP 12 mmol/L (5-15); CALCIUM 8.1 mg/dL (8.5-10.1); CHLORIDE 103 mmol/L (98-107); CREATININE 1.01 mg/dL (0.7-1.3)
[2019-08-03 23:24] LABS: ALKALINE PHOSPHATASE 141 U/L (45-117); BILIRUBIN,TOTAL 0.4 mg/dL (0.2-1.0)
[2019-08-04] MEDS ORDERED: SODIUM CHLORIDE 0.9% 1,000ML IVBOLUS ONE
[2019-08-04] MEDS ORDERED: SODIUM CHLORIDE FLUSH 10ML SYR IVF ONE
[2019-08-04 00:04] VITALS: BP 148/73
[2019-08-04] MEDS ORDERED: OXYcodone/APAP 5/325MG TABLET PO ONE (00:30)
[2019-08-04 00:44] LABS: MICROSCOPIC AUTO
[2019-08-04 00:46] LABS: CULTURE INDICATED? NO
[2019-08-04] MEDS ORDERED: OXYcodone/APAP 5/325MG TABLET ONE (00:54)
== END 2019-08-04 01:24 | disposition home or self-care (01) ==
LOC: ED 08-04 01:06
DX: S39.011A Strain of muscle, fascia and tendon of abdomen, initial encounter (principal); E11.65 Type 2 diabetes mellitus with hyperglycemia; K21.9 Gastro-esophageal reflux disease without esophagitis; E87.6 Hypokalemia; E78.5 Hyperlipidemia, unspecified; I11.9 Hypertensive heart disease without heart failure; Z90.49 Acquired absence of other specified parts of digestive tract; X58.XXXA Exposure to other specified factors, initial encounter; Y93.89 Activity, other specified; Y92.89 Other specified places as the place of occurrence of the external cause; Y99.8 Other external cause status
CPT/HCPCS: 36415; 74022; 80053; 81001; 83690; 85025; 96360; 99284; J7030

== ENCOUNTER 2019-09-15 19:45 | Emergency (ER) | payer SELFPAY ==
[~2019-09-15] VITALS: Ht 172.7 cm; Wt 100.0 kg
[2019-09-15] MEDS ORDERED: SODIUM CHLORIDE 0.9% 1,000 ML IV ONE (20:15)
[2019-09-15] MEDS ORDERED: ONDANSETRON 2MG/ML, 2ML IVPush ONE (20:30)
[2019-09-15] MEDS ORDERED: SODIUM CHLORIDE FLUSH 10ML SYR IVF ONE (20:30)
[2019-09-15 20:56] LABS: BASOPHILS # (AUTO) 0.02 x10^3/uL (0-0.1); BASOPHILS % (AUTO) 0 % (0-1); EOSINOPHILS # (AUTO) 0.03 x10^3/uL (0-0.4); EOSINOPHILS % (AUTO) 0 % (1-7); LYMPHOCYTES # (AUTO) 1.95 x10^3/uL (1-3.4); LYMPHOCYTES % (AUTO) 31 % (22-44); MD NO; MEAN CORPUSCULAR HEMOGLOBIN 27.4 pg (27.5-34.5); MEAN CORPUSCULAR HGB CONC 33.4 g/dL (33.2-36.2); MEAN PLATELET VOLUME 9.4 fL (7.4-10.4); MONOCYTES # (AUTO) 0.47 x10^3/uL (0.2-0.8); MONOCYTES % (AUTO) 8 % (2-9); NEUTROPHILS # (AUTO) 3.84 x10^3/uL (1.8-6.8); NEUTROPHILS % (AUTO) 61 % (42-75); PLATELET COUNT 139 x10^3/uL (130-400); RED BLOOD COUNT 5.32 x10^6/uL (4.38-5.82); RED CELL DISTRIBUTION WIDTH 15.4 % (9.4-14.8)
[2019-09-15 21:07] LABS: ALANINE AMINOTRANSFERASE 83 U/L (12-78); ALBUMIN 3.9 g/dL (3.4-5.0); ANION GAP 7 mmol/L (5-15); CHLORIDE 104 mmol/L (98-107); CREATININE 1.03 mg/dL (0.7-1.3)
[2019-09-15 21:09] LABS: ALKALINE PHOSPHATASE 109 U/L (45-117); BILIRUBIN,TOTAL 0.2 mg/dL (0.2-1.0); TOTAL PROTEIN 7.5 g/dL (6.4-8.2)
[2019-09-15] MEDS ORDERED: ONDANSETRON 2MG/ML, 2ML ONE (21:26)
[2019-09-15] MEDS ORDERED: MORPHINE SULFATE 4 MG/ML, 1ML ONE ×2 (21:26→22:22)
[2019-09-15] MEDS: MORPHINE SULFATE 4 MG/ML, 1ML IVPush PRN ×2 (21:40→22:23)
--- NOTE | 2019-09-15 21:41 | NUR ---
PIV INITIATED, SALINE HUNG, ZOFRAN AND MORPHINE GIVEN PER EMAR. PT TO CT PER BRITTANY
[2019-09-15] MEDS ORDERED: METO25TA35 PO (21:43)
[2019-09-15] MEDS ORDERED: OMNIPAQUE 350 MG/ML, 100ML BOTTLE ONE (21:54)
[2019-09-15 21:56] LABS: CULTURE INDICATED? NO; MICROSCOPIC AUTO
--- NOTE | 2019-09-15 22:05 | NUR ---
PT REPORT TO RASHEED JOVEL. PT CARE TRANSFERRED.
--- NOTE | 2019-09-15 22:17 | NUR ---
REPORT RECEIVED AND CARE ASSUMED. PT STATES NO RELIEF AFTER PAIN MEDS. ERP TO BE NOTIFIED. NO S/S OF ACUTE DISTRESS. CALL LIGHT IN REACH.
[2019-09-15 23:01] VITALS: BP 156/82
== END 2019-09-15 23:04 | disposition home or self-care (01) ==
LOC: ED 20:30
DX: K25.3 Acute gastric ulcer without hemorrhage or perforation (principal); R10.32 Left lower quadrant pain; R10.12 Left upper quadrant pain; R11.0 Nausea; I10 Essential (primary) hypertension; E11.9 Type 2 diabetes mellitus without complications
CPT/HCPCS: 36415; 74177; 80053; 81001; 83605; 83690; 85025; 96374; 96375; 96376; 99285; J2270; J2405; J7030; Q9967

== ENCOUNTER 2019-10-07 19:59 | Emergency (ER) | payer OTHER ==
[~2019-10-07] VITALS: Ht 170.2 cm; Wt 111.2 kg
[2019-10-07 20:03] VITALS: BP 141/78
[2019-10-07] MEDS ORDERED: SODIUM CHLORIDE FLUSH 10ML SYR IVF ONE (20:30)
[2019-10-07] MEDS ORDERED: MORPHINE SULFATE 4 MG/ML, 1ML IVPush PRN (20:30)
[2019-10-07] MEDS ORDERED: ONDANSETRON 2MG/ML, 2ML IVPush ONE (20:30)
[2019-10-07 20:43] LABS: BASOPHILS # (AUTO) 0.03 x10^3/uL (0-0.1); BASOPHILS % (AUTO) 1 % (0-1); EOSINOPHILS # (AUTO) 0.02 x10^3/uL (0-0.4); EOSINOPHILS % (AUTO) 1 % (1-7); LYMPHOCYTES # (AUTO) 1.88 x10^3/uL (1-3.4); LYMPHOCYTES % (AUTO) 39 % (22-44); MD NO; MEAN CORPUSCULAR HGB CONC 33.4 g/dL (33.2-36.2); MEAN CORPUSCULAR VOLUME 80.9 fL (81-97); MEAN PLATELET VOLUME 9.5 fL (7.4-10.4); MONOCYTES # (AUTO) 0.53 x10^3/uL (0.2-0.8); MONOCYTES % (AUTO) 11 % (2-9); NEUTROPHILS # (AUTO) 2.35 x10^3/uL (1.8-6.8); NEUTROPHILS % (AUTO) 49 % (42-75); PLATELET COUNT 134 x10^3/uL (130-400); RED BLOOD COUNT 5.23 x10^6/uL (4.38-5.82); RED CELL DISTRIBUTION WIDTH 14.9 % (9.4-14.8)
[2019-10-07 20:47] LABS: ALANINE AMINOTRANSFERASE 80 U/L (12-78); ALBUMIN 3.7 g/dL (3.4-5.0); ANION GAP 7 mmol/L (5-15); CALCIUM 8.9 mg/dL (8.5-10.1); CHLORIDE 102 mmol/L (98-107); CREATININE 0.97 mg/dL (0.7-1.3)
[2019-10-07 20:51] LABS: ALKALINE PHOSPHATASE 105 U/L (45-117); BILIRUBIN,TOTAL 0.4 mg/dL (0.2-1.0); TOTAL PROTEIN 7.2 g/dL (6.4-8.2); TROPONIN I < 0.015 ng/mL (0.000-0.045)
[2019-10-07] MEDS ORDERED: ONDANSETRON 2MG/ML, 2ML ONE (20:52)
[2019-10-07] MEDS ORDERED: MORPHINE SULFATE 4 MG/ML, 1ML ONE (20:52)
--- NOTE | 2019-10-07 21:23 | NUR ---
Pt here for abd pain. Pt reports bloating and feels distended and reports he has not eaten for 2 days. pt denies blood in stool or urine. no trauma or fevers.
--- NOTE | 2019-10-07 21:24 | NUR ---
does not want ua at this time.
--- NOTE | 2019-10-07 21:24 | NUR ---
Patient/Caregiver given discharge instructions and they have confirmed that they understand the instructions. Patient ambulatory with steady gait.
== END 2019-10-07 21:26 | disposition home or self-care (01) ==
LOC: ED 20:11
DX: K29.00 Acute gastritis without bleeding (principal); I10 Essential (primary) hypertension; E11.9 Type 2 diabetes mellitus without complications; R94.31 Abnormal electrocardiogram [ECG] [EKG]
CPT/HCPCS: 36415; 74021; 80053; 83690; 83880; 84484; 85025; 93005; 96374; 96375; 99285; J2270; J2405

== ENCOUNTER 2020-01-11 15:37 | Emergency (ER) | payer MEDICAID, OTHER ==
[~2020-01-11] VITALS: Ht 170.2 cm; Wt 110.0 kg
--- NOTE | 2020-01-11 16:15 | NUR ---
PT C/O CHEST PAIN INTERMITTENTLY FOR 4 DAYS, DESCRIBED PRESSURE WITH NAUSEA AND DIAPHORESIS. PT PLACED ON MONITOR. PT DENIES COUGH. PT DOES REPORT SOME SOB. PT HAS HX OF ANGINA ALONG WITH DM, HTN, HLD.
[2020-01-11] MEDS ORDERED: SODIUM CHLORIDE 0.9% 1,000ML IVBOLUS ONE (16:30)
[2020-01-11] MEDS ORDERED: SODIUM CHLORIDE FLUSH 10ML SYR IVF ONE (16:30)
[2020-01-11] MEDS ORDERED: MORPHINE SULFATE 4 MG/ML, 1ML IVPush PRN (16:30)
[2020-01-11] MEDS ORDERED: MORPHINE SULFATE 4 MG/ML, 1ML ONE (16:34)
[2020-01-11] MEDS ORDERED: ONDANSETRON 2MG/ML, 2ML ONE (16:34)
[2020-01-11 16:41] LABS: PH, VENOUS 7.399 pH (7.320-7.420)
[2020-01-11 16:42] LABS: BASOPHILS # (AUTO) 0.02 x10^3/uL (0-0.1); BASOPHILS % (AUTO) 0 % (0-1); EOSINOPHILS # (AUTO) 0.03 x10^3/uL (0-0.4); EOSINOPHILS % (AUTO) 1 % (1-7); LYMPHOCYTES # (AUTO) 1.54 x10^3/uL (1-3.4); LYMPHOCYTES % (AUTO) 33 % (22-44); MD SCAN; MEAN CORPUSCULAR HEMOGLOBIN 25.4 pg (27.5-34.5); MEAN PLATELET VOLUME 9.8 fL (7.4-10.4); MONOCYTES # (AUTO) 0.34 x10^3/uL (0.2-0.8); MONOCYTES % (AUTO) 7 % (2-9); NEUTROPHILS # (AUTO) 2.78 x10^3/uL (1.8-6.8); NEUTROPHILS % (AUTO) 59 % (42-75); PLATELET COUNT 140 x10^3/uL (130-400); RED BLOOD COUNT 5.73 x10^6/uL (4.38-5.82); RED CELL DISTRIBUTION WIDTH 15.6 % (9.4-14.8)
[2020-01-11 16:53] LABS: ALANINE AMINOTRANSFERASE 85 U/L (12-78); ANION GAP 7 mmol/L (5-15); CALCIUM 9.3 mg/dL (8.5-10.1); CHLORIDE 101 mmol/L (98-107); CREATININE 1.27 mg/dL (0.7-1.3)
[2020-01-11 16:57] LABS: ALKALINE PHOSPHATASE 117 U/L (45-117); BILIRUBIN,TOTAL 0.3 mg/dL (0.2-1.0); TOTAL PROTEIN 7.4 g/dL (6.4-8.2); TROPONIN I < 0.015 ng/mL (0.000-0.045)
[2020-01-11] MEDS ORDERED: ONDANSETRON 2MG/ML, 2ML IVPush ONE (17:00)
[2020-01-11 17:18] LABS: ACETONE, SERUM Trace (Negative)
[2020-01-11 17:29] VITALS: BP 147/70
--- NOTE | 2020-01-11 17:29 | NUR ---
BREAK RN: PT REPORTS RELIEF OF PAIN SINCE MANAGER INTERFACE. ALL TESTS RESULTED, PT IS UP FOR RECHECK AT THIS TIME. PT RESTING ON Unbook[employer] LtdRNEY W/ CALL LIGHT IN REACH AND FAMILY AT BEDSIDE. LATASHA RADFORD.
== END 2020-01-11 18:52 | disposition home or self-care (01) ==
LOC: ED 18:20
DX: R07.89 Other chest pain (principal); E11.65 Type 2 diabetes mellitus with hyperglycemia; R06.02 Shortness of breath; I10 Essential (primary) hypertension; I25.10 Atherosclerotic heart disease of native coronary artery without angina pectoris; E78.5 Hyperlipidemia, unspecified; K21.9 Gastro-esophageal reflux disease without esophagitis; Z87.891 Personal history of nicotine dependence; Z87.11 Personal history of peptic ulcer disease
CPT/HCPCS: 36415; 71045; 80053; 82010; 82803; 83880; 84484; 85025; 93005; 96361; 96374; 96375; 99285; J2270; J2405; J7030

== ENCOUNTER 2020-01-24 05:15 | Inpatient (IN) | payer OTHER ==
[~2020-01-24] VITALS: Ht 170.2 cm; Wt 108.5 kg
--- NOTE | 2020-01-24 05:44 | NUR ---
PT TO ED WITH C/O 8/10 CP STARTING AT 0100 THAT HAS CONTUINUED SINCE THAT TIME. PT REPORTS LEFT SIDED PAIN RADIATING TO LEFT ARM AND LEFT NECK. PT AWOKE TO PAIN. PT ALSO REPORTS BRICENO AND SOB, DENIES BRICENO, N/V. REPORTS HX OF SAME. DENIES HX OF IL. PT DENIES ANY OTHER C/O AT THIS TIME. PT PLACED ON ALL MONITORING, CALL LIGHT WITHIN REACH, ALL SAFETY MEASURES IN PLACE.
--- NOTE | 2020-01-24 05:49 | NUR ---
PT ALSO REPORTS TAKING X2 NITRO AT HOME HEALTH EDUCATION TEACHER.
[2020-01-24] MEDS ORDERED: SODIUM CHLORIDE 0.9% 1,000 ML IV ONE (05:53)
[2020-01-24] MEDS ORDERED: MORPHINE SULFATE 4 MG/ML, 1ML ONE ×2 (05:55→06:39)
[2020-01-24] MEDS ORDERED: ONDANSETRON 2MG/ML, 2ML ONE (05:55)
[2020-01-24] MEDS ORDERED: ASPIRIN 81 MG TABLET CHEW ONE (05:55)
[2020-01-24] MEDS: MORPHINE SULFATE 4 MG/ML, 1ML IVPush PRN ×2 (06:00→06:42)
[2020-01-24] MEDS ORDERED: ONDANSETRON 2MG/ML, 2ML IVPush ONE (06:00)
[2020-01-24] MEDS ORDERED: ASPIRIN 81 MG TABLET CHEW PO ONE (06:00)
[2020-01-24] MEDS ORDERED: SODIUM CHLORIDE FLUSH 10ML SYR IVF ONE (06:00)
[2020-01-24 06:45] LABS: BASOPHILS # (AUTO) 0.04 x10^3/uL (0-0.1); BASOPHILS % (AUTO) 1 % (0-1); EOSINOPHILS # (AUTO) 0.05 x10^3/uL (0-0.4); EOSINOPHILS % (AUTO) 1 % (1-7); LYMPHOCYTES # (AUTO) 1.74 x10^3/uL (1-3.4); LYMPHOCYTES % (AUTO) 39 % (22-44); MD NO; MEAN CORPUSCULAR HEMOGLOBIN 25.5 pg (27.5-34.5); MEAN CORPUSCULAR HGB CONC 32.4 g/dL (33.2-36.2); MEAN CORPUSCULAR VOLUME 78.7 fL (81-97); MEAN PLATELET VOLUME 10.1 fL (7.4-10.4); MONOCYTES % (AUTO) 9 % (2-9); NEUTROPHILS # (AUTO) 2.18 x10^3/uL (1.8-6.8); NEUTROPHILS % (AUTO) 49 % (42-75); PLATELET COUNT 122 x10^3/uL (130-400); RED BLOOD COUNT 5.56 x10^6/uL (4.38-5.82); RED CELL DISTRIBUTION WIDTH 16.5 % (9.4-14.8)
--- NOTE | 2020-01-24 06:54 | NUR ---
Tye walker in [facility] - 01/24/20 at 0723 by BHARATI magaly wilson
[2020-01-24 06:55] LABS: ALANINE AMINOTRANSFERASE 80 U/L (12-78); ALBUMIN 3.7 g/dL (3.4-5.0); ANION GAP 7 mmol/L (5-15); CALCIUM 8.5 mg/dL (8.5-10.1); CHLORIDE 104 mmol/L (98-107); CREATININE 1.12 mg/dL (0.7-1.3)
[2020-01-24 07:00] LABS: ALKALINE PHOSPHATASE 107 U/L (45-117); BILIRUBIN,TOTAL 0.3 mg/dL (0.2-1.0); TOTAL PROTEIN 7.1 g/dL (6.4-8.2); TROPONIN I < 0.015 ng/mL (0.000-0.045)
--- NOTE | 2020-01-24 07:25 | NUR ---
PT GIVEN URINAL, POC FOR ADMIT
[2020-01-24] MEDS ORDERED: SODIUM CHLORIDE FLUSH 10ML SYR IVF PRN (08:00)
--- NOTE | 2020-01-24 10:10 | NUR ---
PT SLEEPING, DENIES CP. VSS, WAITING FOR TELE BED.
--- NOTE | 2020-01-24 10:45 | NUR ---
PT HAS CO BACK PAIN, TAKES NORCO FOR PAIN. FAMILY AT BEDSIDE
[2020-01-24] MEDS ORDERED: HYDROcodone/APAP 5/325 TABLET PO ONE (11:00)
[2020-01-24] MEDS ORDERED: HYDROcodone/APAP 5/325 TABLET ONE ×2 (11:00→17:55)
--- NOTE | 2020-01-24 11:12 | NUR ---
MEDICATED PER ORDERS FOR PAIN, HOSPITAL BED ORDERED
--- NOTE | 2020-01-24 11:47 | NUR ---
PT ON HOSPITAL BED, AMBULATED TO BATHROOM W CANE, PT STILL CO OF CHEST PAINS THOUGH NO DIFFERENT FROM EARLIER. VSS
[2020-01-24] MEDS ORDERED: NITROGLYCERIN 0.4 MG BOTTLE (25 TABS) SL PRN (13:00)
[2020-01-24] MEDS ORDERED: ONDANSETRON 2MG/ML, 2ML IVPush PRN (13:00)
[2020-01-24 13:29] LABS: TROPONIN I < 0.015 ng/mL (0.000-0.045)
--- NOTE | 2020-01-24 13:44 | NUR ---
US AT BEDSIDE. MEAL TRAY ORDERED.
--- NOTE | 2020-01-24 14:20 | NUR ---
BREAK RN: PT FS 230. INSULIN PEN REQUESTED FROM PHARMACY. PT PROVIDED WITH MEAL TRAY. NO ACUTE DISTRESS NOTED. IV INFUSING WITHOUT REDNESS/SWELLING. NO OTHER NEEDS EXPRESSED AT THIS TIME.
--- NOTE | 2020-01-24 14:24 | NUR ---
REPORT TO KERVIN IQBAL
--- NOTE | 2020-01-24 14:52 | NUR ---
PT TO RADIOLOGY. MEAL COMPLETE
[2020-01-24] MEDS: GABAPENTIN 100 MG CAPSULE PO SCH ×2 (16:00→20:33)
--- NOTE | 2020-01-24 16:00 | NUR ---
PT RESTING, FAMILY AT BEDSIDE. NO NEEDS AT THIS TIME
[2020-01-24] MEDS: INSULIN LISPRO 100 UNITS/ML, PEN SQ-INSULIN SCH ×2 (16:46→20:33)
--- NOTE | 2020-01-24 17:08 | NUR ---
PT AMBULATED TO BATHROOM W FAMILY.
--- NOTE | 2020-01-24 17:13 | NUR ---
REPORT TO CYNTHIA
[2020-01-24] MEDS: HYDROcodone/APAP 5/325 TABLET PO PRN (18:07)
[2020-01-24] MEDS: INSULIN GLARGINE 100 UNITS/ML, PEN SQ-INSULIN SCH (20:33)
[2020-01-24 20:58] VITALS: BP 157/80
[2020-01-24] MEDS ORDERED: ATORVASTATIN 40 MG TABLET PO SCH (21:00)
[2020-01-25] MEDS: HYDROcodone/APAP 5/325 TABLET PO PRN ×2 (00:20→11:12)
[2020-01-25 01:55] VITALS: BP 136/82
[2020-01-25 05:40] LABS: BASOPHILS # (AUTO) 0.03 x10^3/uL (0-0.1); BASOPHILS % (AUTO) 1 % (0-1); EOSINOPHILS # (AUTO) 0.05 x10^3/uL (0-0.4); EOSINOPHILS % (AUTO) 1 % (1-7); LYMPHOCYTES # (AUTO) 2.49 x10^3/uL (1-3.4); LYMPHOCYTES % (AUTO) 49 % (22-44); MD NO; MEAN CORPUSCULAR HEMOGLOBIN 25.4 pg (27.5-34.5); MEAN CORPUSCULAR HGB CONC 32.3 g/dL (33.2-36.2); MEAN CORPUSCULAR VOLUME 78.7 fL (81-97); MEAN PLATELET VOLUME 10.2 fL (7.4-10.4); MONOCYTES # (AUTO) 0.48 x10^3/uL (0.2-0.8); MONOCYTES % (AUTO) 10 % (2-9); NEUTROPHILS # (AUTO) 2.04 x10^3/uL (1.8-6.8); NEUTROPHILS % (AUTO) 40 % (42-75); PLATELET COUNT 122 x10^3/uL (130-400); RED BLOOD COUNT 5.59 x10^6/uL (4.38-5.82)
[2020-01-25 05:52] LABS: CHLORIDE 108 mmol/L (98-107)
[2020-01-25 05:58] LABS: ALANINE AMINOTRANSFERASE 74 U/L (12-78); ALBUMIN 3.5 g/dL (3.4-5.0); ALKALINE PHOSPHATASE 66 U/L (45-117); ANION GAP 7 mmol/L (5-15); BILIRUBIN,TOTAL 0.6 mg/dL (0.2-1.0); CALCIUM 8.3 mg/dL (8.5-10.1); CREATININE 0.79 mg/dL (0.7-1.3); TOTAL PROTEIN 6.6 g/dL (6.4-8.2)
[2020-01-25 06:39] VITALS: BP 144/90
[2020-01-25] MEDS: INSULIN LISPRO 100 UNITS/ML, PEN SQ-INSULIN SCH ×3 (07:00→17:37)
[2020-01-25] MEDS ORDERED: REGADENOSON 0.4 MG/5 ML SYRINGE ONE (08:04)
[2020-01-25] MEDS ORDERED: METOPROLOL TARTRATE 25 MG TAB PO SCH (09:00)
[2020-01-25] MEDS: INSULIN GLARGINE 100 UNITS/ML, PEN SQ-INSULIN SCH (09:00)
[2020-01-25] MEDS: GABAPENTIN 100 MG CAPSULE PO SCH ×2 (09:00→16:00)
[2020-01-25] MEDS ORDERED: LOSARTAN 100 MG TAB PO SCH (09:00)
[2020-01-25] MEDS ORDERED: ISOSORBIDE MONONITRATE ER 30 MG TABLET PO SCH (09:00)
[2020-01-25] MEDS ORDERED: HYDROCHLOROTHIAZIDE 12.5 MG CAPSULE PO SCH (09:00)
[2020-01-25] MEDS ORDERED: ASPIRIN 81 MG TABLET EC PO SCH (09:00)
[2020-01-25] MEDS ORDERED: AMLODIPINE 10 MG TAB PO SCH (09:00)
[2020-01-25 13:35] VITALS: BP 158/76
== END 2020-01-25 18:46 | disposition home or self-care (01) | DRG 313 ==
LOC: ED 07:15 → EDIP 08:26 → 5SO 17:33
PROVIDERS: ADMIT Hospitalist; ATTEND Hospitalist
DX: R07.9 Chest pain, unspecified (principal); J98.11 Atelectasis; I25.110 Atherosclerotic heart disease of native coronary artery with unstable angina pectoris; E11.65 Type 2 diabetes mellitus with hyperglycemia; E66.9 Obesity, unspecified; E78.5 Hyperlipidemia, unspecified; G89.29 Other chronic pain; I10 Essential (primary) hypertension; M79.7 Fibromyalgia; K21.9 Gastro-esophageal reflux disease without esophagitis; Z87.11 Personal history of peptic ulcer disease; Z79.899 Other long term (current) drug therapy; Z90.49 Acquired absence of other specified parts of digestive tract; Z68.37 Body mass index [BMI] 37.0-37.9, adult
CPT/HCPCS: 36415; 70480; 71045; 78452; 80053; 82962; 83036; 84484; 85025; 93005; 93017; 93306; 93970; G0378; J2405; J2785; A9502; J1815; J2270; J7030

== ENCOUNTER 2020-02-22 06:31 | Emergency (ER) | payer SELFPAY ==
[~2020-02-22] VITALS: Ht 167.6 cm; Wt 105.7 kg
--- NOTE | 2020-02-22 06:58 | NUR ---
REPORT FROM JANNA HALL RESTING
[2020-02-22] MEDS ORDERED: CIPROFLOXACIN DEXAMETHASONE EAR SUSP 7.5ML LEFT EAR ONE (07:17)
[2020-02-22] MEDS ORDERED: AMPICILLIN/SULBACTAM 3 GM in SODIUM CHLORIDE 0.9% 100 ML IV ONE (07:19)
--- NOTE | 2020-02-22 07:27 | NUR ---
PT HAS CO OF RIGHT EAR PAIN W HEADACHE FOR COUPLE DAYS. PT STATES HE HAD RECENT CATH, BUT STILL HAS CHEST PAIN. DENIES SOB EKG DONE, HOSPITALITY SERVICES MANAGER IN PLACE. IV ESTABLISHED.
[2020-02-22] MEDS ORDERED: SODIUM CHLORIDE 0.9% 1,000ML IVBOLUS ONE (07:30)
[2020-02-22] MEDS ORDERED: SODIUM CHLORIDE FLUSH 10ML SYR IVF ONE (07:30)
[2020-02-22] MEDS ORDERED: HYDROmorphone 1 MG/ML, 1ML INJ ONE ×2 (07:32→08:31)
[2020-02-22] MEDS: HYDROmorphone 1 MG/ML, 1ML INJ IVPush PRN ×2 (07:39→08:32)
[2020-02-22] MEDS ORDERED: ONDANSETRON 2MG/ML, 2ML ONE (07:48)
--- NOTE | 2020-02-22 07:52 | NUR ---
MEDICATED PER ORDERS. BLOOD CULTURES DRAWN PRIOR ABX
[2020-02-22 07:55] LABS: ALANINE AMINOTRANSFERASE 79 U/L (12-78); ALBUMIN 3.8 g/dL (3.4-5.0); ANION GAP 7 mmol/L (5-15); BASOPHILS # (AUTO) 0.03 x10^3/uL (0-0.1); BASOPHILS % (AUTO) 1 % (0-1); CALCIUM 9.4 mg/dL (8.5-10.1); CHLORIDE 107 mmol/L (98-107); CREATININE 0.98 mg/dL (0.7-1.3); EOSINOPHILS # (AUTO) 0.03 x10^3/uL (0-0.4); EOSINOPHILS % (AUTO) 1 % (1-7); LYMPHOCYTES # (AUTO) 1.69 x10^3/uL (1-3.4); LYMPHOCYTES % (AUTO) 29 % (22-44); MD NO; MEAN CORPUSCULAR HEMOGLOBIN 25.4 pg (27.5-34.5); MEAN CORPUSCULAR HGB CONC 32.4 g/dL (33.2-36.2); MEAN CORPUSCULAR VOLUME 78.4 fL (81-97); MEAN PLATELET VOLUME 10.1 fL (7.4-10.4); MONOCYTES # (AUTO) 0.35 x10^3/uL (0.2-0.8); MONOCYTES % (AUTO) 6 % (2-9); NEUTROPHILS # (AUTO) 3.65 x10^3/uL (1.8-6.8); NEUTROPHILS % (AUTO) 64 % (42-75); PLATELET COUNT 135 x10^3/uL (130-400); RED BLOOD COUNT 5.99 x10^6/uL (4.38-5.82); RED CELL DISTRIBUTION WIDTH 17.4 % (9.4-14.8)
[2020-02-22 07:57] LABS: ALKALINE PHOSPHATASE 95 U/L (45-117); BILIRUBIN,TOTAL 0.4 mg/dL (0.2-1.0); TOTAL PROTEIN 7.4 g/dL (6.4-8.2)
[2020-02-22] MEDS ORDERED: ONDANSETRON 2MG/ML, 2ML IVPush ONE (08:00)
[2020-02-22 08:09] VITALS: BP 173/82
[2020-02-22 08:48] LABS: HCT (SEDRATE) 46.9 % (39.2-51.8)
--- NOTE | 2020-02-22 09:16 | NUR ---
PT IN IMAGING
--- NOTE | 2020-02-22 09:54 | NUR ---
PT BACK FROM CT. AMBULATED TO BATHROOM W STEADY GAIT.
--- NOTE | 2020-02-22 11:54 | NUR ---
MD LOVELLED DC PLANS W SON OVER PHONE
--- NOTE | 2020-02-22 11:54 | NUR ---
Patient/Caregiver given discharge instructions and they have confirmed that they understand the instructions. Patient ambulatory with steady gait.
== END 2020-02-22 11:55 | disposition home or self-care (01) ==
LOC: ED 06:45
DX: H60.22 Malignant otitis externa, left ear (principal); H66.92 Otitis media, unspecified, left ear; H60.12 Cellulitis of left external ear; H72.92 Unspecified perforation of tympanic membrane, left ear; R10.9 Unspecified abdominal pain; E11.9 Type 2 diabetes mellitus without complications; I25.10 Atherosclerotic heart disease of native coronary artery without angina pectoris; I10 Essential (primary) hypertension; E78.5 Hyperlipidemia, unspecified; K21.9 Gastro-esophageal reflux disease without esophagitis; M79.7 Fibromyalgia; Z90.49 Acquired absence of other specified parts of digestive tract; Z88.1 Allergy status to other antibiotic agents
CPT/HCPCS: 36415; 70480; 71045; 80053; 83605; 85025; 85651; 87040; 93005; 99285; J0295; J1170; J7030

== ENCOUNTER 2020-02-23 15:27 | Inpatient (IN) | payer SELFPAY ==
[~2020-02-23] VITALS: Ht 170.2 cm; Wt 105.0 kg
[2020-02-23] MEDS ORDERED: OXYcodone/APAP 5/325MG TABLET PO ONE ×2 (16:00→19:00)
[2020-02-23] MEDS ORDERED: ONDANSETRON ODT 4 MG PO ONE (16:00)
[2020-02-23] MEDS ORDERED: ONDANSETRON ODT 4 MG ONE (16:07)
[2020-02-23] MEDS ORDERED: OXYcodone/APAP 5/325MG TABLET ONE (16:07)
--- NOTE | 2020-02-23 16:11 | NUR ---
pt medicated per emar. pt tolerated well.
[2020-02-23 16:25] LABS: ANION GAP 9 mmol/L (5-15); BASOPHILS # (AUTO) 0.03 x10^3/uL (0-0.1); BASOPHILS % (AUTO) 0 % (0-1); CALCIUM 9.2 mg/dL (8.5-10.1); CHLORIDE 104 mmol/L (98-107); CREATININE 1.35 mg/dL (0.7-1.3); EOSINOPHILS # (AUTO) 0.03 x10^3/uL (0-0.4); EOSINOPHILS % (AUTO) 0 % (1-7); LYMPHOCYTES # (AUTO) 1.72 x10^3/uL (1-3.4); LYMPHOCYTES % (AUTO) 22 % (22-44); MEAN CORPUSCULAR HEMOGLOBIN 25.5 pg (27.5-34.5); MEAN CORPUSCULAR HGB CONC 32.2 g/dL (33.2-36.2); MEAN CORPUSCULAR VOLUME 79.1 fL (81-97); MEAN PLATELET VOLUME 10.3 fL (7.4-10.4); MONOCYTES # (AUTO) 0.45 x10^3/uL (0.2-0.8); MONOCYTES % (AUTO) 6 % (2-9); NEUTROPHILS % (AUTO) 72 % (42-75); PLATELET COUNT 137 x10^3/uL (130-400); RED BLOOD COUNT 5.92 x10^6/uL (4.38-5.82); RED CELL DISTRIBUTION WIDTH 17.4 % (9.4-14.8)
[2020-02-23 16:26] LABS: MD NO
--- NOTE | 2020-02-23 16:33 | NUR ---
pt's bg is 507 per lab.
[2020-02-23] MEDS ORDERED: SODIUM CHLORIDE 0.9% 1,000ML IVBOLUS ONE (17:00)
[2020-02-23] MEDS ORDERED: SODIUM CHLORIDE FLUSH 10ML SYR IVF ONE (17:00)
[2020-02-23] MEDS ORDERED: AMPICILLIN/SULBACTAM 3 GM in SODIUM CHLORIDE 0.9% 100 ML IV ONE (17:00)
--- NOTE | 2020-02-23 17:04 | NUR ---
piv est on l ac with no complications. ns infusing at this time. pt tolerated well.
[2020-02-23 17:08] LABS: FIO2 ROOM AIR %; PH, VENOUS 7.421 pH (7.320-7.420)
--- NOTE | 2020-02-23 17:20 | NUR ---
ABX INFUSING AT THIS TIME. NO BC NEEDED PER PA. PT TOLERATED WELL.
[2020-02-23 17:30] LABS: ACETONE, SERUM Trace (Negative)
--- NOTE | 2020-02-23 17:42 | NUR ---
report given to eduar diana. all questions answered.
[2020-02-23 17:56] VITALS: BP 157/81
[2020-02-23] MEDS ORDERED: hydrALAzine 20 MG/ML, 1ML IVPush PRN (19:00)
[2020-02-23] MEDS ORDERED: DOCUSATE 100 MG CAPSULE PO PRN (19:00)
[2020-02-23] MEDS ORDERED: ONDANSETRON ODT 4 MG PO PRN ×2 (19:00)
[2020-02-23] MEDS ORDERED: ACETAMINOPHEN 325 MG TABLET PO PRN (19:00)
[2020-02-23] MEDS ORDERED: NITROGLYCERIN SINGLE TAB 0.4 MG SL PRN (19:00)
[2020-02-23] MEDS ORDERED: MELATONIN 5 MG TABLET PO PRN (19:00)
[2020-02-23 19:31] VITALS: BP 179/95
[2020-02-23] MEDS ORDERED: INSULIN GLARGINE, 100 UNITS/ML VIAL SQ SCH (21:00)
[2020-02-23] MEDS: LACTATED RINGERS 1,000 ML IV SCH (21:12)
[2020-02-23] MEDS: GABAPENTIN 100 MG CAPSULE PO SCH (22:16)
[2020-02-23] MEDS: INSULIN LISPRO 100 UNITS/ML, PEN SQ-INSULIN SCH (22:17)
[2020-02-23] MEDS: OMEPRAZOLE 20 MG CAPSULE.DR PO SCH (22:17)
[2020-02-23] MEDS: ATORVASTATIN 40 MG TABLET PO SCH (22:17)
[2020-02-23] MEDS: HEPARIN 5,000 UNITS/ML, 1ML SQ SCH (22:17)
[2020-02-23 22:18] VITALS: BP 160/78
[2020-02-23] MEDS: INSULIN GLARGINE 100 UNITS/ML, PEN SQ-INSULIN SCH (22:18)
[2020-02-23] MEDS: AMPICILLIN/SULBACTAM 3 GM in SODIUM CHLORIDE 0.9% 100 ML IV SCH (23:28)
[2020-02-23] MEDS: OXYcodone/APAP 10/325MG TABLET PO PRN (23:28)
[2020-02-24 00:44] VITALS: BP 160/85
[2020-02-24] MEDS: OXYcodone/APAP 10/325MG TABLET PO PRN ×5 (03:35→20:49)
[2020-02-24 04:04] LABS: BASOPHILS # (AUTO) 0.04 x10^3/uL (0-0.1); BASOPHILS % (AUTO) 1 % (0-1); EOSINOPHILS % (AUTO) 2 % (1-7); LYMPHOCYTES # (AUTO) 2.89 x10^3/uL (1-3.4); LYMPHOCYTES % (AUTO) 42 % (22-44); MD NO; MEAN CORPUSCULAR HEMOGLOBIN 25.7 pg (27.5-34.5); MEAN CORPUSCULAR HGB CONC 32.6 g/dL (33.2-36.2); MEAN CORPUSCULAR VOLUME 78.7 fL (81-97); MEAN PLATELET VOLUME 10.3 fL (7.4-10.4); MONOCYTES # (AUTO) 0.46 x10^3/uL (0.2-0.8); MONOCYTES % (AUTO) 7 % (2-9); NEUTROPHILS # (AUTO) 3.36 x10^3/uL (1.8-6.8); NEUTROPHILS % (AUTO) 49 % (42-75); PLATELET COUNT 121 x10^3/uL (130-400); RED BLOOD COUNT 5.26 x10^6/uL (4.38-5.82); RED CELL DISTRIBUTION WIDTH 17.4 % (9.4-14.8)
[2020-02-24 04:17] LABS: ANION GAP 6 mmol/L (5-15); CALCIUM 8.6 mg/dL (8.5-10.1); CHLORIDE 109 mmol/L (98-107)
[2020-02-24 04:18] LABS: CREATININE 0.88 mg/dL (0.7-1.3)
[2020-02-24] MEDS: AMPICILLIN/SULBACTAM 3 GM in SODIUM CHLORIDE 0.9% 100 ML IV SCH ×4 (05:12→23:13)
[2020-02-24] MEDS: LACTATED RINGERS 1,000 ML IV SCH (05:12)
[2020-02-24] MEDS: HEPARIN 5,000 UNITS/ML, 1ML SQ SCH ×3 (05:59→23:13)
[2020-02-24 07:10] VITALS: BP 138/72
[2020-02-24] MEDS ORDERED: POTASSIUM CHLORIDE 20 MEQ TAB.ER.PRT PO ONE (07:30)
[2020-02-24] MEDS: ASPIRIN 81 MG TABLET EC PO SCH (08:15)
[2020-02-24] MEDS: LOSARTAN 100 MG TAB PO SCH (08:15)
[2020-02-24] MEDS: GABAPENTIN 100 MG CAPSULE PO SCH ×3 (08:15→20:49)
[2020-02-24] MEDS: INSULIN LISPRO 100 UNITS/ML, PEN SQ-INSULIN SCH ×4 (08:15→20:49)
[2020-02-24] MEDS: OMEPRAZOLE 20 MG CAPSULE.DR PO SCH ×2 (08:15→20:49)
[2020-02-24] MEDS: INSULIN GLARGINE 100 UNITS/ML, PEN SQ-INSULIN SCH ×2 (08:16→20:50)
[2020-02-24] MEDS: HYDROCHLOROTHIAZIDE 12.5 MG CAPSULE PO SCH (08:16)
[2020-02-24 08:40] LABS: ALANINE AMINOTRANSFERASE 63 U/L (12-78); ALBUMIN 3.2 g/dL (3.4-5.0)
[2020-02-24 08:41] LABS: ALKALINE PHOSPHATASE 74 U/L (45-117); BILIRUBIN,TOTAL 0.4 mg/dL (0.2-1.0); TOTAL PROTEIN 6.4 g/dL (6.4-8.2)
[2020-02-24 08:42] LABS: BILIRUBIN, DIRECT < 0.1 mg/dL (0.1-0.2); BILIRUBIN,INDIRECT 0.3 mg/dL (0.0-2.0)
[2020-02-24] MEDS ORDERED: TEMPLATE NON-FORMULARY MED. (Losartan/Hydrochlorothiazide** (Losartan-Hctz 100-12.5 Mg Tab PO SCH (09:00)
[2020-02-24 13:26] VITALS: BP 132/77
[2020-02-24 19:18] VITALS: BP 142/74
[2020-02-24] MEDS: ATORVASTATIN 40 MG TABLET PO SCH (20:49)
[2020-02-25] MEDS: OXYcodone/APAP 10/325MG TABLET PO PRN ×4 (00:50→14:00)
[2020-02-25 01:01] VITALS: BP 148/84
[2020-02-25] MEDS: AMPICILLIN/SULBACTAM 3 GM in SODIUM CHLORIDE 0.9% 100 ML IV SCH ×2 (04:54→11:29)
[2020-02-25] MEDS: HEPARIN 5,000 UNITS/ML, 1ML SQ SCH ×2 (04:54→14:00)
[2020-02-25 06:35] LABS: BASOPHILS # (AUTO) 0.04 x10^3/uL (0-0.1); BASOPHILS % (AUTO) 1 % (0-1); CALCIUM 8.7 mg/dL (8.5-10.1); CHLORIDE 109 mmol/L (98-107); EOSINOPHILS # (AUTO) 0.08 x10^3/uL (0-0.4); EOSINOPHILS % (AUTO) 2 % (1-7); LYMPHOCYTES # (AUTO) 2.21 x10^3/uL (1-3.4); LYMPHOCYTES % (AUTO) 43 % (22-44); MD NO; MEAN CORPUSCULAR HEMOGLOBIN 25.6 pg (27.5-34.5); MEAN CORPUSCULAR HGB CONC 32.6 g/dL (33.2-36.2); MEAN CORPUSCULAR VOLUME 78.6 fL (81-97); MEAN PLATELET VOLUME 10.1 fL (7.4-10.4); MONOCYTES % (AUTO) 8 % (2-9); NEUTROPHILS # (AUTO) 2.41 x10^3/uL (1.8-6.8); NEUTROPHILS % (AUTO) 47 % (42-75); PLATELET COUNT 110 x10^3/uL (130-400); RED BLOOD COUNT 5.23 x10^6/uL (4.38-5.82); RED CELL DISTRIBUTION WIDTH 17.5 % (9.4-14.8)
[2020-02-25 06:39] LABS: ANION GAP 6 mmol/L (5-15); CREATININE 0.74 mg/dL (0.7-1.3)
[2020-02-25 06:59] VITALS: BP 153/81
[2020-02-25] MEDS: GABAPENTIN 100 MG CAPSULE PO SCH (07:43)
[2020-02-25] MEDS: ASPIRIN 81 MG TABLET EC PO SCH (07:43)
[2020-02-25] MEDS: INSULIN LISPRO 100 UNITS/ML, PEN SQ-INSULIN SCH ×2 (07:43→11:29)
[2020-02-25] MEDS: OMEPRAZOLE 20 MG CAPSULE.DR PO SCH (07:43)
[2020-02-25] MEDS: HYDROCHLOROTHIAZIDE 12.5 MG CAPSULE PO SCH (07:43)
[2020-02-25] MEDS: LOSARTAN 100 MG TAB PO SCH (07:44)
[2020-02-25] MEDS: INSULIN GLARGINE 100 UNITS/ML, PEN SQ-INSULIN SCH (07:44)
[2020-02-25] MEDS ORDERED: POTASSIUM CHLORIDE 20 MEQ TAB.ER.PRT PO SCH (08:00)
[2020-02-25] MEDS ORDERED: AMLODIPINE 5 MG TABLET PO SCH (09:00)
[2020-02-25] MEDS ORDERED: CHLORHEXIDINE 15 ML UDC MM SCH (11:00)
[2020-02-25] MEDS ORDERED: POTA20TA6 PO (12:39)
[2020-02-25] MEDS ORDERED: maalox/diphenh/lido/decadron PO (12:39)
[2020-02-25] MEDS ORDERED: CHLO473M MM (12:39)
[2020-02-25] MEDS ORDERED: AMOX1TAB64 PO (12:39)
[2020-02-25 12:43] VITALS: BP 157/81
[2020-02-25] MEDS ORDERED: AMLO-150 PO (12:45)
[2020-02-25] MEDS ORDERED: INSULIN LISPRO 100 UNITS/ML, PEN SQ-INSULIN SCH (16:00)
[2020-02-25] MEDS ORDERED: INSULIN GLARGINE 100 UNITS/ML, PEN SQ-INSULIN SCH (21:00)
== END 2020-02-25 15:20 | disposition home or self-care (01) | DRG 637 ==
LOC: ED 16:18 → EDIP 17:25 → 3N 17:54
PROVIDERS: ADMIT Hospitalist; ATTEND Hospitalist
DX: E11.65 Type 2 diabetes mellitus with hyperglycemia (principal); N17.0 Acute kidney failure with tubular necrosis; E87.2 Acidosis; H60.20 Malignant otitis externa, unspecified ear; I50.30 Unspecified diastolic (congestive) heart failure; E78.5 Hyperlipidemia, unspecified; E87.6 Hypokalemia; F17.210 Nicotine dependence, cigarettes, uncomplicated; H60.92 Unspecified otitis externa, left ear; H66.92 Otitis media, unspecified, left ear; H72.92 Unspecified perforation of tympanic membrane, left ear; I15.8 Other secondary hypertension; I25.10 Atherosclerotic heart disease of native coronary artery without angina pectoris; K02.9 Dental caries, unspecified; M79.7 Fibromyalgia; T50.2X5A Adverse effect of carbonic-anhydrase inhibitors, benzothiadiazides and other diuretics, initial encounter; D75.89 Other specified diseases of blood and blood-forming organs; D69.6 Thrombocytopenia, unspecified; Z82.3 Family history of stroke; Z82.49 Family history of ischemic heart disease and other diseases of the circulatory system; Z83.3 Family history of diabetes mellitus
CPT/HCPCS: 36415; J3490; 70486; 80048; 80076; 82010; 82803; 82962; 83605; 83735; 85025; G0378; J0295; J1644; Q0162; J1815; J7030; J7120

== ENCOUNTER 2020-03-09 15:48 | Inpatient (IN) | payer MEDICAID ==
[~2020-03-09] VITALS: Ht 167.6 cm; Wt 109.4 kg
[~2020-03-09 15:48] MED LIST changes: +CHLO473M MM; +POTA20TA6 PO; +maalox/diphenh/lido/decadron PO
[2020-03-09] MEDS ORDERED: ASPIRIN 81 MG TABLET CHEW ONE (16:28)
[2020-03-09] MEDS ORDERED: SODIUM CHLORIDE 0.9% 1,000ML IVBOLUS ONE (16:30)
[2020-03-09] MEDS ORDERED: ASPIRIN 81 MG TABLET CHEW PO ONE (16:30)
[2020-03-09 16:34] LABS: PH, VENOUS 7.413 pH (7.320-7.420)
[2020-03-09 16:35] LABS: FIO2 ROOM AIR %
[2020-03-09 16:37] LABS: BASOPHILS # (AUTO) 0.03 x10^3/uL (0-0.1); BASOPHILS % (AUTO) 1 % (0-1); EOSINOPHILS # (AUTO) 0.03 x10^3/uL (0-0.4); EOSINOPHILS % (AUTO) 1 % (1-7); LYMPHOCYTES # (AUTO) 1.64 x10^3/uL (1-3.4); LYMPHOCYTES % (AUTO) 34 % (22-44); MD NO; MEAN CORPUSCULAR HEMOGLOBIN 25.3 pg (27.5-34.5); MEAN CORPUSCULAR HGB CONC 32.1 g/dL (33.2-36.2); MEAN CORPUSCULAR VOLUME 78.9 fL (81-97); MEAN PLATELET VOLUME 9.4 fL (7.4-10.4); MONOCYTES # (AUTO) 0.43 x10^3/uL (0.2-0.8); MONOCYTES % (AUTO) 9 % (2-9); NEUTROPHILS # (AUTO) 2.64 x10^3/uL (1.8-6.8); NEUTROPHILS % (AUTO) 55 % (42-75); PLATELET COUNT 149 x10^3/uL (130-400); RED BLOOD COUNT 5.95 x10^6/uL (4.38-5.82)
[2020-03-09] MEDS ORDERED: ONDANSETRON 2MG/ML, 2ML ONE (16:43)
[2020-03-09] MEDS ORDERED: MORPHINE SULFATE 4 MG/ML, 1ML ONE (16:44)
[2020-03-09 16:48] LABS: ALANINE AMINOTRANSFERASE 90 U/L (12-78); ALBUMIN 3.9 g/dL (3.4-5.0); ANION GAP 10 mmol/L (5-15); CALCIUM 9.2 mg/dL (8.5-10.1); CHLORIDE 99 mmol/L (98-107); CREATININE 1.08 mg/dL (0.7-1.3)
[2020-03-09 16:52] LABS: ALKALINE PHOSPHATASE 119 U/L (45-117); BILIRUBIN,TOTAL 0.4 mg/dL (0.2-1.0); TOTAL PROTEIN 7.7 g/dL (6.4-8.2); TROPONIN I < 0.015 ng/mL (0.000-0.045)
[2020-03-09] MEDS ORDERED: ONDANSETRON 2MG/ML, 2ML IVPush ONE (17:00)
[2020-03-09] MEDS ORDERED: MORPHINE SULFATE 4 MG/ML, 1ML IVPush PRN (17:00)
[2020-03-09 17:12] LABS: ACETONE, SERUM Negative (Negative)
[2020-03-09 18:22] LABS: MICROSCOPIC AUTO
[2020-03-09] MEDS ORDERED: SODIUM CHLORIDE FLUSH 10ML SYR IVF PRN (18:30)
[2020-03-09] MEDS ORDERED: HYDROcodone/APAP 10/325 MG TABLET PO PRN ×2 (19:30→23:30)
[2020-03-09 19:47] VITALS: BP 201/93
[2020-03-09] MEDS ORDERED: LABETALOL 5MG/ML, 20ML IVPush ONE (20:00)
[2020-03-09] MEDS: CHLORHEXIDINE 15 ML UDC MM SCH (20:53)
[2020-03-09] MEDS: GABAPENTIN 100 MG CAPSULE PO SCH (20:53)
[2020-03-09] MEDS: ATORVASTATIN 40 MG TABLET PO SCH (20:53)
[2020-03-09] MEDS ORDERED: INSULIN GLARGINE 100 UNITS/ML, PEN SQ-INSULIN SCH (21:00)
[2020-03-09] MEDS ORDERED: INSULIN LISPRO 100 UNITS/ML, PEN SQ-INSULIN SCH (21:00)
[2020-03-09] MEDS ORDERED: MELATONIN 5 MG TABLET PO PRN (21:00)
[2020-03-09] MEDS ORDERED: ENOXAPARIN 40 MG/0.4 ML SQ SCH (21:00)
[2020-03-09] MEDS ORDERED: LIDODERM 5% PATCH TD PRN (21:00)
[2020-03-09] MEDS ORDERED: NITROGLYCERIN SINGLE TAB 0.4 MG SL PRN (21:00)
[2020-03-09] MEDS ORDERED: LABETALOL 5MG/ML, 20ML IVPush PRN (21:00)
[2020-03-09] MEDS ORDERED: ONDANSETRON 2MG/ML, 2ML IVPush PRN (21:00)
[2020-03-09] MEDS ORDERED: FLU VACC QS2020-21(6MOS UP)/PF 60MCG/0.5 ML SYR IM-VACC ONE (21:30)
[2020-03-09 23:18] LABS: TROPONIN I < 0.015 ng/mL (0.000-0.045)
[2020-03-09] MEDS: OXYcodone IR 5MG TABLET PO PRN (23:34)
[2020-03-10] MEDS ORDERED: POLY17PO5 PO (00:17)
[2020-03-10 01:47] VITALS: BP 146/86
[2020-03-10] MEDS: OXYcodone IR 5MG TABLET PO PRN ×5 (03:33→23:39)
[2020-03-10 05:03] LABS: BASOPHILS # (AUTO) 0.03 x10^3/uL (0-0.1); BASOPHILS % (AUTO) 1 % (0-1); EOSINOPHILS # (AUTO) 0.05 x10^3/uL (0-0.4); EOSINOPHILS % (AUTO) 1 % (1-7); LYMPHOCYTES # (AUTO) 2.35 x10^3/uL (1-3.4); LYMPHOCYTES % (AUTO) 45 % (22-44); MD NO; MEAN CORPUSCULAR HEMOGLOBIN 25.2 pg (27.5-34.5); MEAN CORPUSCULAR HGB CONC 32.2 g/dL (33.2-36.2); MEAN CORPUSCULAR VOLUME 78.3 fL (81-97); MEAN PLATELET VOLUME 9.3 fL (7.4-10.4); MONOCYTES % (AUTO) 10 % (2-9); NEUTROPHILS # (AUTO) 2.32 x10^3/uL (1.8-6.8); NEUTROPHILS % (AUTO) 44 % (42-75); PLATELET COUNT 125 x10^3/uL (130-400); RED BLOOD COUNT 5.35 x10^6/uL (4.38-5.82); RED CELL DISTRIBUTION WIDTH 16.6 % (9.4-14.8)
[2020-03-10 05:11] LABS: % IRON SATURATION 18 % (20-55); ANION GAP 6 mmol/L (5-15); CALCIUM 8.6 mg/dL (8.5-10.1); CHLORIDE 103 mmol/L (98-107); CREATININE 0.91 mg/dL (0.7-1.3); IRON LEVEL 72 mcg/dL (65-175); TOTAL IRON BINDING CAPACITY 410 mcg/dL (250-450)
[2020-03-10 05:16] LABS: TROPONIN I < 0.015 ng/mL (0.000-0.045)
[2020-03-10] MEDS: CHLORHEXIDINE 15 ML UDC MM SCH ×4 (06:29→21:17)
[2020-03-10 06:55] VITALS: BP 158/84
[2020-03-10] MEDS ORDERED: HYDROCHLOROTHIAZIDE 12.5 MG CAPSULE PO SCH (09:00)
[2020-03-10] MEDS: ASPIRIN 81 MG TABLET EC PO SCH (09:18)
[2020-03-10] MEDS: LOSARTAN 100 MG TAB PO SCH (09:18)
[2020-03-10] MEDS: HYDROCHLOROTHIAZIDE 25 MG TABLET PO SCH (09:18)
[2020-03-10] MEDS: AMLODIPINE 10 MG TAB PO SCH (09:18)
[2020-03-10] MEDS: POTASSIUM CHLORIDE 20 MEQ TAB.ER.PRT PO SCH ×2 (09:18→16:13)
[2020-03-10] MEDS: GABAPENTIN 100 MG CAPSULE PO SCH ×3 (09:18→21:18)
[2020-03-10] MEDS: INSULIN GLARGINE 100 UNITS/ML, PEN SQ-INSULIN SCH ×2 (09:19→21:18)
[2020-03-10 09:36] LABS: INTERNATIONAL NORMALIZED RATIO 1.05 (0.93-1.1); PROTHROMBIN TIME 10.8 Seconds (9.6-11.5)
[2020-03-10] MEDS: CEFTRIAXONE PMX 2GM/50ML 50 ML IV SCH (09:47)
[2020-03-10 09:54] LABS: MICROSCOPIC AUTO
[2020-03-10] MEDS: INSULIN LISPRO 100 UNITS/ML, PEN SQ-INSULIN SCH ×3 (11:54→21:19)
[2020-03-10 12:40] VITALS: BP 148/81
[2020-03-10 18:22] VITALS: BP 146/85
[2020-03-10] MEDS: DOCUSATE 100 MG CAPSULE PO PRN (19:34)
[2020-03-10] MEDS: ATORVASTATIN 40 MG TABLET PO SCH (21:18)
[2020-03-11 00:03] VITALS: BP 153/91
[2020-03-11] MEDS: OXYcodone IR 5MG TABLET PO PRN ×6 (02:49→22:02)
[2020-03-11] MEDS: CHLORHEXIDINE 15 ML UDC MM SCH ×4 (05:16→20:52)
[2020-03-11] MEDS: DOCUSATE 100 MG CAPSULE PO PRN (05:17)
[2020-03-11 05:21] LABS: BASOPHILS # (AUTO) 0.03 x10^3/uL (0-0.1); BASOPHILS % (AUTO) 1 % (0-1); EOSINOPHILS # (AUTO) 0.06 x10^3/uL (0-0.4); EOSINOPHILS % (AUTO) 1 % (1-7); LYMPHOCYTES # (AUTO) 2.17 x10^3/uL (1-3.4); LYMPHOCYTES % (AUTO) 38 % (22-44); MD NO; MEAN CORPUSCULAR HEMOGLOBIN 25.1 pg (27.5-34.5); MEAN CORPUSCULAR HGB CONC 31.9 g/dL (33.2-36.2); MEAN CORPUSCULAR VOLUME 78.7 fL (81-97); MEAN PLATELET VOLUME 9.2 fL (7.4-10.4); MONOCYTES # (AUTO) 0.65 x10^3/uL (0.2-0.8); MONOCYTES % (AUTO) 11 % (2-9); NEUTROPHILS # (AUTO) 2.85 x10^3/uL (1.8-6.8); NEUTROPHILS % (AUTO) 50 % (42-75); PLATELET COUNT 146 x10^3/uL (130-400); RED BLOOD COUNT 5.55 x10^6/uL (4.38-5.82); RED CELL DISTRIBUTION WIDTH 17.1 % (9.4-14.8)
[2020-03-11 05:31] LABS: CHLORIDE 107 mmol/L (98-107)
[2020-03-11 05:42] LABS: ALANINE AMINOTRANSFERASE 76 U/L (12-78); ALBUMIN 3.6 g/dL (3.4-5.0); ALKALINE PHOSPHATASE 71 U/L (45-117); ANION GAP 6 mmol/L (5-15); BILIRUBIN,TOTAL 0.5 mg/dL (0.2-1.0); CREATININE 0.91 mg/dL (0.7-1.3)
[2020-03-11 06:50] VITALS: BP 134/82
[2020-03-11] MEDS ORDERED: POTASSIUM CHLORIDE 20 MEQ TAB.ER.PRT PO ONE (08:00)
[2020-03-11] MEDS: INSULIN LISPRO 100 UNITS/ML, PEN SQ-INSULIN SCH ×4 (08:20→20:54)
[2020-03-11] MEDS: LOSARTAN 100 MG TAB PO SCH (08:26)
[2020-03-11] MEDS: CEFTRIAXONE PMX 2GM/50ML 50 ML IV SCH (08:26)
[2020-03-11] MEDS: HYDROCHLOROTHIAZIDE 25 MG TABLET PO SCH (08:26)
[2020-03-11] MEDS: GABAPENTIN 100 MG CAPSULE PO SCH ×3 (08:26→20:52)
[2020-03-11] MEDS: AMLODIPINE 10 MG TAB PO SCH (08:26)
[2020-03-11] MEDS: ASPIRIN 81 MG TABLET EC PO SCH (08:26)
[2020-03-11] MEDS: INSULIN GLARGINE 100 UNITS/ML, PEN SQ-INSULIN SCH ×2 (08:46→20:54)
[2020-03-11] MEDS ORDERED: SODIUM CHLORIDE 0.9% 1,000 ML IV SCH (11:00)
[2020-03-11 12:25] VITALS: BP 146/87
[2020-03-11] MEDS: morphine SULFATE 10 MG/ML, 1ML IVPush PRN (16:51)
[2020-03-11] MEDS: CIPROFLOXACIN/HYDROCORTISONE EAR SUSP 0.2-1%, 10ML LEFT EAR SCH ×2 (17:39→22:03)
[2020-03-11 20:45] VITALS: BP 164/91
[2020-03-11] MEDS: DOXYCYCLINE 100MG TABLET PO SCH (20:52)
[2020-03-11] MEDS ORDERED: ATORVASTATIN 80 MG TABLET PO SCH (21:00)
[2020-03-11 23:00] VITALS: BP 146/79
[2020-03-12] MEDS: OXYcodone IR 5MG TABLET PO PRN ×4 (02:04→15:02)
[2020-03-12 02:07] VITALS: BP 147/91
[2020-03-12] MEDS ORDERED: METOPROLOL SUCCINATE 25 MG TAB.ER.24H PO SCH (06:00)
[2020-03-12] MEDS: CHLORHEXIDINE 15 ML UDC MM SCH ×2 (06:10→10:58)
[2020-03-12] MEDS: INSULIN LISPRO 100 UNITS/ML, PEN SQ-INSULIN SCH ×2 (07:00→11:00)
[2020-03-12 07:10] VITALS: BP 149/83
[2020-03-12] MEDS: INSULIN GLARGINE 100 UNITS/ML, PEN SQ-INSULIN SCH (07:59)
[2020-03-12] MEDS: CEFTRIAXONE PMX 2GM/50ML 50 ML IV SCH (08:00)
[2020-03-12] MEDS: ASPIRIN 81 MG TABLET EC PO SCH (08:01)
[2020-03-12] MEDS: AMLODIPINE 10 MG TAB PO SCH (08:01)
[2020-03-12] MEDS: DOXYCYCLINE 100MG TABLET PO SCH (08:01)
[2020-03-12] MEDS: GABAPENTIN 100 MG CAPSULE PO SCH (08:01)
[2020-03-12] MEDS: HYDROCHLOROTHIAZIDE 25 MG TABLET PO SCH (08:01)
[2020-03-12] MEDS: LOSARTAN 100 MG TAB PO SCH (08:01)
[2020-03-12] MEDS: CIPROFLOXACIN/HYDROCORTISONE EAR SUSP 0.2-1%, 10ML LEFT EAR SCH (10:59)
[2020-03-12] MEDS ORDERED: SODIUM CHLORIDE 0.9% 1,000 ML IV SCH (11:00)
[2020-03-12] MEDS ORDERED: FENTANYL PF 100 MCG/2ML ONE (12:23)
[2020-03-12] MEDS ORDERED: MIDAZOLAM 1 MG/ML, 2ML ONE (12:23)
[2020-03-12] MEDS ORDERED: HEPARIN 1,000 UNITS/ML, 10ML ONE (12:24)
[2020-03-12] MEDS ORDERED: LIDOCAINE-MPF 1%, 5ML ONE (12:24)
[2020-03-12] MEDS ORDERED: VERAPAMIL 2.5 MG/ML, 2ML ONE (12:24)
[2020-03-12] MEDS ORDERED: BIVALIRUDIN 250 MG ONE (12:59)
[2020-03-12 13:21] VITALS: BP 130/76
[2020-03-12] MEDS: morphine SULFATE 10 MG/ML, 1ML IVPush PRN (13:58)
[2020-03-12] MEDS ORDERED: CEFU500T50 PO (15:52)
[2020-03-12] MEDS ORDERED: ATOR-2 PO (15:52)
[2020-03-12] MEDS ORDERED: CIPR10DR LEFT EAR (15:52)
[2020-03-12] MEDS ORDERED: METO25TA91 PO (15:52)
[2020-03-12] MEDS ORDERED: INSU100I13 SQ-INSULIN (15:52)
[2020-03-12] MEDS ORDERED: DOXY100T PO (15:52)
[2020-03-12] MEDS ORDERED: METF500T PO (15:52)
[2020-03-12] MEDS ORDERED: ISOS60TA36 PO (15:52)
[2020-03-12] MEDS ORDERED: HYDR25TA6 PO (15:52)
[2020-03-12] MEDS ORDERED: CHLO473M MM (15:52)
== END 2020-03-12 17:00 | disposition home or self-care (01) | DRG 192 ==
LOC: ED 16:45 → EDIP 18:06 → 5SO 18:59 → DCLOUNGE 03-12 16:46
PROVIDERS: ADMIT Family Medicine; ATTEND Internal Medicine
PROC: 4A023N7 Measurement of Cardiac Sampling and Pressure, Left Heart, Percutaneous Approach (ICD-10-PCS; principal; 2020-03-12)
PROC: B2111ZZ Fluoroscopy of Multiple Coronary Arteries using Low Osmolar Contrast (ICD-10-PCS; 2020-03-12)
PROC: B2151ZZ Fluoroscopy of Left Heart using Low Osmolar Contrast (ICD-10-PCS; 2020-03-12)
DX: R07.9 Chest pain, unspecified (principal); D69.6 Thrombocytopenia, unspecified; E10.65 Type 1 diabetes mellitus with hyperglycemia; E10.69 Type 1 diabetes mellitus with other specified complication; E66.9 Obesity, unspecified; E10.51 Type 1 diabetes mellitus with diabetic peripheral angiopathy without gangrene; E78.5 Hyperlipidemia, unspecified; E87.6 Hypokalemia; F11.20 Opioid dependence, uncomplicated; F41.1 Generalized anxiety disorder; G89.29 Other chronic pain; H66.90 Otitis media, unspecified, unspecified ear; I10 Essential (primary) hypertension; I16.0 Hypertensive urgency; I25.10 Atherosclerotic heart disease of native coronary artery without angina pectoris; I49.3 Ventricular premature depolarization; K02.9 Dental caries, unspecified; K76.0 Fatty (change of) liver, not elsewhere classified; M79.7 Fibromyalgia; Z82.3 Family history of stroke; Z83.3 Family history of diabetes mellitus; Z86.73 Personal history of transient ischemic attack (TIA), and cerebral infarction without residual deficits; Z87.11 Personal history of peptic ulcer disease; Z87.891 Personal history of nicotine dependence; Z68.38 Body mass index [BMI] 38.0-38.9, adult
CPT/HCPCS: 36415; 71045; 80048; 80053; 80074; 81001; 82010; 82728; 82803; 82962; 83036; 83540; 83550; 83690; 83735; 83880; 84484; 85025; 85379; 85610; 90686; 93005; 96361; 96374; 96375; G0378; J0583; J0696; J1644; J1650; J2250; J2405; J3010; J1815; J2270; J7030

== ENCOUNTER 2020-03-14 01:26 | Emergency (ER) | payer MEDICAID ==
[~2020-03-14] VITALS: Ht 167.6 cm; Wt 109.5 kg
[~2020-03-14 01:26] MED LIST changes: +ATOR-2 PO; +CEFU500T50 PO; +CIPR10DR LEFT EAR; +DOXY100T PO; +HYDR25TA6 PO; +INSU100I13 SQ-INSULIN; +METF500T PO; +METO25TA91 PO; +POLY17PO5 PO
--- NOTE | 2020-03-14 01:36 | NUR ---
ASSOCIATE AGENT INSURANCE SALES: EKG DONE IN TRIAGE
--- NOTE | 2020-03-14 01:56 | NUR ---
BREAK RN: THIS IS A 54 YO MALE COMING IN FOR HIGH BP AT HOME, WITH ASSOCIATED CHEST PRESSURE AND HEADACHE STARTING LAST NIGHT. PATIENT TOOK HYDROCODONE AND NITROGLYCERIN WITH SOME RELIEF. CHEST PAIN IS LOCATED STERNALLY AND RADIATES ACROSS CHEST AND INTO BACK, WORSE WITH ACTIVITY. PATIENT HAD ANGIOCATH DONE TWO DAYS AGO, NO STENTS PLACED. ALL MONITORING IN PLACE, NSR ON CARBON DIOXIDE OPERATOR. PATIENT IS A&OX4, GCS15, MOVES ALL EXTREMITIES WELL, STRENGTH AND SENSATION INTACT THROUGHOUT WITH VERY MILD RIGHT SIDED WEAKNESS DUE TO STROKE IN 2019. LATASHA RADFORD AT THIS TIME, DAUGHTER IN ROOM, ERP TO ROOM FOR EVAL. CALL LIGHT IN REACH
[2020-03-14] MEDS ORDERED: ASPIRIN 81 MG TABLET CHEW PO ONE (02:00)
[2020-03-14] MEDS ORDERED: ASPIRIN 81 MG TABLET CHEW ONE (02:10)
[2020-03-14 02:17] LABS: BASOPHILS # (AUTO) 0.03 x10^3/uL (0-0.1); BASOPHILS % (AUTO) 1 % (0-1); EOSINOPHILS # (AUTO) 0.09 x10^3/uL (0-0.4); EOSINOPHILS % (AUTO) 2 % (1-7); LYMPHOCYTES # (AUTO) 2.17 x10^3/uL (1-3.4); LYMPHOCYTES % (AUTO) 38 % (22-44); MD NO; MEAN CORPUSCULAR HEMOGLOBIN 25.3 pg (27.5-34.5); MEAN CORPUSCULAR HGB CONC 32.2 g/dL (33.2-36.2); MEAN PLATELET VOLUME 9.2 fL (7.4-10.4); MONOCYTES # (AUTO) 0.49 x10^3/uL (0.2-0.8); MONOCYTES % (AUTO) 9 % (2-9); NEUTROPHILS # (AUTO) 2.95 x10^3/uL (1.8-6.8); NEUTROPHILS % (AUTO) 52 % (42-75); PLATELET COUNT 148 x10^3/uL (130-400); RED BLOOD COUNT 5.58 x10^6/uL (4.38-5.82); RED CELL DISTRIBUTION WIDTH 16.8 % (9.4-14.8)
--- NOTE | 2020-03-14 02:17 | NUR ---
BREAK RN: PATIENT MEDICATED PER EMAR
[2020-03-14 02:23] LABS: ALANINE AMINOTRANSFERASE 71 U/L (12-78); ALBUMIN 3.8 g/dL (3.4-5.0); ANION GAP 6 mmol/L (5-15); CHLORIDE 103 mmol/L (98-107)
[2020-03-14 02:28] LABS: ALKALINE PHOSPHATASE 107 U/L (45-117); BILIRUBIN,TOTAL 0.3 mg/dL (0.2-1.0); CREATININE 0.94 mg/dL (0.7-1.3); TOTAL PROTEIN 7.4 g/dL (6.4-8.2); TROPONIN I < 0.015 ng/mL (0.000-0.045)
--- NOTE | 2020-03-14 02:45 | NUR ---
1st contact c pt. resting on cart in nad. states feeling a little bit better. states took ntg about 2 hrs ago & has had a h/a since then. denies need for tyl. aware of lower bp. denies any needs. aware of pending labs. will ctm. call light in reach.
[2020-03-14 02:52] VITALS: BP 159/71
== END 2020-03-14 03:40 | disposition home or self-care (01) ==
LOC: ED 02:12
DX: R07.89 Other chest pain (principal); K21.9 Gastro-esophageal reflux disease without esophagitis; I10 Essential (primary) hypertension; I25.10 Atherosclerotic heart disease of native coronary artery without angina pectoris; E78.5 Hyperlipidemia, unspecified; E11.9 Type 2 diabetes mellitus without complications; Z90.49 Acquired absence of other specified parts of digestive tract; Z87.891 Personal history of nicotine dependence
CPT/HCPCS: 36415; 71045; 80053; 83880; 84484; 85025; 93005; 99285

== ENCOUNTER 2020-04-06 18:50 | Emergency (ER) | payer MEDICAID ==
[~2020-04-06] VITALS: Ht 167.6 cm; Wt 111.2 kg
--- NOTE | 2020-04-06 19:12 | NUR ---
pt to room from lobby
[2020-04-06 19:25] LABS: BASOPHILS % (AUTO) 1 % (0-1); EOSINOPHILS % (AUTO) 1 % (1-7); LYMPHOCYTES % (AUTO) 39 % (22-44); MEAN CORPUSCULAR HEMOGLOBIN 24.9 pg (27.5-34.5); MEAN CORPUSCULAR HGB CONC 32.5 g/dL (33.2-36.2); MEAN PLATELET VOLUME 8.4 fL (7.4-10.4); MONOCYTES % (AUTO) 10 % (2-9); NEUTROPHILS % (AUTO) 50 % (42-75); PLATELET COUNT 131 x10^3/uL (130-400); RED BLOOD COUNT 5.71 x10^6/uL (4.38-5.82); RED CELL DISTRIBUTION WIDTH 17.2 % (9.4-14.8)
[2020-04-06 19:27] LABS: MD NO
[2020-04-06 19:32] LABS: ANION GAP 8 mmol/L (5-15); CALCIUM 8.8 mg/dL (8.5-10.1); CHLORIDE 103 mmol/L (98-107); CREATININE 0.84 mg/dL (0.7-1.3)
[2020-04-06] MEDS ORDERED: AMPICILLIN/SULBACTAM 1,500 MG in SODIUM CHLORIDE 0.9% 50 ML IV ONE (20:00)
[2020-04-06] MEDS ORDERED: ONDANSETRON 2MG/ML, 2ML IVPush ONE (20:00)
[2020-04-06] MEDS ORDERED: SODIUM CHLORIDE 0.9% 1,000ML IVBOLUS ONE (20:00)
[2020-04-06] MEDS ORDERED: MORPHINE SULFATE 4 MG/ML, 1ML ONE ×2 (20:08→21:08)
[2020-04-06] MEDS: MORPHINE SULFATE 4 MG/ML, 1ML IVPush PRN ×2 (20:15→21:10)
[2020-04-06 20:18] VITALS: BP 174/83
--- NOTE | 2020-04-06 21:36 | NUR ---
Tye walker in [facility] - 04/06/20 at 2137 by NICHOLAS Bladder scan >1000 mL. Provider aware. Plan for opal
[2020-04-06] MEDS ORDERED: BUPIVACAINE 0.25% INFIL ONE (23:30)
[2020-04-06] MEDS ORDERED: LIDOCAINE-MPF 1%, 5ML INFIL ONE (23:30)
[2020-04-06] MEDS ORDERED: BUPIVACAINE 0.25% ONE (23:46)
[2020-04-06] MEDS ORDERED: LIDOCAINE-MPF 1%, 5ML ONE (23:46)
== END 2020-04-07 00:08 | disposition home or self-care (01) ==
LOC: ED 20:35
DX: K02.9 Dental caries, unspecified (principal); J02.9 Acute pharyngitis, unspecified; E10.65 Type 1 diabetes mellitus with hyperglycemia
CPT/HCPCS: 36415; 80048; 85025; 96365; 96375; 96376; 99284; J0295; J2270; J2405

== ENCOUNTER 2020-04-21 17:17 | Inpatient (IN) | payer MEDICAID ==
[~2020-04-21] VITALS: Ht 167.6 cm; Wt 109.2 kg
[~2020-04-21 17:17] MED LIST changes: +AMLO-211 PO; -AMLO10TA8 PO
--- NOTE | 2020-04-21 17:53 | NUR ---
PT AMBULATORY TO ROOM AT THIS TIME. PT REFUSED WC
[2020-04-21 18:05] LABS: BASOPHILS % (AUTO) 1 % (0-1); EOSINOPHILS % (AUTO) 0 % (1-7); LYMPHOCYTES % (AUTO) 23 % (22-44); MEAN CORPUSCULAR HEMOGLOBIN 25.7 pg (27.5-34.5); MEAN CORPUSCULAR HGB CONC 33.8 g/dL (33.2-36.2); MONOCYTES % (AUTO) 7 % (2-9); NEUTROPHILS % (AUTO) 69 % (42-75); PLATELET COUNT 148 x10^3/uL (130-400); RED BLOOD COUNT 5.97 x10^6/uL (4.38-5.82)
[2020-04-21 18:08] LABS: MD NO
[2020-04-21 18:13] LABS: ALANINE AMINOTRANSFERASE 83 U/L (12-78); ALBUMIN 4.2 g/dL (3.4-5.0); ANION GAP 8 mmol/L (5-15); CALCIUM 9.4 mg/dL (8.5-10.1); CHLORIDE 102 mmol/L (98-107)
[2020-04-21 18:18] LABS: ALKALINE PHOSPHATASE 96 U/L (45-117); BILIRUBIN,TOTAL 0.6 mg/dL (0.2-1.0); CREATININE 1.09 mg/dL (0.7-1.3); TOTAL PROTEIN 8.2 g/dL (6.4-8.2); TROPONIN I < 0.015 ng/mL (0.000-0.045)
[2020-04-21] MEDS ORDERED: ONDANSETRON 2MG/ML, 2ML ONE ×2 (18:20→19:49)
[2020-04-21] MEDS ORDERED: ASPIRIN 81 MG TABLET CHEW ONE (18:20)
[2020-04-21] MEDS ORDERED: MORPHINE SULFATE 4 MG/ML, 1ML ONE (18:20)
[2020-04-21] MEDS ORDERED: ONDANSETRON 2MG/ML, 2ML IVPush ONE ×2 (18:30→20:00)
[2020-04-21] MEDS ORDERED: ASPIRIN 81 MG TABLET CHEW PO ONE (18:30)
[2020-04-21] MEDS ORDERED: MORPHINE SULFATE 4 MG/ML, 1ML IVPush PRN (18:30)
[2020-04-21] MEDS ORDERED: HYDROmorphone 1 MG/ML, 1ML INJ ONE (19:48)
[2020-04-21] MEDS ORDERED: POTASSIUM CHLORIDE 20 MEQ TAB.ER.PRT ONE (19:52)
[2020-04-21] MEDS ORDERED: HYDROmorphone 1 MG/ML, 1ML INJ IVPush PRN (20:00)
[2020-04-21] MEDS ORDERED: AMPICILLIN/SULBACTAM 3 GM in SODIUM CHLORIDE 0.9% 100 ML IV SCH (20:00)
[2020-04-21] MEDS ORDERED: POTASSIUM CHLORIDE 20 MEQ TAB.ER.PRT PO ONE (20:00)
--- NOTE | 2020-04-21 21:48 | NUR ---
Tye walker in [facility] - 04/21/20 at 2148 by WINTER Report given to RN. Sarah
--- NOTE | 2020-04-21 21:49 | NUR ---
Report given to RASHEED Smith.
[2020-04-21 22:25] VITALS: BP 159/92
[2020-04-21 22:27] VITALS: BP 159/92
[2020-04-21] MEDS ORDERED: ONDANSETRON 2MG/ML, 2ML IVPush PRN (23:00)
[2020-04-21] MEDS ORDERED: LABETALOL 5MG/ML, 20ML IVPush PRN (23:00)
[2020-04-21] MEDS ORDERED: MELATONIN 5 MG TABLET PO PRN (23:00)
[2020-04-21] MEDS ORDERED: NITROGLYCERIN 0.4 MG BOTTLE (25 TABS) SL PRN (23:00)
[2020-04-21] MEDS ORDERED: DOCUSATE 100 MG CAPSULE PO PRN (23:00)
[2020-04-21] MEDS ORDERED: LIDODERM 5% PATCH TD PRN (23:00)
[2020-04-22 01:23] VITALS: BP 151/74
[2020-04-22] MEDS: HEPARIN 5,000 UNITS/ML, 1ML SQ SCH ×2 (01:37→08:30)
[2020-04-22] MEDS: HYDROcodone/APAP 10/325 MG TABLET PO PRN ×3 (01:37→10:13)
[2020-04-22] MEDS: INSULIN LISPRO 100 UNITS/ML, PEN SQ-INSULIN SCH ×3 (01:38→11:28)
[2020-04-22 02:20] LABS: TROPONIN I < 0.015 ng/mL (0.000-0.045)
[2020-04-22 05:44] LABS: BASOPHILS % (AUTO) 1 % (0-1); EOSINOPHILS % (AUTO) 1 % (1-7); LYMPHOCYTES % (AUTO) 39 % (22-44); MEAN CORPUSCULAR HEMOGLOBIN 25.3 pg (27.5-34.5); MEAN PLATELET VOLUME 8.7 fL (7.4-10.4); MONOCYTES % (AUTO) 9 % (2-9); NEUTROPHILS % (AUTO) 51 % (42-75); PLATELET COUNT 132 x10^3/uL (130-400); RED BLOOD COUNT 5.58 x10^6/uL (4.38-5.82); RED CELL DISTRIBUTION WIDTH 17.6 % (9.4-14.8)
[2020-04-22 05:47] LABS: MD NO
[2020-04-22 05:57] LABS: ANION GAP 5 mmol/L (5-15); CALCIUM 8.9 mg/dL (8.5-10.1); CHLORIDE 103 mmol/L (98-107); CREATININE 0.98 mg/dL (0.7-1.3)
[2020-04-22 06:00] LABS: TROPONIN I < 0.015 ng/mL (0.000-0.045)
[2020-04-22] MEDS ORDERED: AMPICILLIN/SULBACTAM 3 GM in SODIUM CHLORIDE 0.9% 100 ML IV SCH (06:00)
[2020-04-22] MEDS ORDERED: AMLO10TA4 PO (07:24)
[2020-04-22 09:00] VITALS: BP 148/80
[2020-04-22] MEDS ORDERED: ISOSORBIDE MONONITRATE ER 60 MG TABLET PO SCH (09:00)
[2020-04-22] MEDS ORDERED: POTASSIUM CHLORIDE 20 MEQ TAB.ER.PRT PO ONE (09:00)
[2020-04-22] MEDS ORDERED: METOPROLOL SUCCINATE 25 MG TAB.ER.24H PO SCH (09:00)
[2020-04-22] MEDS ORDERED: ASPIRIN 81 MG TABLET EC PO SCH (09:00)
[2020-04-22] MEDS ORDERED: DULOXETINE 30 MG CAPSULE.DR PO SCH (09:00)
[2020-04-22] MEDS ORDERED: DULO30CA2 PO (11:01)
[2020-04-22] MEDS ORDERED: ATORVASTATIN 80 MG TABLET PO SCH (21:00)
== END 2020-04-22 13:31 | disposition home or self-care (01) | DRG 199 ==
LOC: ED 19:45 → EDIP 20:27 → 5SO 22:42 → DCLOUNGE 04-22 13:03
PROVIDERS: ADMIT Family Medicine; ATTEND Hospitalist
DX: I16.0 Hypertensive urgency (principal); R07.89 Other chest pain; E11.51 Type 2 diabetes mellitus with diabetic peripheral angiopathy without gangrene; E11.65 Type 2 diabetes mellitus with hyperglycemia; E11.69 Type 2 diabetes mellitus with other specified complication; E66.01 Morbid (severe) obesity due to excess calories; E78.5 Hyperlipidemia, unspecified; F11.20 Opioid dependence, uncomplicated; F41.1 Generalized anxiety disorder; G89.29 Other chronic pain; I11.9 Hypertensive heart disease without heart failure; I25.10 Atherosclerotic heart disease of native coronary artery without angina pectoris; K02.9 Dental caries, unspecified; K04.7 Periapical abscess without sinus; Z79.4 Long term (current) use of insulin; Z82.3 Family history of stroke; Z83.3 Family history of diabetes mellitus; Z86.73 Personal history of transient ischemic attack (TIA), and cerebral infarction without residual deficits; Z87.891 Personal history of nicotine dependence; Z68.38 Body mass index [BMI] 38.0-38.9, adult
CPT/HCPCS: 36415; 70450; 71045; 80048; 80053; 82962; 84484; 85025; 93005; G0378; J0295; J1170; J1644; J2405; J1815; J2270

== ENCOUNTER 2020-06-23 07:54 | Emergency (ER) | payer MEDICAID ==
[~2020-06-23] VITALS: Ht 167.6 cm; Wt 109.0 kg
[~2020-06-23 07:54] MED LIST changes: +AMLO10TA4 PO; +DULO30CA2 PO
[2020-06-23] MEDS ORDERED: ASPIRIN 81 MG TABLET CHEW PO ONE (08:30)
[2020-06-23] MEDS ORDERED: SODIUM CHLORIDE FLUSH 10ML SYR IVF ONE (08:30)
[2020-06-23] MEDS ORDERED: ASPIRIN 81 MG TABLET CHEW ONE (08:41)
--- NOTE | 2020-06-23 08:48 | NUR ---
PT PRESENTS TO ED WITH ACUTE ON CHRONIC CP, LBP, AND ACUTE LEFT LEG PAIN THAT RADIATES DOWN PT'S LEG. PT REPORTS CP WORSENED YESTERDAY, INTERMITTENTLY SHARP AND ACHING. PT TOOK NITRO PRIOR TO COMING TO ED WITH NO RELIEF. PT AMBULATES WELL INDEPENDENTLY. AWAITING ORDERS.
[2020-06-23 09:07] LABS: BASOPHILS % (AUTO) 1 % (0-1); EOSINOPHILS % (AUTO) 0 % (1-7); LYMPHOCYTES % (AUTO) 24 % (22-44); MEAN CORPUSCULAR HEMOGLOBIN 26.1 pg (27.5-34.5); MEAN CORPUSCULAR HGB CONC 33.7 g/dL (33.2-36.2); MEAN PLATELET VOLUME 8.7 fL (7.4-10.4); MONOCYTES % (AUTO) 7 % (2-9); NEUTROPHILS % (AUTO) 67 % (42-75); PLATELET COUNT 143 x10^3/uL (130-400); RED BLOOD COUNT 5.81 x10^6/uL (4.38-5.82); RED CELL DISTRIBUTION WIDTH 17.7 % (9.4-14.8)
[2020-06-23 09:09] LABS: MD NO
[2020-06-23 09:15] LABS: ALANINE AMINOTRANSFERASE 72 U/L (12-78); ANION GAP 8 mmol/L (5-15); CALCIUM 9.5 mg/dL (8.5-10.1); CHLORIDE 104 mmol/L (98-107); CREATININE 1.11 mg/dL (0.7-1.3)
[2020-06-23 09:20] LABS: ALKALINE PHOSPHATASE 86 U/L (45-117); BILIRUBIN,TOTAL 0.5 mg/dL (0.2-1.0); TOTAL PROTEIN 7.5 g/dL (6.4-8.2); TROPONIN I < 0.015 ng/mL (0.000-0.045)
[2020-06-23] MEDS ORDERED: MORPHINE SULFATE 4 MG/ML, 1ML ONE (09:32)
[2020-06-23] MEDS ORDERED: ONDANSETRON 2MG/ML, 2ML ONE (09:32)
[2020-06-23] MEDS ORDERED: MORPHINE SULFATE 4 MG/ML, 1ML IVPush PRN (10:00)
[2020-06-23] MEDS ORDERED: ONDANSETRON 2MG/ML, 2ML IVPush ONE (10:00)
--- NOTE | 2020-06-23 10:13 | NUR ---
PT UP FOR RECHECK
--- NOTE | 2020-06-23 10:40 | NUR ---
PT REPORTS LITTLE RELIEF FROM PAIN MEDICATIONS. DISCUSSION WITH VALENTINA DOSHI REGARDING FINDINGS. PT IS NO LONGER RESTLESS OR MOANING, AND HAS TAKEN INTEREST IN FINDING HIS REMOTE TO WATCH TELEVISION. AWAITING ERMD EVALUATION.
--- NOTE | 2020-06-23 11:13 | NUR ---
DR CONTRERAS IN TO ASSESS PT. PT VERY TENDER TO LOW BACK, AND ALONG LEFT BUTTOCK. DISCUSSION WITH PT REGARDING SCIATICA.
[2020-06-23] MEDS ORDERED: METHOCARBAMOL 750 MG TABLET PO ONE (11:30)
[2020-06-23 12:06] VITALS: BP 150/79
[2020-06-23] MEDS ORDERED: METHOCARBAMOL 750 MG TABLET ONE (12:09)
== END 2020-06-23 12:33 | disposition home or self-care (01) ==
LOC: ED 08:21
DX: M54.16 Radiculopathy, lumbar region (principal); G89.29 Other chronic pain; M54.5 Low back pain; R07.89 Other chest pain; M79.605 Pain in left leg; Z88.1 Allergy status to other antibiotic agents; Z88.6 Allergy status to analgesic agent
CPT/HCPCS: 36415; 71045; 80053; 83690; 83880; 84484; 85025; 85379; 93005; 93971; 96374; 96375; 99285; J2270; J2405

== ENCOUNTER 2020-07-12 00:18 | Emergency (ER) | payer MEDICAID ==
[~2020-07-12] VITALS: Ht 167.6 cm; Wt 111.0 kg
[~2020-07-12 00:18] MED LIST changes: +HYDR-1067 PO; -HYDR-3652 PO
[2020-07-12] MEDS ORDERED: ACETAMINOPHEN 500 MG TABLET PO ONE (01:00)
[2020-07-12] MEDS ORDERED: SODIUM CHLORIDE FLUSH 10ML SYR IVF ONE (01:00)
[2020-07-12] MEDS ORDERED: SODIUM CHLORIDE 0.9% 1,000ML IVBOLUS ONE (01:00)
--- NOTE | 2020-07-12 01:05 | NUR ---
PT REFUSED TYLENOL, STATES HE TAKES MEDS AT HOME WITH TYLENOL IN IT. PT ON MONITOR,A&O, IV PLACED, LABS SENT. PT CALM IN BED DENIES ANYTHING FURTHER
[2020-07-12 01:18] LABS: BASOPHILS % (AUTO) 1 % (0-1); EOSINOPHILS % (AUTO) 1 % (1-7); LYMPHOCYTES % (AUTO) 27 % (22-44); MD NO; MEAN CORPUSCULAR HEMOGLOBIN 26.4 pg (27.5-34.5); MEAN CORPUSCULAR HGB CONC 33.7 g/dL (33.2-36.2); MEAN PLATELET VOLUME 8.9 fL (7.4-10.4); MONOCYTES % (AUTO) 9 % (2-9); NEUTROPHILS % (AUTO) 63 % (42-75); PLATELET COUNT 110 x10^3/uL (130-400); RED BLOOD COUNT 5.42 x10^6/uL (4.38-5.82); RED CELL DISTRIBUTION WIDTH 17.5 % (9.4-14.8)
[2020-07-12 01:29] LABS: ALANINE AMINOTRANSFERASE 90 U/L (12-78); ALBUMIN 3.7 g/dL (3.4-5.0); ANION GAP 9 mmol/L (5-15); CALCIUM 8.4 mg/dL (8.5-10.1); CHLORIDE 103 mmol/L (98-107); CREATININE 1.03 mg/dL (0.7-1.3)
[2020-07-12 01:31] LABS: ALKALINE PHOSPHATASE 108 U/L (45-117); BILIRUBIN,TOTAL 0.4 mg/dL (0.2-1.0); TOTAL PROTEIN 7.2 g/dL (6.4-8.2)
[2020-07-12] MEDS ORDERED: IBUPROFEN 600 MG TABLET ONE (02:50)
[2020-07-12] MEDS ORDERED: HYDROcodone/APAP 5/325 TABLET ONE (02:51)
[2020-07-12 02:55] VITALS: BP 124/76
--- NOTE | 2020-07-12 02:56 | NUR ---
Assist RN: medicated patient per mar. Patient to be d/c.
[2020-07-12] MEDS ORDERED: HYDROcodone/APAP 5/325 TABLET PO ONE (03:00)
[2020-07-12] MEDS ORDERED: IBUPROFEN 600 MG TABLET PO ONE (03:00)
--- NOTE | 2020-07-12 03:15 | NUR ---
pt dc'd with instrcution and states understanding. Pt ambulatory out of ed with family who is driving patient. patient instructed no to drive.
== END 2020-07-12 03:17 | disposition home or self-care (01) ==
LOC: ED 01:03
DX: H66.002 Acute suppurative otitis media without spontaneous rupture of ear drum, left ear (principal); E11.65 Type 2 diabetes mellitus with hyperglycemia; J02.9 Acute pharyngitis, unspecified; R50.9 Fever, unspecified; I25.10 Atherosclerotic heart disease of native coronary artery without angina pectoris; K21.9 Gastro-esophageal reflux disease without esophagitis; Z90.49 Acquired absence of other specified parts of digestive tract; Z88.1 Allergy status to other antibiotic agents; Z88.6 Allergy status to analgesic agent; Z88.8 Allergy status to other drugs, medicaments and biological substances
CPT/HCPCS: 36415; 80053; 82962; 85025; 96360; 99283; J7030

== ENCOUNTER 2020-07-19 21:37 | Emergency (ER) | payer MEDICAID ==
[~2020-07-19] VITALS: Ht 170.2 cm; Wt 109.3 kg
[2020-07-19] MEDS ORDERED: ACETAMINOPHEN 500 MG TABLET ONE (22:37)
[2020-07-19] MEDS ORDERED: MAALOX/HYOSCYAMINE/LIDOCAINE 45 ML BTL ONE (22:37)
--- NOTE | 2020-07-19 22:45 | NUR ---
PT REFUSED GI COCKTAIL AND APAP. PT REQUESTING OXYCODONE FOR BACK PAIN. NOTIFIED. N/O RECEIVED FOR PAIN MED.
[2020-07-19] MEDS ORDERED: HYDROcodone/APAP 10/325 MG TABLET ONE (22:47)
[2020-07-19] MEDS ORDERED: ACETAMINOPHEN 325 MG TABLET PO ONE (23:00)
[2020-07-19] MEDS ORDERED: MAALOX/HYOSCYAMINE/LIDOCAINE 45 ML BTL PO ONE (23:00)
[2020-07-19] MEDS ORDERED: HYDROcodone/APAP 10/325 MG TABLET PO ONE (23:00)
[2020-07-19 23:06] LABS: BASOPHILS % (AUTO) 1 % (0-1); EOSINOPHILS % (AUTO) 1 % (1-7); LYMPHOCYTES % (AUTO) 35 % (22-44); MEAN CORPUSCULAR HEMOGLOBIN 26.5 pg (27.5-34.5); MEAN PLATELET VOLUME 8.3 fL (7.4-10.4); MONOCYTES % (AUTO) 8 % (2-9); NEUTROPHILS % (AUTO) 55 % (42-75); PLATELET COUNT 132 x10^3/uL (130-400); RED BLOOD COUNT 5.48 x10^6/uL (4.38-5.82); RED CELL DISTRIBUTION WIDTH 17.5 % (9.4-14.8)
[2020-07-19 23:07] LABS: MD NO
--- NOTE | 2020-07-19 23:07 | NUR ---
BEDSIDE REPORT RECEIVED FROM MESFIN IQBAL
[2020-07-19 23:14] LABS: ALBUMIN 3.8 g/dL (3.4-5.0); ANION GAP 7 mmol/L (5-15); CALCIUM 9.1 mg/dL (8.5-10.1); CHLORIDE 103 mmol/L (98-107); CREATININE 0.89 mg/dL (0.7-1.3)
[2020-07-19 23:18] LABS: TROPONIN I < 0.015 ng/mL (0.000-0.045)
[2020-07-19 23:55] VITALS: BP 157/80
--- NOTE | 2020-07-20 00:14 | NUR ---
discharge instructions reviewed with patient and son at bedside. no further questions at this time. all personal belongings with patient on dc. no SOB. no IV placed during this visit.
== END 2020-07-20 00:18 | disposition home or self-care (01) ==
LOC: ED 22:52
DX: R07.89 Other chest pain (principal); I10 Essential (primary) hypertension; E11.9 Type 2 diabetes mellitus without complications; K21.9 Gastro-esophageal reflux disease without esophagitis; E78.5 Hyperlipidemia, unspecified; Z88.9 Allergy status to unspecified drugs, medicaments and biological substances; Z90.49 Acquired absence of other specified parts of digestive tract; Z79.899 Other long term (current) drug therapy
CPT/HCPCS: 36415; 80048; 82040; 82962; 84484; 85025; 93005; 99284

== ENCOUNTER 2020-09-20 22:39 | Inpatient (IN) | payer MEDICAID ==
[~2020-09-20] VITALS: Ht 170.2 cm; Wt 108.0 kg
[~2020-09-20 22:39] MED LIST changes: -CIPR500T3 PO; +CIPR500T4 PO; -LISI40TA PO; +LISI40TA9 PO
--- NOTE | 2020-09-20 22:55 | NUR ---
Code Neuro called at [id number] and neurology called at 0722
--- NOTE | 2020-09-20 23:02 | NUR ---
Patient presents to ER c/o left side weakness and numbness. Numbness has since resided. Patient has a hx of stroke with left side residual effects; mostly lower extremities. Per family, symptom onset was approx 1944.
[2020-09-20] MEDS ORDERED: LABETALOL 5MG/ML, 20ML IVPush STA (23:05)
[2020-09-20 23:09] LABS: BASOPHILS % (AUTO) 1 % (0-1); EOSINOPHILS % (AUTO) 1 % (1-7); LYMPHOCYTES % (AUTO) 30 % (22-44); MEAN CORPUSCULAR HGB CONC 33.6 g/dL (33.2-36.2); MEAN PLATELET VOLUME 8.8 fL (7.4-10.4); MONOCYTES % (AUTO) 9 % (2-9); NEUTROPHILS % (AUTO) 59 % (42-75); PLATELET COUNT 134 x10^3/uL (130-400); RED BLOOD COUNT 5.64 x10^6/uL (4.38-5.82); RED CELL DISTRIBUTION WIDTH 16.8 % (9.4-14.8)
[2020-09-20 23:20] LABS: INTERNATIONAL NORMALIZED RATIO 0.97 (0.93-1.1); PROTHROMBIN TIME 10.4 Seconds (9.6-11.5)
--- NOTE | 2020-09-20 23:20 | NUR ---
back from CT scan. Neurologist talking to patient now
[2020-09-20 23:29] LABS: MD NO
[2020-09-20] MEDS ORDERED: MORPHINE SULFATE 4 MG/ML, 1ML ONE (23:37)
--- NOTE | 2020-09-20 23:45 | NUR ---
Dr. Ohara at bedside for patient evaluation.
[2020-09-20] MEDS ORDERED: INSU100V8 SQ (23:54)
[2020-09-20] MEDS ORDERED: OMEP-110 PO (23:57)
[2020-09-21] MEDS ORDERED: morphine SULFATE 10 MG/ML, 1ML IVPush ONE
--- NOTE | 2020-09-21 00:02 | NUR ---
patient passed Dysphagia screen. able to drink water without choking / coughing.
--- NOTE | 2020-09-21 00:45 | NUR ---
report to RASHEED Phoenix
[2020-09-21] MEDS ORDERED: MORPHINE SULFATE 4 MG/ML, 1ML ONE (00:55)
--- NOTE | 2020-09-21 00:57 | NUR ---
still c/o headache. re-medicated.
[2020-09-21] MEDS ORDERED: ONDANSETRON 2MG/ML, 2ML IVPush PRN (01:00)
[2020-09-21] MEDS ORDERED: POLYETHYLENE GLYCOL 17 GM PACKET PO PRN (01:00)
[2020-09-21] MEDS ORDERED: BISACODYL 10 MG SUPP PR PRN (01:00)
[2020-09-21] MEDS ORDERED: DOCUSATE 100 MG CAPSULE PO PRN (01:00)
[2020-09-21] MEDS ORDERED: MORPHINE SULFATE 4 MG/ML, 1ML IVPush PRN (01:00)
[2020-09-21] MEDS ORDERED: hydrALAzine 20 MG/ML, 1ML IVPush PRN (01:00)
[2020-09-21] MEDS ORDERED: PROMETHAZINE 25 MG/ML, 1ML IM PRN (01:00)
[2020-09-21] MEDS ORDERED: POTASSIUM CHLORIDE 20 MEQ TAB.ER.PRT PO ONE (01:00)
[2020-09-21] MEDS ORDERED: ONDANSETRON ODT 4 MG PO PRN (01:00)
[2020-09-21] MEDS ORDERED: ACETAMINOPHEN 325 MG TABLET PO PRN (01:00)
[2020-09-21] MEDS ORDERED: INSULIN GLARGINE 100 UNITS/ML, PEN SQ-INSULIN SCH ×2 (01:00→21:00)
[2020-09-21] MEDS ORDERED: NITROGLYCERIN SINGLE TAB 0.4 MG SL PRN (01:00)
[2020-09-21] MEDS ORDERED: OMNIPAQUE 350 MG/ML, 100ML BOTTLE ONE (01:01)
[2020-09-21] MEDS ORDERED: METF-688 PO (01:41)
[2020-09-21] MEDS: CLOPIDOGREL 75 MG TABLET PO SCH ×2 (02:17→08:37)
[2020-09-21] MEDS: GABAPENTIN 100 MG CAPSULE PO SCH ×4 (02:17→21:18)
[2020-09-21] MEDS: ENOXAPARIN 40 MG/0.4 ML SQ SCH (02:17)
[2020-09-21] MEDS: ATORVASTATIN 80 MG TABLET PO SCH ×2 (02:17→21:18)
[2020-09-21 02:35] VITALS: BP 161/83
[2020-09-21] MEDS: HYDROcodone/APAP 10/325 MG TABLET PO PRN ×5 (03:09→21:18)
[2020-09-21] MEDS: INSULIN LISPRO 100 UNITS/ML, PEN SQ-INSULIN SCH ×5 (03:10→21:18)
[2020-09-21 05:33] LABS: BASOPHILS % (AUTO) 0 % (0-1); EOSINOPHILS % (AUTO) 1 % (1-7); LYMPHOCYTES % (AUTO) 34 % (22-44); MEAN CORPUSCULAR HEMOGLOBIN 27.1 pg (27.5-34.5); MEAN CORPUSCULAR HGB CONC 33.5 g/dL (33.2-36.2); MEAN PLATELET VOLUME 9.1 fL (7.4-10.4); MONOCYTES % (AUTO) 7 % (2-9); NEUTROPHILS % (AUTO) 58 % (42-75); PLATELET COUNT 123 x10^3/uL (130-400); RED BLOOD COUNT 5.08 x10^6/uL (4.38-5.82); RED CELL DISTRIBUTION WIDTH 16.7 % (9.4-14.8)
[2020-09-21 05:38] LABS: MD NO
[2020-09-21 05:44] LABS: ALBUMIN 3.5 g/dL (3.4-5.0); ANION GAP 5 mmol/L (5-15); CALCIUM 8.9 mg/dL (8.5-10.1); CHLORIDE 106 mmol/L (98-107)
[2020-09-21 05:54] LABS: ALANINE AMINOTRANSFERASE 74 U/L (12-78); ALKALINE PHOSPHATASE 112 U/L (45-117); BILIRUBIN,TOTAL 0.2 mg/dL (0.2-1.0); CHOL/HDL RATIO 4.4; CHOLESTEROL, TOTAL 148 mg/dL (140-239); HDL CHOL % 23 % (26-37); HDL CHOLESTEROL (DIRECT) 34 mg/dL (40-60); LDL CHOLESTEROL,CALCULATED 64 mg/dL (54-169); LDL/HDL RATIO 1.9 (0.5-3.0); TOTAL PROTEIN 6.8 g/dL (6.4-8.2); TRIGLYCERIDES 249 mg/dL (50-200); VLDL CHOLESTEROL 50 mg/dL (0-25)
[2020-09-21] MEDS: METOPROLOL SUCCINATE 25 MG TAB.ER.24H PO SCH (06:25)
[2020-09-21 07:17] VITALS: BP 167/90
[2020-09-21] MEDS: AMLODIPINE 10 MG TAB PO SCH (08:37)
[2020-09-21] MEDS: ASPIRIN 81 MG TABLET EC PO SCH (08:37)
[2020-09-21] MEDS: OMEPRAZOLE 20 MG CAPSULE.DR PO SCH (08:37)
[2020-09-21] MEDS: LOSARTAN 100 MG TAB PO SCH (08:37)
[2020-09-21] MEDS: ISOSORBIDE MONONITRATE ER 60 MG TABLET PO SCH (08:37)
[2020-09-21] MEDS: HYDROCHLOROTHIAZIDE 12.5 MG CAPSULE PO SCH (08:38)
[2020-09-21] MEDS: DULOXETINE 30 MG CAPSULE.DR PO SCH (08:38)
[2020-09-21] MEDS ORDERED: LORazepam 2 MG/ML, 1ML IVPush PRN (12:30)
[2020-09-21] MEDS ORDERED: OMNIPAQUE 350 MG/ML, 75ML BOTTLE ONE (12:39)
[2020-09-21 13:32] VITALS: BP 149/82
[2020-09-21 20:25] VITALS: BP 152/89
[2020-09-21] MEDS: VALPROATE SODIUM 500 MG in SODIUM CHLORIDE 0.9% 100 ML IV SCH ×2 (21:17→21:46)
[2020-09-22] MEDS: ENOXAPARIN 40 MG/0.4 ML SQ SCH (02:43)
[2020-09-22] MEDS: HYDROcodone/APAP 10/325 MG TABLET PO PRN ×2 (04:11→10:44)
[2020-09-22] MEDS: METOPROLOL SUCCINATE 25 MG TAB.ER.24H PO SCH (05:26)
[2020-09-22 06:44] VITALS: BP 160/79
[2020-09-22] MEDS: VALPROATE SODIUM 500 MG in SODIUM CHLORIDE 0.9% 100 ML IV SCH (09:07)
[2020-09-22] MEDS: ASPIRIN 81 MG TABLET EC PO SCH (09:09)
[2020-09-22] MEDS: HYDROCHLOROTHIAZIDE 12.5 MG CAPSULE PO SCH (09:09)
[2020-09-22] MEDS: GABAPENTIN 100 MG CAPSULE PO SCH (09:09)
[2020-09-22] MEDS: AMLODIPINE 10 MG TAB PO SCH (09:09)
[2020-09-22] MEDS: CLOPIDOGREL 75 MG TABLET PO SCH (09:09)
[2020-09-22] MEDS: OMEPRAZOLE 20 MG CAPSULE.DR PO SCH (09:09)
[2020-09-22] MEDS: DULOXETINE 30 MG CAPSULE.DR PO SCH (09:10)
[2020-09-22] MEDS: ISOSORBIDE MONONITRATE ER 60 MG TABLET PO SCH (09:10)
[2020-09-22] MEDS: LOSARTAN 100 MG TAB PO SCH (09:10)
[2020-09-22] MEDS: INSULIN LISPRO 100 UNITS/ML, PEN SQ-INSULIN SCH ×2 (09:11→12:12)
[2020-09-22 12:05] VITALS: BP 148/75
== END 2020-09-22 14:38 | disposition home or self-care (01) | DRG 54 ==
LOC: ED 23:08 → EDIP 23:52 → 4EST 09-21 01:06 → DCLOUNGE 09-22 14:26
PROVIDERS: ADMIT Internal Medicine; ATTEND Hospitalist
DX: G43.109 Migraine with aura, not intractable, without status migrainosus (principal); E11.65 Type 2 diabetes mellitus with hyperglycemia; E66.01 Morbid (severe) obesity due to excess calories; E78.5 Hyperlipidemia, unspecified; E87.6 Hypokalemia; G62.9 Polyneuropathy, unspecified; G89.29 Other chronic pain; I10 Essential (primary) hypertension; I25.10 Atherosclerotic heart disease of native coronary artery without angina pectoris; J32.0 Chronic maxillary sinusitis; K02.9 Dental caries, unspecified; K21.9 Gastro-esophageal reflux disease without esophagitis; M79.7 Fibromyalgia; M54.9 Dorsalgia, unspecified; R29.703 NIHSS score 3; Z79.4 Long term (current) use of insulin; I69.354 Hemiplegia and hemiparesis following cerebral infarction affecting left non-dominant side; Z68.37 Body mass index [BMI] 37.0-37.9, adult; Z79.82 Long term (current) use of aspirin; Z79.891 Long term (current) use of opiate analgesic; Z79.899 Other long term (current) drug therapy; Z82.3 Family history of stroke; Z83.3 Family history of diabetes mellitus; Z87.891 Personal history of nicotine dependence; Z90.49 Acquired absence of other specified parts of digestive tract; Z88.1 Allergy status to other antibiotic agents
CPT/HCPCS: 36415; 70450; 70487; 70496; 70498; 70551; 80047; 80053; 80061; 82962; 83036; 83735; 84100; 84443; 85025; 85610; 85730; 93005; 96374; 96376; C8929; G0378; J1650; Q9967; 92523-GN; J1815; J2060; J2270

== ENCOUNTER 2020-09-25 08:40 | Emergency (ER) | payer MEDICAID ==
[~2020-09-25] VITALS: Ht 167.6 cm; Wt 108.3 kg
[~2020-09-25 08:40] MED LIST changes: +METF-688 PO
--- NOTE | 2020-09-25 09:26 | NUR ---
VENDING MACHINE HOST/HOSTESS: PT AMBULATORY WITH USE OF CANE, TO ROOM AT THIS TIME.
[2020-09-25] MEDS ORDERED: SODIUM CHLORIDE 0.9% 1,000ML IVBOLUS ONE (10:30)
[2020-09-25] MEDS ORDERED: ACETAMINOPHEN 500 MG TABLET PO ONE (10:30)
[2020-09-25] MEDS ORDERED: PROCHLORPERAZINE 5 MG/ML, 2ML IVPush ONE (10:30)
[2020-09-25] MEDS ORDERED: SODIUM CHLORIDE FLUSH 10ML SYR IVF ONE (10:30)
[2020-09-25] MEDS ORDERED: DIPHENHYDRAMINE 50 MG/ML, 1ML IVPush ONE (10:30)
[2020-09-25] MEDS ORDERED: ACETAMINOPHEN 500 MG TABLET ONE (10:54)
[2020-09-25] MEDS ORDERED: PROCHLORPERAZINE 5 MG/ML, 2ML ONE (10:54)
[2020-09-25] MEDS ORDERED: DIPHENHYDRAMINE 25 MG CAPSULE ONE (10:55)
[2020-09-25] MEDS ORDERED: DIPHENHYDRAMINE 25 MG CAPSULE PO ONE (11:00)
[2020-09-25] MEDS ORDERED: PROCHLORPERAZINE 5 MG/ML, 2ML IM ONE (11:00)
--- NOTE | 2020-09-25 11:06 | NUR ---
INITIAL BENADRYL PACKAGE BNROKE WHEN ADMINISTERING TO PT. MEDICATION DISCARDED AND NEW BENADRYL SELECTED FROM [employer].
[2020-09-25 11:36] VITALS: BP 149/88
--- NOTE | 2020-09-25 11:37 | NUR ---
PT REC'VD DISCHARGE INSTRUCTIONS AND EDUCATION. PT HAD NO FURTHER QUESTIONS. PT AMBULATED TO DC AREA, STEADY GAIT.
== END 2020-09-25 11:43 | disposition home or self-care (01) ==
LOC: ED 09:52
DX: H66.92 Otitis media, unspecified, left ear (principal); K02.9 Dental caries, unspecified; E11.9 Type 2 diabetes mellitus without complications; I10 Essential (primary) hypertension; K21.9 Gastro-esophageal reflux disease without esophagitis; E78.5 Hyperlipidemia, unspecified; Z88.1 Allergy status to other antibiotic agents; Z88.8 Allergy status to other drugs, medicaments and biological substances; Z86.73 Personal history of transient ischemic attack (TIA), and cerebral infarction without residual deficits; Z90.49 Acquired absence of other specified parts of digestive tract; Z79.899 Other long term (current) drug therapy
CPT/HCPCS: 93005; 96372; 99283; J0780; Q0163

== ENCOUNTER 2020-10-18 22:53 | Emergency (ER) | payer MEDICAID ==
[~2020-10-18] VITALS: Ht 170.2 cm; Wt 111.4 kg
--- NOTE | 2020-10-18 23:46 | NUR ---
microwave engineer: pt form lobby to room 25
[2020-10-18 23:52] LABS: ALBUMIN 3.9 g/dL (3.4-5.0); ANION GAP 6 mmol/L (5-15); CALCIUM 8.6 mg/dL (8.5-10.1); CHLORIDE 108 mmol/L (98-107); CREATININE 1.13 mg/dL (0.7-1.3)
[2020-10-18 23:55] LABS: TROPONIN I < 0.015 ng/mL (0.000-0.045)
[2020-10-18 23:57] LABS: BASOPHILS % (AUTO) 1 % (0-1); EOSINOPHILS % (AUTO) 0 % (1-7); LYMPHOCYTES % (AUTO) 28 % (22-44); MEAN CORPUSCULAR HEMOGLOBIN 26.5 pg (27.5-34.5); MEAN PLATELET VOLUME 8.7 fL (7.4-10.4); MONOCYTES % (AUTO) 8 % (2-9); NEUTROPHILS % (AUTO) 62 % (42-75); PLATELET COUNT 134 x10^3/uL (130-400); RED BLOOD COUNT 5.36 x10^6/uL (4.38-5.82); RED CELL DISTRIBUTION WIDTH 16.4 % (9.4-14.8)
[2020-10-18 23:59] LABS: MD NO
--- NOTE | 2020-10-19 00:12 | NUR ---
PT CAME INTO ED FOR CP STARTING AROUND 1500. TOOK THREE NITRO DOSES WITHOUT RELIEF. PT REPORTED PAIN WAS STERNAL CHEST AREA, RADIATING TO BACK AND DOWN LEFT ARM. PULSES 2+ BILATERAL, NEURO INTACT. PLACED ON SPO2/BP/ECG MONITORING AT THIS TIME. VSS. BED IN LOWEST, RAILS ENGAGED, CALL LIGHT ON LAP, WCTM.
[2020-10-19] MEDS ORDERED: LORazepam 1MG TABLET PO ONE (00:30)
[2020-10-19] MEDS ORDERED: CEFDINIR 300 MG CAPSULE PO ONE (00:30)
[2020-10-19] MEDS ORDERED: LORazepam 1MG TABLET ONE (00:40)
[2020-10-19] MEDS ORDERED: CEFDINIR 300 MG CAPSULE ONE (00:40)
[2020-10-19 00:46] VITALS: BP 144/63
--- NOTE | 2020-10-19 01:15 | NUR ---
Patient/Caregiver given discharge instructions and they have confirmed that they understand the instructions. Patient ambulatory with steady gait. nad, no personal belongings left in room after dc.
== END 2020-10-19 01:16 | disposition home or self-care (01) ==
LOC: ED 23:01
DX: H66.002 Acute suppurative otitis media without spontaneous rupture of ear drum, left ear (principal); R06.02 Shortness of breath; R07.89 Other chest pain; E11.65 Type 2 diabetes mellitus with hyperglycemia; I10 Essential (primary) hypertension; I25.10 Atherosclerotic heart disease of native coronary artery without angina pectoris; K21.9 Gastro-esophageal reflux disease without esophagitis; E78.5 Hyperlipidemia, unspecified; E66.01 Morbid (severe) obesity due to excess calories; Z86.73 Personal history of transient ischemic attack (TIA), and cerebral infarction without residual deficits; Z90.49 Acquired absence of other specified parts of digestive tract; Z68.38 Body mass index [BMI] 38.0-38.9, adult; Z87.891 Personal history of nicotine dependence
CPT/HCPCS: 36415; 71045; 80048; 82040; 84484; 85025; 93005; 99285

== ENCOUNTER 2020-12-08 20:30 | Observation (INO) | payer MEDICAID ==
[~2020-12-08] VITALS: Ht 167.6 cm; Wt 108.2 kg
[~2020-12-08 20:30] MED LIST changes: +DOXY-246 PO; -DOXY100C15 PO
[2020-12-08 21:17] LABS: BASOPHILS % (AUTO) 1 % (0-1); EOSINOPHILS % (AUTO) 1 % (1-7); LYMPHOCYTES % (AUTO) 30 % (22-44); MEAN CORPUSCULAR HEMOGLOBIN 27.5 pg (27.5-34.5); MEAN CORPUSCULAR HGB CONC 33.7 g/dL (33.2-36.2); MONOCYTES % (AUTO) 10 % (2-9); NEUTROPHILS % (AUTO) 59 % (42-75); PLATELET COUNT 133 x10^3/uL (130-400); RED BLOOD COUNT 5.52 x10^6/uL (4.38-5.82); RED CELL DISTRIBUTION WIDTH 16.9 % (9.4-14.8)
[2020-12-08 21:20] LABS: ACETONE, SERUM Negative (Negative)
[2020-12-08 21:24] LABS: ALBUMIN 3.9 g/dL (3.4-5.0); ANION GAP 10 mmol/L (5-15); CALCIUM 9.1 mg/dL (8.5-10.1); CHLORIDE 100 mmol/L (98-107); CREATININE 1.06 mg/dL (0.7-1.3)
[2020-12-08 21:28] LABS: TROPONIN I < 0.015 ng/mL (0.000-0.045)
[2020-12-09] VITALS (7 sets, daily range): BP systolic 125–157; BP diastolic 62–86
[2020-12-09] MEDS ORDERED: SODIUM CHLORIDE 0.9% 1,000ML IVBOLUS ONE (00:30)
[2020-12-09] MEDS ORDERED: INSULIN REGULAR 100 UNITS/ML, 3ML VIAL IVPush ONE (00:30)
[2020-12-09] MEDS ORDERED: POTASSIUM CHLORIDE 20 MEQ TAB.ER.PRT PO ONE (00:30)
[2020-12-09] MEDS ORDERED: SODIUM CHLORIDE FLUSH 10ML SYR IVF ONE (00:30)
[2020-12-09] MEDS ORDERED: POTASSIUM CHLORIDE 20 MEQ TAB.ER.PRT ONE (00:53)
[2020-12-09] MEDS ORDERED: ONDANSETRON 2MG/ML, 2ML ONE (00:53)
[2020-12-09] MEDS ORDERED: MORPHINE SULFATE 4 MG/ML, 1ML ONE (00:53)
[2020-12-09] MEDS ORDERED: ONDANSETRON 2MG/ML, 2ML IVPush ONE (01:00)
[2020-12-09] MEDS ORDERED: MORPHINE SULFATE 4 MG/ML, 1ML IVPush PRN (01:00)
[2020-12-09] MEDS ORDERED: LABETALOL 5MG/ML, 20ML ONE (01:20)
[2020-12-09] MEDS ORDERED: INSULIN SINGLE DOSE, ER ONE (01:22)
[2020-12-09 01:27] LABS: MICROSCOPIC NOT IND
[2020-12-09] MEDS ORDERED: LABETALOL 5MG/ML, 20ML IVPush ONE (01:30)
--- NOTE | 2020-12-09 01:32 | NUR ---
late entry due to pt care. SIGNED CHARGE NURSE FORM AT REGISTRATION. BRACELET ON PT. PT REPORTS THAT BLOOD SUGAR HAS BEEN OVER 500 MOST OF DAY DESPITE TAKING INSULIN TODAY. PT STATES HE HAS HAD HEADACHE, CP, AND SOB AT 1200 YESTERDAY. PT REPORTS TAKING ASA EARELIER. PT ATTACHED TO CARD/SP02/BP MONITORS. NADN. BREATHING EVEN AND UNLABORED BED IN LOW POSITION. SON AT BEDSIDE. RAILS ENGAGED. CALL LIGHT ON LAP. NO ADDITIONAL NEEDS TO QUESTIONS AT THIS TIME PT STATES HE WANTS TO BE ADMITTED FOR MONITORING. WCTM. PT TOLERATING MEDS WELL. WATCHING TV
--- NOTE | 2020-12-09 01:55 | NUR ---
GAVE REPORT TO GOGO IQBAL.
[2020-12-09] MEDS ORDERED: morphine SULFATE 10 MG/ML, 1ML IVPush PRN (02:30)
[2020-12-09] MEDS ORDERED: NITROGLYCERIN SINGLE TAB 0.4 MG SL PRN (02:30)
[2020-12-09] MEDS ORDERED: ACETAMINOPHEN 325 MG TABLET PO PRN (02:30)
[2020-12-09] MEDS ORDERED: TEMAZEPAM 15 MG CAPSULE PO PRN (02:30)
[2020-12-09] MEDS ORDERED: LACTATED RINGERS 1,000 ML IV SCH (02:30)
[2020-12-09] MEDS ORDERED: GUAIFENESIN/DM 200-20MG, 10ML UDC PO PRN (02:30)
[2020-12-09] MEDS ORDERED: ONDANSETRON 2MG/ML, 2ML IVPush PRN (02:30)
[2020-12-09] MEDS ORDERED: ENALAPRILAT 1.25 MG/ML, 2ML IVPush PRN (02:30)
[2020-12-09] MEDS ORDERED: DOCUSATE 100 MG CAPSULE PO PRN (02:30)
[2020-12-09] MEDS ORDERED: LIDODERM 5% PATCH TD PRN (02:30)
[2020-12-09] MEDS ORDERED: METHOCARBAMOL 500 MG TABLET PO PRN (03:00)
[2020-12-09] MEDS: HYDROcodone/APAP 10/325 MG TABLET PO PRN ×4 (03:11→19:56)
[2020-12-09] MEDS: ENOXAPARIN 40 MG/0.4 ML SQ SCH (03:11)
[2020-12-09] MEDS: METOPROLOL SUCCINATE 25 MG TAB.ER.24H PO SCH (06:07)
[2020-12-09] MEDS: INSULIN REGULAR 100 UNITS/ML, 3ML VIAL SQ-INSULIN SCH ×4 (07:00→19:58)
[2020-12-09] MEDS: ASPIRIN 81 MG TABLET EC PO SCH (08:12)
[2020-12-09] MEDS: OMEPRAZOLE 20 MG CAPSULE.DR PO SCH (08:12)
[2020-12-09] MEDS: metFORMIN XR 500 MG TAB.ER.24H PO SCH ×2 (08:12→20:00)
[2020-12-09] MEDS: POLYETHYLENE GLYCOL 17 GM PACKET PO SCH (08:12)
[2020-12-09] MEDS: ISOSORBIDE MONONITRATE ER 60 MG TABLET PO SCH (08:13)
[2020-12-09] MEDS: AMLODIPINE 10 MG TAB PO SCH (08:13)
[2020-12-09 08:37] LABS: TROPONIN I < 0.015 ng/mL (0.000-0.045)
[2020-12-09] MEDS ORDERED: INSULIN GLARGINE 100 UNITS/ML, PEN SQ-INSULIN SCH (09:00)
[2020-12-09] MEDS: LOSARTAN 100 MG TAB PO SCH ×2 (10:48→10:52)
[2020-12-09 12:01] LABS: TROPONIN I < 0.015 ng/mL (0.000-0.045)
[2020-12-09] MEDS: INSULIN GLARGINE 100 UNITS/ML, PEN SQ-INSULIN SCH (19:59)
[2020-12-09] MEDS ORDERED: ATORVASTATIN 80 MG TABLET PO SCH (21:00)
[2020-12-10 00:55] VITALS: BP 140/65
[2020-12-10] MEDS: ENOXAPARIN 40 MG/0.4 ML SQ SCH (02:54)
[2020-12-10] MEDS: HYDROcodone/APAP 10/325 MG TABLET PO PRN ×2 (02:54→15:35)
[2020-12-10 05:24] LABS: BASOPHILS % (AUTO) 1 % (0-1); EOSINOPHILS % (AUTO) 1 % (1-7); LYMPHOCYTES % (AUTO) 32 % (22-44); MEAN CORPUSCULAR HEMOGLOBIN 27.6 pg (27.5-34.5); MEAN CORPUSCULAR HGB CONC 34.2 g/dL (33.2-36.2); MEAN PLATELET VOLUME 8.5 fL (7.4-10.4); MONOCYTES % (AUTO) 10 % (2-9); NEUTROPHILS % (AUTO) 57 % (42-75); PLATELET COUNT 99 x10^3/uL (130-400); RED BLOOD COUNT 4.72 x10^6/uL (4.38-5.82); RED CELL DISTRIBUTION WIDTH 16.6 % (9.4-14.8)
[2020-12-10 05:29] LABS: CHLORIDE 107 mmol/L (98-107)
[2020-12-10 05:48] LABS: ANION GAP 9 mmol/L (5-15); CALCIUM 9.3 mg/dL (8.5-10.1); CREATININE 0.95 mg/dL (0.7-1.3)
[2020-12-10] MEDS: METOPROLOL SUCCINATE 25 MG TAB.ER.24H PO SCH (06:15)
[2020-12-10] MEDS: INSULIN REGULAR 100 UNITS/ML, 3ML VIAL SQ-INSULIN SCH ×2 (08:20→11:45)
[2020-12-10] MEDS: INSULIN GLARGINE 100 UNITS/ML, PEN SQ-INSULIN SCH (08:20)
[2020-12-10] MEDS: ASPIRIN 81 MG TABLET EC PO SCH (08:21)
[2020-12-10] MEDS: AMLODIPINE 10 MG TAB PO SCH (08:21)
[2020-12-10] MEDS: ISOSORBIDE MONONITRATE ER 60 MG TABLET PO SCH (08:21)
[2020-12-10] MEDS: metFORMIN XR 500 MG TAB.ER.24H PO SCH (08:21)
[2020-12-10] MEDS: OMEPRAZOLE 20 MG CAPSULE.DR PO SCH (08:21)
[2020-12-10] MEDS: POLYETHYLENE GLYCOL 17 GM PACKET PO SCH (08:22)
[2020-12-10 09:30] VITALS: BP 135/81
[2020-12-10] MEDS ORDERED: POTASSIUM CHLORIDE 20 MEQ TAB.ER.PRT PO ONE (11:00)
[2020-12-10 13:47] VITALS: BP 126/61
[2020-12-10] MEDS ORDERED: metFORMIN XR 500 MG TAB.ER.24H PO SCH (17:00)
== END 2020-12-10 16:12 | disposition home or self-care (01) ==
LOC: ED 21:00 → EDIP 12-09 02:29 → INTOOBSV 12-09 02:29 → 5SO 12-09 02:31 → 4WST 12-09 08:56 → DCLOUNGE 12-10 16:05
PROVIDERS: ADMIT Internal Medicine; ATTEND Internal Medicine
DX: I16.0 Hypertensive urgency (principal); R07.89 Other chest pain; I10 Essential (primary) hypertension; E11.65 Type 2 diabetes mellitus with hyperglycemia; I25.10 Atherosclerotic heart disease of native coronary artery without angina pectoris; G89.29 Other chronic pain; M54.9 Dorsalgia, unspecified; E78.5 Hyperlipidemia, unspecified; E87.6 Hypokalemia; N17.9 Acute kidney failure, unspecified; E66.01 Morbid (severe) obesity due to excess calories; K21.9 Gastro-esophageal reflux disease without esophagitis; Z86.73 Personal history of transient ischemic attack (TIA), and cerebral infarction without residual deficits; Z87.11 Personal history of peptic ulcer disease; Z87.891 Personal history of nicotine dependence; Z79.4 Long term (current) use of insulin; Z79.899 Other long term (current) drug therapy
CPT/HCPCS: 36415; 71045; 80048; 81003; 82010; 82040; 82800; 82962; 83036; 83735; 83880; 84100; 84443; 84484; 85025; 93005; 96361; 96372; 96374; 96375; 99285; G0378; J1650; J1815; J2270; J2405; J7030; J7120

== ENCOUNTER 2020-12-27 22:14 | Observation (INO) | payer MEDICAID ==
[~2020-12-27] VITALS: Ht 167.6 cm; Wt 107.6 kg
--- NOTE | 2020-12-27 22:15 | NUR ---
PT BIBA FOR CHEST PAIN THAT STARTED TODAY AROUND 2PM, PT STATED TO EMS THAT IT GETS WORSE ON INSIPRATION, PT HAS NOT SEEN HIS TIMBER BUYER IN 2 YEARS, PT WENT TO [facility] YESTERDAY FOR THE SAME COMPLAINT AND ALL FINDINGS WERE NEGATIVE ACCORDING TO EMS AND PT WAS DISCHARGED HOME, PT ARRIVED WITH A 2OG IN THE RIGHT FA, PT STILL COMPLAINING OF 8/10 CHEST PAIN RADIATING TO HIS LEFT ARM, PT HOOKED UP TO BLOOD PRESSURE CUFF, CAMERA ASSEMBLER, AND PULSE OX, EKG COMPLETED UPON ARRIVAL
[2020-12-27] MEDS ORDERED: SODIUM CHLORIDE FLUSH 10ML SYR IVF ONE (22:30)
[2020-12-27 22:46] LABS: BASOPHILS % (AUTO) 1 % (0-1); EOSINOPHILS % (AUTO) 0 % (1-7); LYMPHOCYTES % (AUTO) 25 % (22-44); MEAN CORPUSCULAR HEMOGLOBIN 27.5 pg (27.5-34.5); MEAN CORPUSCULAR HGB CONC 34.4 g/dL (33.2-36.2); MEAN PLATELET VOLUME 9.2 fL (7.4-10.4); MONOCYTES % (AUTO) 9 % (2-9); NEUTROPHILS % (AUTO) 65 % (42-75); PLATELET COUNT 135 x10^3/uL (130-400); RED BLOOD COUNT 5.19 x10^6/uL (4.38-5.82); RED CELL DISTRIBUTION WIDTH 16.4 % (9.4-14.8)
[2020-12-27 22:51] LABS: ALANINE AMINOTRANSFERASE 71 U/L (12-78); ALBUMIN 3.7 g/dL (3.4-5.0); ANION GAP 6 mmol/L (5-15); CALCIUM 8.6 mg/dL (8.5-10.1); CHLORIDE 99 mmol/L (98-107); CREATININE 1.16 mg/dL (0.7-1.3)
[2020-12-27 22:55] LABS: ALKALINE PHOSPHATASE 114 U/L (45-117); BILIRUBIN,TOTAL 0.4 mg/dL (0.2-1.0); TOTAL PROTEIN 7.4 g/dL (6.4-8.2); TROPONIN I < 0.015 ng/mL (0.000-0.045)
[2020-12-28] MEDS ORDERED: ONDANSETRON 2MG/ML, 2ML IVPush ONE
[2020-12-28] MEDS ORDERED: ONDANSETRON 2MG/ML, 2ML ONE (00:01)
[2020-12-28] MEDS ORDERED: MORPHINE SULFATE 4 MG/ML, 1ML ONE ×2 (00:02→02:44)
[2020-12-28] MEDS: MORPHINE SULFATE 4 MG/ML, 1ML IVPush PRN ×2 (00:06→02:45)
--- NOTE | 2020-12-28 02:31 | NUR ---
PT LAYING IN BED, A/OX4, ALL NEEDS IN REACH, CALL LIGHT IN REACH, VSS, PT STATES HE IS STILL IN PAIN, THIS RN TO CHECK WITH MD FOR MORE PAIN MEDS
[2020-12-28] MEDS ORDERED: ONDANSETRON 2MG/ML, 2ML IVPush PRN (03:00)
[2020-12-28] MEDS ORDERED: POLYETHYLENE GLYCOL 17 GM PACKET PO PRN (03:00)
[2020-12-28] MEDS ORDERED: LABETALOL 5MG/ML, 20ML IVPush PRN (03:00)
[2020-12-28] MEDS ORDERED: ACETAMINOPHEN 325 MG TABLET PO PRN (03:00)
[2020-12-28] MEDS ORDERED: NITROGLYCERIN 0.4 MG/SPRAY SL PRN (03:00)
[2020-12-28] MEDS ORDERED: NITROGLYCERIN 0.4 MG BOTTLE (25 TABS) SL PRN (03:00)
[2020-12-28] MEDS ORDERED: morphine SULFATE 10 MG/ML, 1ML IVPush PRN (03:00)
[2020-12-28] MEDS ORDERED: MELATONIN 5 MG TABLET PO PRN (03:00)
[2020-12-28 03:08] LABS: BASOPHILS % (AUTO) 1 % (0-1); EOSINOPHILS % (AUTO) 1 % (1-7); LYMPHOCYTES % (AUTO) 33 % (22-44); MEAN CORPUSCULAR HEMOGLOBIN 27.3 pg (27.5-34.5); MEAN CORPUSCULAR HGB CONC 34.1 g/dL (33.2-36.2); MEAN PLATELET VOLUME 8.8 fL (7.4-10.4); MONOCYTES % (AUTO) 9 % (2-9); NEUTROPHILS % (AUTO) 56 % (42-75); PLATELET COUNT 126 x10^3/uL (130-400); RED BLOOD COUNT 5.06 x10^6/uL (4.38-5.82); RED CELL DISTRIBUTION WIDTH 16.1 % (9.4-14.8)
[2020-12-28 03:18] LABS: ANION GAP 4 mmol/L (5-15); CHLORIDE 101 mmol/L (98-107); CREATININE 0.94 mg/dL (0.7-1.3)
[2020-12-28 03:23] LABS: TROPONIN I < 0.015 ng/mL (0.000-0.045)
[2020-12-28 04:26] VITALS: BP 162/95
[2020-12-28] MEDS ORDERED: HYDROcodone/APAP 10/325 MG TABLET PO ONE (04:30)
[2020-12-28] MEDS: ENOXAPARIN 30 MG/0.3 ML SQ SCH ×2 (04:35→16:00)
[2020-12-28 04:37] VITALS: BP 162/96
[2020-12-28] MEDS ORDERED: HYDROcodone/APAP 10/325 MG TABLET PO PRN (07:30)
[2020-12-28 07:33] LABS: TROPONIN I < 0.015 ng/mL (0.000-0.045)
[2020-12-28 07:41] VITALS: BP 140/80
[2020-12-28] MEDS ORDERED: POTASSIUM CHLORIDE 40 MEQ in SODIUM CHLORIDE 0.9% 500 ML IV ONE (08:30)
[2020-12-28] MEDS: AMLODIPINE 10 MG TAB PO SCH (08:30)
[2020-12-28] MEDS ORDERED: POTASSIUM CHLORIDE 20 MEQ TAB.ER.PRT PO ONE (08:30)
[2020-12-28] MEDS: ISOSORBIDE MONONITRATE ER 60 MG TABLET PO SCH (08:30)
[2020-12-28] MEDS: OMEPRAZOLE 20 MG CAPSULE.DR PO SCH (08:31)
[2020-12-28] MEDS: LOSARTAN 100 MG TAB PO SCH (08:31)
[2020-12-28] MEDS: FAMOTIDINE 20 MG/2 ML IVPush SCH ×2 (08:31→21:21)
[2020-12-28] MEDS: ASPIRIN 81 MG TABLET EC PO SCH (08:32)
[2020-12-28] MEDS: HYDROCHLOROTHIAZIDE 12.5 MG CAPSULE PO SCH (08:32)
[2020-12-28] MEDS: POLYETHYLENE GLYCOL 17 GM PACKET PO SCH (08:52)
[2020-12-28] MEDS ORDERED: REGADENOSON 0.4 MG/5 ML SYRINGE ONE (08:56)
[2020-12-28] MEDS: INSULIN GLARGINE 100 UNITS/ML, PEN SQ-INSULIN SCH ×2 (10:38→21:20)
[2020-12-28] MEDS: HYDROcodone/APAP 10/325 MG TABLET PO PRN ×3 (13:02→21:22)
[2020-12-28] MEDS ORDERED: OMNIPAQUE 350 MG/ML, 75ML BOTTLE ONE (13:48)
[2020-12-28 14:35] VITALS: BP_SYST 133; BP_SYST 140; BP_DIAS 73; BP_DIAS 80
[2020-12-28] MEDS: AMPICILLIN/SULBACTAM 3 GM in SODIUM CHLORIDE 0.9% 100 ML IV SCH (17:35)
[2020-12-28 20:31] VITALS: BP 147/74
[2020-12-28] MEDS ORDERED: ATORVASTATIN 80 MG TABLET PO SCH (21:00)
[2020-12-28] MEDS ORDERED: ATOR40TA78 PO (21:04)
[2020-12-28] MEDS: INSULIN LISPRO 100 UNITS/ML, PEN SQ-INSULIN SCH (21:21)
[2020-12-29 00:13] VITALS: BP 144/73
[2020-12-29] MEDS: AMPICILLIN/SULBACTAM 3 GM in SODIUM CHLORIDE 0.9% 100 ML IV SCH ×2 (01:43→09:30)
[2020-12-29] MEDS: HYDROcodone/APAP 10/325 MG TABLET PO PRN ×4 (01:44→16:18)
[2020-12-29] MEDS: ENOXAPARIN 30 MG/0.3 ML SQ SCH ×2 (04:24→16:00)
[2020-12-29 05:31] LABS: ANION GAP 3 mmol/L (5-15); CALCIUM 8.5 mg/dL (8.5-10.1); CHLORIDE 104 mmol/L (98-107)
[2020-12-29 05:34] LABS: CREATININE 0.94 mg/dL (0.7-1.3)
[2020-12-29 07:27] VITALS: BP 157/77
[2020-12-29] MEDS: ISOSORBIDE MONONITRATE ER 60 MG TABLET PO SCH (07:47)
[2020-12-29] MEDS: HYDROCHLOROTHIAZIDE 12.5 MG CAPSULE PO SCH (07:47)
[2020-12-29] MEDS: ASPIRIN 81 MG TABLET EC PO SCH (07:48)
[2020-12-29] MEDS: AMLODIPINE 10 MG TAB PO SCH (07:48)
[2020-12-29] MEDS: OMEPRAZOLE 20 MG CAPSULE.DR PO SCH (07:48)
[2020-12-29] MEDS: FAMOTIDINE 20 MG/2 ML IVPush SCH (07:48)
[2020-12-29] MEDS: LOSARTAN 100 MG TAB PO SCH (07:48)
[2020-12-29] MEDS: INSULIN LISPRO 100 UNITS/ML, PEN SQ-INSULIN SCH ×3 (07:51→16:36)
[2020-12-29] MEDS: INSULIN GLARGINE 100 UNITS/ML, PEN SQ-INSULIN SCH (07:53)
[2020-12-29] MEDS: POLYETHYLENE GLYCOL 17 GM PACKET PO SCH (07:58)
[2020-12-29] MEDS ORDERED: AMOX1TAB64 PO (11:53)
[2020-12-29 13:27] VITALS: BP 142/75
[2020-12-29] MEDS ORDERED: HYDR1TAB53 PO (17:11)
== END 2020-12-29 17:55 | disposition home or self-care (01) ==
LOC: ED 22:15 → EDIP 12-28 02:05 → INTOOBSV 12-28 02:05 → 5SO 12-28 03:43
PROVIDERS: ADMIT Internal Medicine; ATTEND Family Medicine
DX: I16.0 Hypertensive urgency (principal); R07.89 Other chest pain; I25.110 Atherosclerotic heart disease of native coronary artery with unstable angina pectoris; E11.65 Type 2 diabetes mellitus with hyperglycemia; I10 Essential (primary) hypertension; M79.7 Fibromyalgia; H70.12 Chronic mastoiditis, left ear; E78.5 Hyperlipidemia, unspecified; G89.29 Other chronic pain; Z79.82 Long term (current) use of aspirin; Z79.899 Other long term (current) drug therapy; Z79.4 Long term (current) use of insulin; Z87.11 Personal history of peptic ulcer disease
CPT/HCPCS: 36415; 70460; 71045; 71275; 78452; 80048; 80053; 82962; 83735; 84484; 85025; 87040; 93005; 93017; 96361; 96365; 96366; 96372; 96375; 96376; 99285; A9502; G0378; J0295; J1650; J1815; J2270; J2405; J2785; J3480; J7040; Q9967; 96374

== ENCOUNTER 2021-01-06 15:14 | Emergency (ER) | payer MEDICAID ==
[~2021-01-06] VITALS: Ht 167.6 cm; Wt 108.0 kg
[~2021-01-06 15:14] MED LIST changes: +HYDR1TAB53 PO
--- NOTE | 2021-01-06 15:45 | NUR ---
FIRST CONTACT: "MY BLOOD SUGAR IS TOO HIGH AND MY BLOOD PRESSURE" STARTED TODAY BLOOD SUGAR 400'S. ABBEY MONTGOMERY TO BEDSIDE FOR EVALUATION. PT POSTIONED TO COMFORT IN BED. ATTACHED TO MONITORS. VSS. PAGAN
[2021-01-06] MEDS ORDERED: MORPHINE SULFATE 4 MG/ML, 1ML IVPush PRN (16:00)
[2021-01-06] MEDS ORDERED: MORPHINE SULFATE 4 MG/ML, 1ML ONE (16:04)
[2021-01-06] MEDS ORDERED: ONDANSETRON 2MG/ML, 2ML ONE (16:04)
--- NOTE | 2021-01-06 16:11 | NUR ---
PT MEDICATED PER EMAR. VSS. KENROYN.
[2021-01-06 16:21] LABS: BASOPHILS % (AUTO) 0 % (0-1); EOSINOPHILS % (AUTO) 1 % (1-7); LYMPHOCYTES % (AUTO) 21 % (22-44); MEAN CORPUSCULAR HEMOGLOBIN 27.1 pg (27.5-34.5); MEAN CORPUSCULAR HGB CONC 33.6 g/dL (33.2-36.2); MEAN PLATELET VOLUME 9.8 fL (7.4-10.4); MONOCYTES % (AUTO) 8 % (2-9); NEUTROPHILS % (AUTO) 70 % (42-75); PLATELET COUNT 164 x10^3/uL (130-400); RED BLOOD COUNT 5.56 x10^6/uL (4.38-5.82)
[2021-01-06 16:32] LABS: ALANINE AMINOTRANSFERASE 77 U/L (12-78); ALBUMIN 4.1 g/dL (3.4-5.0); ANION GAP 9 mmol/L (5-15); CALCIUM 9.5 mg/dL (8.5-10.1); CHLORIDE 101 mmol/L (98-107); CREATININE 1.34 mg/dL (0.7-1.3)
[2021-01-06 16:34] LABS: ALKALINE PHOSPHATASE 121 U/L (45-117); BILIRUBIN,TOTAL 0.4 mg/dL (0.2-1.0); TOTAL PROTEIN 8.1 g/dL (6.4-8.2)
--- NOTE | 2021-01-06 16:46 | NUR ---
PT RESTING IN BED. VSDia. LATASHA.
[2021-01-06] MEDS ORDERED: ONDANSETRON 2MG/ML, 2ML IVPush ONE (17:00)
[2021-01-06] MEDS ORDERED: SODIUM CHLORIDE 0.9% 1,000ML IVBOLUS ONE (17:00)
[2021-01-06 17:05] LABS: MICROSCOPIC NOT IND
[2021-01-06 17:48] LABS: ACETONE, SERUM Small (20mg/dL) (Negative)
[2021-01-06] MEDS ORDERED: HYDROcodone/APAP 5/325 TABLET PO ONE (18:00)
[2021-01-06] MEDS ORDERED: HYDROcodone/APAP 5/325 TABLET ONE (18:14)
[2021-01-06 18:15] VITALS: BP 149/74
--- NOTE | 2021-01-06 18:28 | NUR ---
Patient given discharge instructions and they have confirmed that they understand the instructions. Patient ambulatory with steady gait. NAD, all questions answered appropriately, denies additional needs at this time. No personal belongings left in room after discharge.
== END 2021-01-06 18:29 | disposition home or self-care (01) ==
LOC: ED 16:09
DX: M54.9 Dorsalgia, unspecified (principal); G89.29 Other chronic pain; E11.65 Type 2 diabetes mellitus with hyperglycemia; R11.0 Nausea; R42 Dizziness and giddiness; R00.0 Tachycardia, unspecified; K21.9 Gastro-esophageal reflux disease without esophagitis; I11.9 Hypertensive heart disease without heart failure
CPT/HCPCS: 36415; 80053; 81003; 82010; 82800; 82962; 83735; 85025; 93005; 96374; 96375; 99285; J2270; J2405; J7030

== ENCOUNTER 2021-02-09 23:45 | Emergency (ER) | payer MEDICAID ==
[~2021-02-09] VITALS: Ht 170.2 cm; Wt 109.0 kg
[~2021-02-09 23:45] MED LIST changes: -LISI2.5T PO; +LISI2.5T12 PO; +POTA-143 PO; -POTA20TA6 PO
--- NOTE | 2021-02-10 00:01 | NUR ---
BGL 353. ATTEMPTED TO PLACE PT IN C COLLAR DUE TO C/O NECK PAIN. UNIVERSAL COLLAR AND SHORT COLLAR TOO SMALL FOR PTS NECK.
--- NOTE | 2021-02-10 00:09 | NUR ---
pt walking into house when pt fainted and falling back and landed on his lower back. pt hit his head and lost concsoiusness for a few seconds. pt a&ox4, brwathing even and unlabored, perrla. speaks clearly. no bump or bruise noted on pt head but pt states neck pain. pt attached to card/sp02/bp monitors, elevated bp, nadn at moment. bed in low, rails engaged, call light on lap. wctm
--- NOTE | 2021-02-10 00:14 | NUR ---
pt fell because he became dizzy
[2021-02-10] MEDS ORDERED: HYDROcodone/APAP 5/325 TABLET ONE (00:16)
[2021-02-10 00:26] LABS: BASOPHILS % (AUTO) 1 % (0-1); EOSINOPHILS % (AUTO) 0 % (1-7); LYMPHOCYTES % (AUTO) 33 % (22-44); MEAN CORPUSCULAR HEMOGLOBIN 25.9 pg (27.5-34.5); MEAN CORPUSCULAR HGB CONC 32.7 g/dL (33.2-36.2); MEAN PLATELET VOLUME 8.6 fL (7.4-10.4); MONOCYTES % (AUTO) 11 % (2-9); NEUTROPHILS % (AUTO) 56 % (42-75); PLATELET COUNT 150 x10^3/uL (130-400); RED BLOOD COUNT 5.51 x10^6/uL (4.38-5.82); RED CELL DISTRIBUTION WIDTH 15.7 % (9.4-14.8)
[2021-02-10] MEDS ORDERED: HYDROcodone/APAP 5/325 TABLET PO ONE (00:30)
[2021-02-10 00:33] LABS: ALBUMIN 3.9 g/dL (3.4-5.0); ANION GAP 10 mmol/L (5-15); CALCIUM 9.7 mg/dL (8.5-10.1); CHLORIDE 100 mmol/L (98-107); CREATININE 1.13 mg/dL (0.7-1.3)
--- NOTE | 2021-02-10 00:46 | NUR ---
Patient is resting comfortably in bed. Bed in lowest, rails engaged, call light on lap. Vital Signs within normal limits. WCTM.
[2021-02-10 01:37] VITALS: BP 145/69
--- NOTE | 2021-02-10 01:38 | NUR ---
Patient/Caregiver given discharge instructions and they have confirmed that they understand the instructions. Patient ambulatory with steady gait. NAD, all questions answered appropriately, denies additional needs at this time. No personal belongings left in room after discharge.
== END 2021-02-10 01:53 | disposition home or self-care (01) ==
LOC: ED 23:59
DX: S16.1XXA Strain of muscle, fascia and tendon at neck level, initial encounter (principal); S09.90XA Unspecified injury of head, initial encounter; M47.812 Spondylosis without myelopathy or radiculopathy, cervical region; R55 Syncope and collapse; M54.5 Low back pain; I10 Essential (primary) hypertension; E11.9 Type 2 diabetes mellitus without complications; G89.29 Other chronic pain; K21.9 Gastro-esophageal reflux disease without esophagitis; W10.9XXA Fall (on) (from) unspecified stairs and steps, initial encounter; Y93.89 Activity, other specified; Y92.89 Other specified places as the place of occurrence of the external cause; Y99.8 Other external cause status
CPT/HCPCS: 36415; 70450; 71045; 72125; 72131; 80048; 82040; 82962; 85025; 93005; 99285

== ENCOUNTER 2021-02-17 15:28 | Inpatient (IN) | payer MEDICAID ==
[~2021-02-17] VITALS: Ht 167.6 cm; Wt 109.6 kg
--- NOTE | 2021-02-17 16:16 | NUR ---
1608 code neuro paged [phone] dr malagon paged for dr laurent [phone] dr malagon returned call to dr laurent
[2021-02-17 16:22] LABS: BASOPHILS % (AUTO) 1 % (0-1); EOSINOPHILS % (AUTO) 0 % (1-7); LYMPHOCYTES % (AUTO) 24 % (22-44); MEAN CORPUSCULAR HEMOGLOBIN 26.6 pg (27.5-34.5); MEAN CORPUSCULAR HGB CONC 33.7 g/dL (33.2-36.2); MEAN PLATELET VOLUME 8.5 fL (7.4-10.4); MONOCYTES % (AUTO) 7 % (2-9); NEUTROPHILS % (AUTO) 68 % (42-75); PLATELET COUNT 149 x10^3/uL (130-400); RED BLOOD COUNT 5.62 x10^6/uL (4.38-5.82)
--- NOTE | 2021-02-17 16:34 | NUR ---
PT brougth back from triage as code neuro. Labs, EKG, Ct scan completed. 1430 reported BRICENO, with pain/numbness down left side of body. Upon evaluation pt cletching chest. A&O.
[2021-02-17 16:36] LABS: INTERNATIONAL NORMALIZED RATIO 0.94 (0.93-1.1); PROTHROMBIN TIME 10.1 Seconds (9.6-11.5)
[2021-02-17] MEDS ORDERED: OMNIPAQUE 350 MG/ML, 100ML BOTTLE ONE (16:39)
[2021-02-17] MEDS ORDERED: MORPHINE SULFATE 4 MG/ML, 1ML ONE ×2 (16:45→21:24)
[2021-02-17] MEDS: MORPHINE SULFATE 4 MG/ML, 1ML IVPush PRN ×2 (16:48→21:25)
--- NOTE | 2021-02-17 17:01 | NUR ---
PT TRANSFERRED TO ROOM 08. REPORT FROM TASK RN, EPHRAIM. PT AWAKE, ALERT; A&OX4, SPEECH CLEAR, SLIGHT L MOUTH DROOP, DECREASED LLE STRENGTH. PT STATES THIS IS BASELINE FOLLOWING A STROKE 'A FEW MONTHS AGO'. PT C/O L CHEST PAIN, WORSENING WITH LUE MOVEMENT, AND BRICENO X TODAY. BRICENO IMPROVED WITH RX. BP/SPO2/ECG MONITORING IN PLACE. NSR ON MONITOR. Addendum: 02/17/21 at 1706 by BENTON TOOK 81MG ASA THIS AM TEAR DOWN MATCHER
[2021-02-17 17:08] LABS: TROPONIN I < 0.015 ng/mL (0.000-0.045)
[2021-02-17] MEDS: VALPROATE SODIUM 500 MG in SODIUM CHLORIDE 0.9% 100 ML IV SCH (17:19)
--- NOTE | 2021-02-17 17:23 | NUR ---
ERP AT BEDSIDE TO DISCUSS POC. PT MEDICATED PER EMAR.
--- NOTE | 2021-02-17 17:53 | NUR ---
PT RESTING CALMLY IN GURNEY W EYES CLOSED, EVEN/REGULAR RESPIRATIONS NOTED. VSS. AWAITING ADMIT
--- NOTE | 2021-02-17 18:07 | NUR ---
PT REPORTS SLIGHTLY IMPROVED BRICENO WITH RX. VSS.
--- NOTE | 2021-02-17 19:12 | NUR ---
GROSS NEURO INTACT. REPORTS SLIGHT IMPROVEMENT IN BRICENO/VISION/CHEST PAIN. PT UPDATED TO POC (ADMIT) AND DEMONSTRATES UNDERSTANDING.
[2021-02-17] MEDS ORDERED: POLYETHYLENE GLYCOL 17 GM PACKET PO PRN (19:30)
[2021-02-17] MEDS ORDERED: ACETAMINOPHEN 325 MG TABLET PO PRN (19:30)
[2021-02-17] MEDS ORDERED: ONDANSETRON ODT 4 MG PO PRN (19:30)
[2021-02-17] MEDS ORDERED: BISACODYL 10 MG SUPP PR PRN (19:30)
[2021-02-17] MEDS ORDERED: NITROGLYCERIN SINGLE TAB 0.4 MG SL PRN (19:30)
[2021-02-17] MEDS ORDERED: metFORMIN 500 MG TABLET PO SCH (21:00)
[2021-02-17] MEDS ORDERED: INSULIN LISPRO 100 UNITS/ML, PEN SQ-INSULIN SCH (21:00)
--- NOTE | 2021-02-17 21:25 | NUR ---
PT MEDICATED PER EMAR FOR BACK/LEFT SIDED CHEST PAIN, 01/27. NO CHANGE FROM ARRIVAL. DENIES N/V/SOB.
--- NOTE | 2021-02-17 22:17 | NUR ---
REPORT CALLED TO RASHEED ASHFORD ON FLOOR. PT PREPARED FOR TRANSPORT.
[2021-02-17 22:20] LABS: TROPONIN I < 0.015 ng/mL (0.000-0.045)
--- NOTE | 2021-02-17 23:09 | NUR ---
PT REPORTS SIGNIFICANT IMPROVEMENT IN PAIN WITH SECOND DOSE MORPHINE.
[2021-02-17 23:50] VITALS: BP 162/89
[2021-02-18] MEDS: HYDROcodone/APAP 10/325 MG TABLET PO PRN ×6 (00:13→22:05)
[2021-02-18] MEDS: ATORVASTATIN 40 MG TABLET PO SCH ×2 (00:13→20:42)
[2021-02-18] MEDS: INSULIN LISPRO 100 UNITS/ML, PEN SQ-INSULIN SCH ×5 (00:18→20:50)
[2021-02-18] MEDS: INSULIN GLARGINE 100 UNITS/ML, PEN SQ-INSULIN SCH ×3 (00:19→20:51)
[2021-02-18 01:48] VITALS: BP 154/88
[2021-02-18 04:57] LABS: TROPONIN I < 0.015 ng/mL (0.000-0.045)
[2021-02-18] MEDS: METOPROLOL SUCCINATE 25 MG TAB.ER.24H PO SCH (05:38)
[2021-02-18] MEDS: OMEPRAZOLE 20 MG CAPSULE.DR PO SCH (05:38)
[2021-02-18] MEDS: VALPROATE SODIUM 500 MG in SODIUM CHLORIDE 0.9% 100 ML IV SCH ×2 (05:49→16:38)
[2021-02-18 07:30] VITALS: BP 160/88
[2021-02-18] MEDS: AMLODIPINE 10 MG TAB PO SCH (08:25)
[2021-02-18] MEDS: ISOSORBIDE MONONITRATE ER 60 MG TABLET PO SCH (08:25)
[2021-02-18] MEDS: LOSARTAN 100 MG TAB PO SCH (08:25)
[2021-02-18] MEDS: metFORMIN 500 MG TABLET PO SCH ×2 (08:25→20:46)
[2021-02-18] MEDS: ASPIRIN 81 MG TABLET EC PO SCH (08:25)
[2021-02-18] MEDS: HYDROCHLOROTHIAZIDE 12.5 MG CAPSULE PO SCH (08:26)
[2021-02-18] MEDS: SENNA/DOCUSATE TABLET PO SCH (08:27)
[2021-02-18] MEDS: POLYETHYLENE GLYCOL 17 GM PACKET PO SCH (08:27)
[2021-02-18 13:05] VITALS: BP 157/75
[2021-02-18] MEDS ORDERED: IBUPROFEN 200 MG TABLET PO PRN (14:30)
[2021-02-18 20:20] VITALS: BP 146/75
[2021-02-19 01:14] VITALS: BP 142/74
[2021-02-19] MEDS: HYDROcodone/APAP 10/325 MG TABLET PO PRN ×5 (02:03→21:01)
[2021-02-19] MEDS: OMEPRAZOLE 20 MG CAPSULE.DR PO SCH (05:40)
[2021-02-19] MEDS: VALPROATE SODIUM 500 MG in SODIUM CHLORIDE 0.9% 100 ML IV SCH ×2 (05:40→17:01)
[2021-02-19 05:42] VITALS: BP 145/80
[2021-02-19] MEDS: METOPROLOL SUCCINATE 25 MG TAB.ER.24H PO SCH ×2 (05:45→09:00)
[2021-02-19] MEDS: INSULIN LISPRO 100 UNITS/ML, PEN SQ-INSULIN SCH ×4 (07:00→21:00)
[2021-02-19 08:18] VITALS: BP 194/93
[2021-02-19] MEDS: metFORMIN 500 MG TABLET PO SCH ×2 (08:19→21:20)
[2021-02-19] MEDS: ASPIRIN 81 MG TABLET EC PO SCH (08:19)
[2021-02-19] MEDS: HYDROCHLOROTHIAZIDE 12.5 MG CAPSULE PO SCH (08:20)
[2021-02-19] MEDS: SENNA/DOCUSATE TABLET PO SCH (08:21)
[2021-02-19] MEDS: ISOSORBIDE MONONITRATE ER 60 MG TABLET PO SCH (08:21)
[2021-02-19] MEDS: POLYETHYLENE GLYCOL 17 GM PACKET PO SCH (08:21)
[2021-02-19] MEDS: AMLODIPINE 10 MG TAB PO SCH (08:21)
[2021-02-19] MEDS: LOSARTAN 100 MG TAB PO SCH (08:21)
[2021-02-19] MEDS: INSULIN GLARGINE 100 UNITS/ML, PEN SQ-INSULIN SCH ×2 (09:45→21:00)
[2021-02-19 12:51] VITALS: BP 180/79
[2021-02-19] MEDS: hydrALAzine 20 MG/ML, 1ML IVPush PRN (12:51)
[2021-02-19 17:03] VITALS: BP 140/86
[2021-02-19 20:57] VITALS: BP 177/72
[2021-02-19] MEDS ORDERED: INSULIN GLARGINE 100 UNITS/ML, PEN SQ-INSULIN SCH (21:00)
[2021-02-19] MEDS: ATORVASTATIN 40 MG TABLET PO SCH (21:01)
[2021-02-20] VITALS (8 sets, daily range): BP systolic 158–181; BP diastolic 68–86
[2021-02-20] MEDS: hydrALAzine 20 MG/ML, 1ML IVPush PRN (01:07)
[2021-02-20] MEDS: HYDROcodone/APAP 10/325 MG TABLET PO PRN ×5 (01:07→20:18)
[2021-02-20] MEDS: VALPROATE SODIUM 500 MG in SODIUM CHLORIDE 0.9% 100 ML IV SCH (05:51)
[2021-02-20] MEDS: METOPROLOL SUCCINATE 25 MG TAB.ER.24H PO SCH (05:54)
[2021-02-20] MEDS: OMEPRAZOLE 20 MG CAPSULE.DR PO SCH (05:54)
[2021-02-20] MEDS: INSULIN LISPRO 100 UNITS/ML, PEN SQ-INSULIN SCH ×4 (07:00→21:21)
[2021-02-20] MEDS: ISOSORBIDE MONONITRATE ER 60 MG TABLET PO SCH (08:08)
[2021-02-20] MEDS: HYDROCHLOROTHIAZIDE 12.5 MG CAPSULE PO SCH (08:08)
[2021-02-20] MEDS: SENNA/DOCUSATE TABLET PO SCH (08:08)
[2021-02-20] MEDS: LOSARTAN 100 MG TAB PO SCH (08:08)
[2021-02-20] MEDS: metFORMIN 500 MG TABLET PO SCH ×2 (08:08→17:15)
[2021-02-20] MEDS: ASPIRIN 81 MG TABLET EC PO SCH (08:09)
[2021-02-20] MEDS: POLYETHYLENE GLYCOL 17 GM PACKET PO SCH (08:09)
[2021-02-20] MEDS: AMLODIPINE 10 MG TAB PO SCH (08:09)
[2021-02-20] MEDS: INSULIN GLARGINE 100 UNITS/ML, PEN SQ-INSULIN SCH ×2 (08:15→21:19)
[2021-02-20] MEDS ORDERED: SUMATRIPTAN 6MG/0.5ML SQ PRN (16:30)
[2021-02-20] MEDS ORDERED: DIPHENHYDRAMINE 50 MG/ML, 1ML IVPush ONE (16:30)
[2021-02-20] MEDS ORDERED: PROCHLORPERAZINE 5 MG/ML, 2ML IVPush ONE (16:30)
[2021-02-20] MEDS: methylPREDNISolone SOD SUCC 125 MG/2 ML IVPush SCH (17:14)
[2021-02-20] MEDS: ATORVASTATIN 40 MG TABLET PO SCH (21:17)
[2021-02-21 02:24] VITALS: BP 136/80
[2021-02-21] MEDS: OMEPRAZOLE 20 MG CAPSULE.DR PO SCH (05:38)
[2021-02-21] MEDS: METOPROLOL SUCCINATE 25 MG TAB.ER.24H PO SCH (05:38)
[2021-02-21] MEDS: methylPREDNISolone SOD SUCC 125 MG/2 ML IVPush SCH (05:38)
[2021-02-21] MEDS: HYDROcodone/APAP 10/325 MG TABLET PO PRN ×2 (05:39→10:20)
[2021-02-21 07:30] VITALS: BP 155/88
[2021-02-21] MEDS: SENNA/DOCUSATE TABLET PO SCH (09:05)
[2021-02-21] MEDS: INSULIN LISPRO 100 UNITS/ML, PEN SQ-INSULIN SCH ×2 (09:05→11:32)
[2021-02-21] MEDS: INSULIN GLARGINE 100 UNITS/ML, PEN SQ-INSULIN SCH (09:05)
[2021-02-21] MEDS: ASPIRIN 81 MG TABLET EC PO SCH (09:06)
[2021-02-21] MEDS: HYDROCHLOROTHIAZIDE 12.5 MG CAPSULE PO SCH (09:06)
[2021-02-21] MEDS: metFORMIN 500 MG TABLET PO SCH (09:06)
[2021-02-21] MEDS: POLYETHYLENE GLYCOL 17 GM PACKET PO SCH (09:07)
[2021-02-21] MEDS: AMLODIPINE 10 MG TAB PO SCH (09:07)
[2021-02-21] MEDS: LOSARTAN 100 MG TAB PO SCH (09:07)
[2021-02-21] MEDS: ISOSORBIDE MONONITRATE ER 60 MG TABLET PO SCH (09:07)
[2021-02-21] MEDS ORDERED: SUMATRIPTAN 6MG/0.5ML SQ ONE (10:30)
[2021-02-21] MEDS ORDERED: PROCHLORPERAZINE 5 MG/ML, 2ML IVPush ONE (10:30)
[2021-02-21] MEDS ORDERED: DIPHENHYDRAMINE 50 MG/ML, 1ML IVPush ONE (10:30)
[2021-02-21] MEDS ORDERED: SUMA20SP NAS (12:16)
[2021-02-21] MEDS ORDERED: METO25TA91 PO (12:16)
[2021-02-21] MEDS ORDERED: HYDR-3343 PO (12:16)
[2021-02-21] MEDS ORDERED: ACET325T26 PO (12:16)
[2021-02-21] MEDS ORDERED: IBUP-1902 PO (12:16)
[2021-02-21] MEDS ORDERED: AMIT25TA PO (12:16)
[2021-02-21 14:16] VITALS: BP 131/69
[2021-02-21] MEDS ORDERED: AMITRIPTYLINE 25 MG TABLET PO SCH (21:00)
== END 2021-02-21 16:41 | disposition home or self-care (01) | DRG 54 ==
LOC: ED 16:39 → EDIP 17:11 → 5SO 23:16 → UNDODISIN 02-21 10:18
PROVIDERS: ADMIT Family Medicine; ATTEND Hospitalist
DX: G43.109 Migraine with aura, not intractable, without status migrainosus (principal); I69.354 Hemiplegia and hemiparesis following cerebral infarction affecting left non-dominant side; E11.9 Type 2 diabetes mellitus without complications; E78.5 Hyperlipidemia, unspecified; G44.40 Drug-induced headache, not elsewhere classified, not intractable; G89.29 Other chronic pain; I10 Essential (primary) hypertension; I25.10 Atherosclerotic heart disease of native coronary artery without angina pectoris; H81.10 Benign paroxysmal vertigo, unspecified ear; K21.9 Gastro-esophageal reflux disease without esophagitis; Z79.4 Long term (current) use of insulin; Z79.891 Long term (current) use of opiate analgesic; Z79.899 Other long term (current) drug therapy; Z83.3 Family history of diabetes mellitus; Z87.11 Personal history of peptic ulcer disease
CPT/HCPCS: 36415; 70450; 70496; 70498; 70551; 80047; 82728; 82962; 83036; 83540; 83550; 84484; 85025; 85610; 85730; 93005; 99285; G0378; Q9967; J0360; J0780; J1200; J1815; J2270; J2930; J3030

== ENCOUNTER 2021-02-23 23:46 | Emergency (ER) | payer MEDICAID ==
[~2021-02-23] VITALS: Ht 185.4 cm; Wt 122.7 kg
[~2021-02-23 23:46] MED LIST changes: +ACET325T26 PO; +AMIT25TA PO; +HYDR-3343 PO; +IBUP-1902 PO; +SUMA20SP NAS
[2021-02-24 00:41] LABS: BASOPHILS % (AUTO) 1 % (0-1); EOSINOPHILS % (AUTO) 1 % (1-7); LYMPHOCYTES % (AUTO) 27 % (22-44); MEAN CORPUSCULAR HEMOGLOBIN 25.9 pg (27.5-34.5); MEAN CORPUSCULAR HGB CONC 32.8 g/dL (33.2-36.2); MEAN PLATELET VOLUME 8.7 fL (7.4-10.4); MONOCYTES % (AUTO) 9 % (2-9); NEUTROPHILS % (AUTO) 62 % (42-75); PLATELET COUNT 162 x10^3/uL (130-400); RED BLOOD COUNT 5.47 x10^6/uL (4.38-5.82); RED CELL DISTRIBUTION WIDTH 16.6 % (9.4-14.8)
[2021-02-24 00:53] LABS: ALANINE AMINOTRANSFERASE 58 U/L (12-78); ALBUMIN 3.5 g/dL (3.4-5.0); ANION GAP 6 mmol/L (5-15); CALCIUM 9.4 mg/dL (8.5-10.1); CHLORIDE 101 mmol/L (98-107)
[2021-02-24 00:57] LABS: ALKALINE PHOSPHATASE 104 U/L (45-117); BILIRUBIN,TOTAL 0.3 mg/dL (0.2-1.0); TOTAL PROTEIN 7.3 g/dL (6.4-8.2); TROPONIN I < 0.015 ng/mL (0.000-0.045)
[2021-02-24] MEDS ORDERED: MORPHINE SULFATE 4 MG/ML, 1ML IVPush ONE (01:00)
[2021-02-24] MEDS ORDERED: ONDANSETRON 2MG/ML, 2ML IVPush ONE (01:00)
[2021-02-24] MEDS ORDERED: ONDANSETRON 2MG/ML, 2ML ONE (01:37)
[2021-02-24] MEDS ORDERED: MORPHINE SULFATE 4 MG/ML, 1ML ONE (01:38)
[2021-02-24 02:38] VITALS: BP 170/91
[2021-02-24] MEDS ORDERED: HYDROcodone/APAP 10/325 MG TABLET ONE (03:07)
[2021-02-24] MEDS ORDERED: HYDROcodone/APAP 10/325 MG TABLET PO ONE (03:30)
== END 2021-02-24 03:00 ==
LOC: ED 02-24 00:22
DX: S09.90XA Unspecified injury of head, initial encounter (principal); M54.2 Cervicalgia; R07.89 Other chest pain; R55 Syncope and collapse; R06.00 Dyspnea, unspecified; I10 Essential (primary) hypertension; I25.10 Atherosclerotic heart disease of native coronary artery without angina pectoris; E11.9 Type 2 diabetes mellitus without complications; K21.9 Gastro-esophageal reflux disease without esophagitis; Z86.73 Personal history of transient ischemic attack (TIA), and cerebral infarction without residual deficits; Z90.49 Acquired absence of other specified parts of digestive tract; X58.XXXA Exposure to other specified factors, initial encounter; Y93.89 Activity, other specified; Y92.89 Other specified places as the place of occurrence of the external cause; Y99.8 Other external cause status
CPT/HCPCS: 36415; 70450; 71045; 72125; 80053; 84484; 85025; 93005; 96374; 96375; 99285; J2270; J2405

== ENCOUNTER 2021-03-02 13:51 | Emergency (ER) | payer MEDICAID ==
[~2021-03-02] VITALS: Ht 167.6 cm; Wt 107.3 kg
[2021-03-02 13:54] VITALS: BP 182/83
[2021-03-02 15:05] LABS: PH, VENOUS 7.404 pH (7.320-7.420)
[2021-03-02 15:17] LABS: ALBUMIN 3.6 g/dL (3.4-5.0); ANION GAP 9 mmol/L (5-15); BASOPHILS % (AUTO) 1 % (0-1); CALCIUM 8.7 mg/dL (8.5-10.1); CHLORIDE 102 mmol/L (98-107); CREATININE 1.05 mg/dL (0.7-1.3); EOSINOPHILS % (AUTO) 0 % (1-7); LYMPHOCYTES % (AUTO) 23 % (22-44); MEAN CORPUSCULAR HEMOGLOBIN 26.5 pg (27.5-34.5); MEAN CORPUSCULAR HGB CONC 33.6 g/dL (33.2-36.2); MEAN PLATELET VOLUME 8.9 fL (7.4-10.4); MONOCYTES % (AUTO) 9 % (2-9); NEUTROPHILS % (AUTO) 67 % (42-75); PLATELET COUNT 148 x10^3/uL (130-400); RED BLOOD COUNT 5.29 x10^6/uL (4.38-5.82)
[2021-03-02 15:55] LABS: ACETONE, SERUM Trace (Negative)
--- NOTE | 2021-03-02 17:58 | NUR ---
patient to room from lobby
[2021-03-02 18:58] LABS: MICROSCOPIC AUTO
== END 2021-03-02 19:01 | disposition left against medical advice (07) ==
LOC: ED 18:30
DX: E11.65 Type 2 diabetes mellitus with hyperglycemia (principal); G89.29 Other chronic pain; R07.89 Other chest pain; R51.9 Headache, unspecified; I10 Essential (primary) hypertension; E78.5 Hyperlipidemia, unspecified
CPT/HCPCS: 36415; 71045; 80048; 81001; 82010; 82040; 82803; 82962; 85025; 99284